=== PATIENT | female | born 1995 | race Caucasian/White ===

== ENCOUNTER 2018-08-22 15:03 | Emergency (ER) | payer OTHER ==
[2018-08-22 15:08] VITALS: BP 117/76; PULSE 88; TEMP 99.1; BMI 45.7
[2018-08-22] MEDS ORDERED: SODIUM CHLORIDE 1,000 ML IV STA (15:56)
[2018-08-22] MEDS ORDERED: ONDANSETRON 4 MG/2 ML VIAL IVPUSH ONE (15:56)
--- NOTE | 2018-08-22 15:59 | PDOC ---
History of Present Illness - General Chief Complaint: Pain Stated Complaint: ABD PAIN Time Seen by Provider: 08/22/18 15:45 History Source: Patient Exam Limitations: No Limitations Past History - Past Medical History Allergies/Adverse Reactions: Allergies Allergy/AdvReac Type Severity Reaction Status Date / Time Sulfa (Sulfonamide Allergy Rash Verified 08/22/18 15:08 Antibiotics) meperidine HCl [From Demerol] AdvReac Severe Verified 08/22/18 15:08 Home Medications: Ambulatory Orders Vitamins (Sjr) - [ .Vitamins *Rx*] 1 tab PO DAILY 11/19/12 Albuterol Sulfate Inhaler - [Ventolin HFA Inhaler -] 1 puff PO PRN PRN 05/25/16 Ferrous Sulfate [Feosol] 325 mg PO DAILY 05/25/16 Prednisone 1 tab PO DAILY 06/15/16 Ibuprofen [Motrin -] 600 mg PO TID #21 tablet 06/16/16 Anemia: Yes Asthma: Yes Cancer: No Cardiac Disorders: No COPD: No Diabetes: No HTN: No Hypercholesterolemia: No Seizures: Yes Thyroid Disease: No - Reproductive History Expected Date of Delivery: 01/18/13 (#): 3 Para: 2 Cervical CA: No Dysfunctional Uterine Bleeding: No Ectopic : No Endometrial CA: No Polycystic Ovaries: No Therapeutic (s) & number: No Tubal Ligation: No Spontaneous : 0 - Immunization History Immunization Up to Date: Yes (patient states that she did have chickenpox vaccine.) - Suicide/Smoking/Psychosocial Hx Smoking Status: No Smoking History: Never smoked Have you smoked in the past 12 months: No Number of Cigarettes Smoked Daily: 0 If you are a former smoker, when did you quit?: 06/20 Cigars Per Day: 0 Hx Alcohol Use: No Drug/Substance Use Hx: No Substance Use Type: None Hx Substance Use Treatment: No *Physical Exam - Vital Signs Last Vital Signs Temp Pulse Resp BP Pulse Ox 99.1 F 88 18 117/76 99 08/22/18 15:04 08/22/18 15:04 08/22/18 15:04 08/22/18 15:04 08/22/18 15:04 - Physical Exam General Appearance: No: Apparent Distress Respiratory/Chest: positive: Lungs Clear, Normal Breath Sounds. negative: Respiratory Distress Cardiovascular: positive: Regular Rhythm, Regular Rate, S1, S2. negative: Murmur Gastrointestinal/Abdominal: positive: Tender (along RUQ), Soft, Other (+franklin' s sign). negative: Distended, Guarding, Rebound Musculoskeletal: negative: CVA Tenderness Integumentary: positive: Normal Color Neurologic: positive: Alert, Normal Mood/Affect Moderate Sedation - Procedure Monitoring Vital Signs: Procedure Monitoring Vital Signs Temperature 99.1 F 08/22/18 15:04 Pulse Rate 88 08/22/18 15:04 Respiratory Rate 18 08/22/18 15:04 Blood Pressure 117/76 08/22/18 15:04 O2 Sat by Pulse Oximetry (%) 99 08/22/18 15:04 ED Treatment Course - LABORATORY CBC & Chemistry Diagram: 08/22/18 16:31 08/22/18 16:31 - RADIOLOGY Radiology Studies Ordered: Category Date Time Status ABDOMEN US -LIMITED [US] Stat Ultrasound 08/22/18 15:58 Ordered Medical Decision Making - Medical Decision Making 23 y/o F hx of asthma presents with RUQ pain x 1 month, worsening past 2-3 days. States went to [facility] for pain on 08/08/18, but no imaging was done. Saw her PCP 08/14/18 and was ordered for RUQ sono but has not yet had it done. Mentions noting pain radiating to back the past few days. Also with few episodes of NBNB emesis yesterday. Has occasional watery diarrhea. Denies fever , sob, cp, urinary complaints. Denies any abdominal surgeries RUQ pain: consider gallstones, cholecystitis Plan: Labs, IVF, Zofran, RUQ sono, reassess 08/22/18 15:59 Labs unremarkable Patient appears comfortable, walking around ED RUQ sono shows no evidence of gallstones or cholecystitis Advised f/u with her PCP Stable for dc 08/22/18 18:25 *DC/Admit/Observation/Transfer Diagnosis at time of Disposition: Right upper quadrant pain - Discharge Dispostion Disposition: HOME Condition at time of disposition: Stable - Referrals Referrals: Aris Dominguez MD [Primary Care Provider] - 2 Days - Patient Instructions Printed Discharge Instructions: DI for Abdominal Pain-Adult Additional Instructions: Thank you for choosing [facility]. It was a pleasure taking care of you. There was no evidence of gallstones or cholecystitis on your imaging Your blood work was normal Please follow-up with your doctor in 2-3 days Return to the Emergency Department if your symptoms worsen or persist or have other concerning symptoms. - Post Discharge Activity
[2018-08-22] MEDS: morphine CARPU-JECT 4 MG/1 ML DISP.SYRIN IVPUSH ONE ×2 (16:00→17:09)
[2018-08-22 16:41] LABS: EOS % 2.4 % (0-4.5); HEMOGLOBIN 12.9 GM/dL (10.7-15.3); LYMPH % 29.6 % (8-40); MCHC 33.9 g/dl (32.0-36.0); MEAN CELL VOLUME 82.6 fl (80-96); MEAN PLT VOLUME 8.2 fl (7.5-11.1); MONO % 4.7 % (3.8-10.2); NEUT % 62.3 % (42.8-82.8); PLATELET COUNT 356 K/MM3 (134-434); RBC 4.61 M/mm3 (3.60-5.2); RDW 13.1 % (11.6-15.6); WHITE BLOOD COUNT 9.9 K/mm3 (4.0-10.0)
[2018-08-22] MEDS ORDERED: morphine SULFATE 4 MG/ML VIAL ONE (16:42)
[2018-08-22] MEDS ORDERED: ONDANSETRON 4 MG/2 ML VIAL ONE (16:42)
[2018-08-22 17:24] LABS: ALBUMIN 3.1 g/dl (3.4-5.0); ALK PHOS 69 U/L (45-117); ANION GAP 7 MMOL/L (8-16); BILIRUBIN,TOTAL 0.2 mg/dL (0.2-1); BLOOD UREA NITROGEN 11 mg/dL (7-18); CALCIUM 8.3 mg/dL (8.5-10.1); CHLORIDE 110 mmol/L (98-107); CO2 22 mmol/L (21-32); CREATININE 0.8 mg/dL (0.55-1.3); GLUCOSE,RANDOM 75 mg/dL (74-106); LIPASE 137 U/L (73-393); SGPT/ALT 26 U/L (13-61); SODIUM 139 mmol/L (136-145); TOT PROT 7.6 g/dl (6.4-8.2)
[2018-08-22 17:25] LABS: POTASSIUM 4.6 mmol/L (3.5-5.1); SGOT/AST 34 U/L (15-37)
== END 2018-08-22 18:46 | disposition home or self-care (01) ==
LOC: JER 15:03
PROC: 3E033GC Introduction of Other Therapeutic Substance into Peripheral Vein, Percutaneous Approach (ICD-10-PCS; principal; 2018-08-22)
DX: R10.11 Right upper quadrant pain (principal); D64.9 Anemia, unspecified; J45.909 Unspecified asthma, uncomplicated
CPT/HCPCS: 36415; 76705-TC; 80053; 83690; 84703; 85025; 96374; 99283-25; J7030

== ENCOUNTER → 2019-03-10 | Day surgery (SDC) | payer OTHER ==
[2019-03-05 15:43] VITALS: BMI 47.2
[~2019-03-10] MED LIST: ACETAMINOPHEN 325 MG TABLET (FP) PO PRN; LACTATED RINGERS SOLUTION 1,000 ML IV SCH; MIDAZOLAM HCL 2 MG/2 ML SINGLE DOSE VIAL ONE; ONDANSETRON 4 MG/2 ML VIAL IVPUSH PRN; PROMETHAZINE HCL 25 MG/1 ML VIAL IVPB ONE; PROMETHAZINE HCL 25 MG/1 ML VIAL IVPUSH PRN; PROMETHAZINE HCL 25 MG/1 ML VIAL ONE; ROCURONIUM BROMIDE 50 MG/5 ML SYRINGE ONE; oxyCODONE HCL 5 MG TABLET PO PRN
--- NOTE | 2019-03-10 09:14 | HP ---
History & Physical Update - History History: No Change - Physical Physical: No Change - Assessment Assessment: No Change - Plan Plan: No Change (Agree with H&P from 03/05/19 - [facility] for hysteroscopy, D&C)
--- NOTE | 2019-03-10 13:11 | OP ---
Operative Note - Note: Operative Date: 03/10/19 (dictation [id number]) Pre-Operative Diagnosis: Abnormal uterine bleeding Operation: hysteroscopy, D&C Findings: b/l tubal ostea noted Post-Operative Diagnosis: Same as Pre-op Surgeon: Jerrica Silva Anesthesia: General Specimens Removed: endometrial curettings Estimated Blood Loss (mls): 5 Operative Report Dictated: Yes
[2019-03-10 16:32] VITALS: BP 110/59; PULSE 82; TEMP 98.1
--- NOTE | 2019-03-10 16:33 | CON.CARD ---
Consult Consult Specialty:: Cardiology Referred by:: Jerrica Silva Reason for Consultation:: chest pain - History of Present Illness Chief Complaint: chest pain History of Present Illness: 24 year old female with pmhx of asthma, reports lyme disease, ?lupus but not meds, migraines, and multiple chronic pain complaints/syndromes who underwent D/ C today for abnormal uterine bleeding. She had some brief central chest pressure after the procedure. Nonradiating. No sob, palpitations, or diaphoresis. No pnd, orthopnea, or edema. Exercise tolerance very limited due to chronic knee pain. No family history of cad/mi. No family history of sudden . CE's negative x1 EKG: sinus rhythm at 73bpm, nl axis, no acute st changes - History Source History Provided By: Patient, Medical Record - Past Medical History ...LMP: 09/21/15 - Alcohol/Substance Use Hx Alcohol Use: Yes (OCCAS) - Smoking History Smoking history: Former smoker Have you smoked in the past 12 months: Yes Aproximately how many cigarettes per day: 0 If you are a former smoker, when did you quit?: 06/20 Home Medications - Allergies Allergies/Adverse Reactions: Allergies Allergy/AdvReac Type Severity Reaction Status Date / Time Sulfa (Sulfonamide Allergy Rash Verified 08/22/18 15:08 Antibiotics) Fish Containing Products AdvReac Severe Rash Verified 11/11/18 10:22 meperidine HCl [From Demerol] AdvReac Severe Verified 08/22/18 15:08 - Home Medications Home Medications: Ambulatory Orders Albuterol Sulfate Inhaler - [Ventolin HFA Inhaler -] 1 puff PO PRN PRN 05/25/16 Ibuprofen [Motrin -] 600 mg PO TID #21 tablet 06/16/16 Amitriptyline HCl [Elavil -] 25 mg PO HS 11/11/18 Ascorbic Acid [Vitamin C -] 500 mg PO DAILY 11/11/18 Diclofenac Sodium [Voltaren] 2 gm TP TID PRN #3 tube 11/11/18 Meclizine HCl [Antivert -] 25 mg PO DAILY 11/11/18 Montelukast Na [Singulair -] 10 mg PO HS 11/11/18 propRANOLol HCL [Inderal Xl] 80 mg PO DAILY 11/11/18 Ergocalciferol (Vitamin D2) [Vitamin D2] 50,000 unit PO Q7D #4 capsule 11/20/18 Fluticasone Prop 0.05% Nasal [Flonase -] 1 - 2 spray NS DAILY 03/05/19 Fluticasone/Salmeterol [Advair Hfa 115-21 Mcg Inhaler] 2 inh PO BID 03/05/19 Galcanezumab-Gnlm [Emgality] 120 mg SQ MONTHLY 03/05/19 Ondansetron HCl [Zofran] 8 mg PO PRN PRN 03/05/19 Sumatriptan Succinate [Imitrex] 25 mg PO PRN 03/05/19 Cetirizine HCl [Zyrtec -] 10 mg PO DAILY 03/10/19 Cyclobenzaprine HCl [Flexeril -] 10 mg PO DAILY 03/10/19 Family Disease History - Family Disease History Family Disease History: Heart Disease: Mother (psych), Other: Father (no contact - in [place] [facility]), Mother, Sister (back pain, ), Son, Daughter Vital Signs: Vital Signs Temperature 98.3 F 03/10/19 15:45 Pulse Rate 75 03/10/19 15:45 Respiratory Rate 18 03/10/19 15:45 Blood Pressure 102/59 L 03/10/19 15:45 O2 Sat by Pulse Oximetry (%) 97 03/10/19 15:45 Constitutional: Yes: No Distress Neck: Yes: Supple Respiratory: Yes: CTA Bilaterally Gastrointestinal: Yes: Soft Cardiovascular: Yes: Regular Rate and Rhythm JVD: No Carotid Bruit: No PMI: Non-Displaced Heart Sounds: Yes: S1, S2 Murmur: No: Systolic Murmur Edema: No - Other Data Labs, Other Data: Troponin, BNP 03/10/19 14:00 Troponin I < 0.02 Troponin, BNP 03/10/19 14:00 Troponin I < 0.02 Imaging - Results EKG: Image Reviewed Assessment/Plan 24 year old female with pmhx of asthma, reports lyme disease, ?lupus but not meds, migraines, and multiple chronic pain complaints/syndromes who underwent D/ C today for abnormal uterine bleeding. She had some brief central chest pressure after the procedure. Nonradiating. No sob, palpitations, or diaphoresis. No pnd, orthopnea, or edema. Exercise tolerance very limited due to chronic knee pain. No family history of cad/mi. No family history of sudden . CE's negative x1 EKG: sinus rhythm at 73bpm, nl axis, no acute st changes 1) Atypical chest pain Has not recurred Exam unremarkable EKG no acute changes suggestive of ischemia No family history of sudden or cad/mi. Will have patient follow up in the office with Dr. Boom Schmidt. Spoke to Buffy in the office and she will contact patient tomorow with an appt. [phone]. Told patient to return to the ER if any recurrent chest pain.
--- NOTE | 2019-03-10 18:30 | OP ---
DATE OF OPERATION: 03/10/2019 PREOPERATIVE DIAGNOSIS: Abnormal uterine bleeding. POSTOPERATIVE DIAGNOSIS: Abnormal uterine bleeding. PROCEDURE: Hysteroscopy, dilation and curettage. SURGEON: Jerrica Silva MD ANESTHESIA: General by ESTIMATED BLOOD LOSS: 5 mL. COMPLICATIONS: None. COUNTS: Sponge, needle, and instrument count correct. DISPOSITION: Stable to PACU. BRIEF HISTORY AND PROCEDURE: The patient is a 24-year-old female who had been seen in the office with complaints of abnormal uterine bleeding. She was consented for her options and elected to undergo hysteroscopy/D&C in the operating room. Consents for the procedure were signed in the office. She was admitted to [facility] ambulatory unit on March 10, 2019, were consents were re-confirmed. The patient was taken back to the operating room and given general anesthesia, placed in the dorsal lithotomy position, prepped and draped in the usual sterile fashion and a hard timeout was performed. A speculum was placed inside the vagina. The cervix was easily visualized and anterior lip was grasped with a tenaculum. The cervix was dilated to accommodate a diagnostic hysteroscope, which was advanced to the fundus of the uterus. Bilateral tubal ostia were noted. A sharp D&C was performed in all 4 mcdonough of the uterus. A suction D&C was performed to remove detached endometrial curettings, and specimens were sent to Pathology for permanent evaluation. Once final pass with the hysteroscope revealed no evidence of uterine perforation. All instruments were removed from the vagina. Minimal bleeding was noted from the cervical os as well as tenaculum sites. The patient was awoken from anesthesia. Sponge and instrument count was correct. She was stable in the recovery room after the procedure. JERRICA SILVA DO /[id number]
--- NOTE | 2019-03-10 21:20 | EKG ---
Test Reason : Blood Pressure : / mmHG Vent. Rate : 073 BPM Atrial Rate : 073 BPM P-R Int : 150 ms QRS Dur : 076 ms QT Int : 382 ms P-R-T Axes : 015 000 015 degrees QTc Int : 420 ms NORMAL SINUS RHYTHM WITH SINUS ARRHYTHMIA POSSIBLE ANTERIOR INFARCT , AGE UNDETERMINED ABNORMAL ECG WHEN COMPARED WITH ECG OF 29-JAN-2016 17:30, NONSPECIFIC T WAVE ABNORMALITY, WORSE IN ANTERIOR LEADS PATIENT SITTING UP IN BED DURING EKG Confirmed by SHELBIE ENRIQUE MD ([id number]) on 03/10/2019 9:19:45 PM Referred By: Marecla FINK Confirmed By:SHELBIE ENRIQUE MD
--- NOTE | 2019-03-11 17:56 | PATH ---
Surgical Pathology Report Patient Name: ELIDA MACKENZIE [facility]. Rec. #: [id number] /Age/Gender: 1995 (Age: 24) / F Account: [id number] Location: [facility] SURGICAL Taken: 03/10/2019 Received: 03/10/2019 Reported: 03/11/2019 Physicians: Jerrica Silva M.D. Specimen(s) Received ENDOMETRIAL CURETTINGS Clinical History AUB Final Diagnosis ENDOMETRIAL CURETTINGS: FRAGMENTS OF PROLIFERATIVE ENDOMETRIUM. ENDOCERVICAL TISSUE WITH SQUAMOUS METAPLASIA. Electronically Signed Domonique Ni M.D. Gross Description Received in formalin, labeled "endometrial curettings" are multiple brown portions of soft tissue measuring 2.0 x 2.0 x 0.1 cm in aggregate. The specimens are submitted in toto in two cassettes. SHIVANI/03/10/2019 pedro/03/10/2019
== END | disposition home or self-care (01) ==
LOC: JASU-SURG 05:34
PROVIDERS: ATTEND Obstetrics & Gynecology
PROC: 0UDB8ZX Extraction of Endometrium, Via Natural or Artificial Opening Endoscopic, Diagnostic (ICD-10-PCS; principal; 2019-03-10 11:00)
DX: N93.9 Abnormal uterine and vaginal bleeding, unspecified (principal); R07.89 Other chest pain
CPT/HCPCS: 36415; 82550; 82553; 84484; 84703; 86850; 86900; 86901; 88305-TC; 93005; 93010; 94760

== ENCOUNTER 2020-03-21 01:25 | Emergency (ER) | payer OTHER ==
[2020-03-21 01:44] VITALS: TEMP 98.4; BMI 45.3
--- NOTE | 2020-03-21 01:44 | PDOC ---
History of Present Illness - General Chief Complaint: Lightheaded Stated Complaint: DIZZINESS Time Seen by Provider: 03/21/20 01:33 History Source: Patient - History of Present Illness Initial Comments: 03/21/20 02:44 25 year old female Reports that she is 9 weeks brought in by ambulance for dizziness while having a heated conversation with nephew. patient had one episode of vomiting and turned pale. patient reports that she has been having nausea / vomiting and unable to keep food down. patient is currently on zofran for nausea, Denies vaginal bleeding, vaginal discharge, urinary symptoms. Patient reports that her symptoms of dizziness is improving now. denies chest pain, fever/ chills, headache Denies shaking episode or incontinence of bowel or urine 03/21/20 03:30 Past History - Medical History Allergies/Adverse Reactions: Allergies Allergy/AdvReac Type Severity Reaction Status Date / Time Sulfa (Sulfonamide Allergy Rash Verified 01/20/20 12:02 Antibiotics) Fish Containing Products AdvReac Severe Rash Verified 01/20/20 12:02 meperidine HCl [From Demerol] AdvReac Severe Verified 01/20/20 12:02 Home Medications: Ambulatory Orders Albuterol Sulfate Inhaler - [Ventolin HFA Inhaler -] 1 puff PO PRN PRN 05/25/16 Diclofenac Sodium [Voltaren] 2 gm TP TID PRN #3 tube 06/14/19 Ibuprofen [Motrin -] 800 mg PO PRN PRN 01/20/20 Propranolol HCl 80 mg PO BID 01/20/20 Cephalexin Monohydrate [Keflex -] 500 mg PO BID #20 capsule 03/21/20 Doxylamine Succinate/Vit B6 [Ana María Doty 10-10 mg Tablet] 1 each PO HS PRN #14 tablet. 03/21/20 Anemia: No Asthma: Yes (has inhaler) Cancer: No Cardiac Disorders: Yes (seeing cardiology ) CVA: No COPD: No CHF: No Diabetes: No GI Disorders: Yes (cholecystitis) HTN: Yes Hypercholesterolemia: No Liver Disease: No Seizures: Yes (after an epidural) Thyroid Disease: No - Surgical History Neurologic Surgery: No - Reproductive History Expected Date of Delivery: 01/18/13 (#): 3 Para: 2 Cervical CA: No Dysfunctional Uterine Bleeding: No Ectopic : No Endometrial CA: No Polycystic Ovaries: No Therapeutic (s) & number: No Tubal Ligation: No Spontaneous : 0 - Immunization History Immunization Up to Date: Yes (patient states that she did have chickenpox vaccine.) - Psycho-Social/Smoking History Smoking Status: No Smoking History: Former smoker Have you smoked in the past 12 months: No Number of Cigarettes Smoked Daily: 0 If you are a former smoker, when did you quit?: 06/20 Cigars Per Day: 0 'Breaking Loose' booklet given: 03/05/19 *Physical Exam - Vital Signs 03/21/20 03:26 Last Vital Signs Temp Pulse Resp BP Pulse Ox 98.4 F 98 H 16 112/69 99 03/21/20 01:36 03/21/20 01:36 03/21/20 01:36 03/21/20 01:36 03/21/20 01:36 - Physical Exam General Appearance: Yes: Appropriately Dressed Respiratory/Chest: positive: Lungs Clear, Normal Breath Sounds Gastrointestinal/Abdominal: positive: Normal Bowel Sounds, Soft. negative: Tender Extremity: positive: Normal Capillary Refill, Normal Inspection, Normal Range of Motion Integumentary: positive: Normal Color, Dry, Warm Neurologic: positive: Fully Oriented, Alert, Normal Mood/Affect ED Treatment Course - LABORATORY CBC & Chemistry Diagram: 03/21/20 02:17 03/21/20 02:17 Medical Decision Making - Medical Decision Making A:Hyperemesis gravidum; dizziness P: labs EKG TVUS 03/21/20 02:47 TVUS: Single live intrauterine gestation with measurements corresponding to 9 weeks and 2 days. A yolk sac is observed. heart rate is 156 bpm. Cervix measures 3.86 cm in length and is closed. Amniotic fluid is subjectively normal. A normal left ovary. Right ovary could not be visualized. 03/21/20 03:30 patient is feeling better. patient has a business consultant appointment in 2 days. Discharge - Discharge Information Problems reviewed: Yes Clinical Impression/Diagnosis: Orthostatic dizziness, Hyperemesis affecting , antepartum UTI (urinary tract infection) Qualifiers: Urinary tract infection type: acute cystitis Hematuria presence: without hematuria Qualified Code(s): N30.00 - Acute cystitis without hematuria Disposition: HOME - Additional Discharge Information Prescriptions: Doxylamine Succinate/Vit B6 [Dickishoregis Dr 10-10 mg Tablet] 1 each PO HS PRN #14 tablet.dr PALENCIA Reason: Nausea Cephalexin Monohydrate [Keflex -] 500 mg PO BID #20 capsule - Follow up/Referral - Patient Discharge Instructions Patient Printed Discharge Instructions: Hyperemesis Gravidarum Additional Instructions: Drink plenty of fluids. Eat smaller meals Take Diclegis as prescribed It is important that you follow-up with the [facility] as soon as possible. Return to the ER if you are soaking 2 pads per hour, severe abdominal pain, or worsening symptoms. - Post Discharge Activity Work/Back to School Note: Back to Work
--- NOTE | 2020-03-21 01:45 | PDOC ---
*Physical Exam - Vital Signs Last Vital Signs Temp Pulse Resp BP Pulse Ox 98.4 F 98 H 16 112/69 99 03/21/20 01:36 03/21/20 01:36 03/21/20 01:36 03/21/20 01:36 03/21/20 01:36 ED Treatment Course - LABORATORY CBC & Chemistry Diagram: 03/21/20 02:17 03/21/20 02:17 Medical Decision Making - Medical Decision Making 03/21/20 01:45 Patient seen by the advanced practice provider under my supervision. Ancillary testing reviewed as necessary. I agree with plan as outlined by the advanced practice provider. Discharge - Discharge Information Problems reviewed: Yes Clinical Impression/Diagnosis: Orthostatic dizziness, Hyperemesis affecting , antepartum UTI (urinary tract infection) Qualifiers: Urinary tract infection type: acute cystitis Hematuria presence: without hematuria Qualified Code(s): N30.00 - Acute cystitis without hematuria Disposition: HOME - Additional Discharge Information Prescriptions: Doxylamine Succinate/Vit B6 [Ana María Doty 10-10 mg Tablet] 1 each PO HS PRN #14 tablet. PRN Reason: Nausea Cephalexin Monohydrate [Keflex -] 500 mg PO BID #20 capsule - Follow up/Referral - Patient Discharge Instructions Patient Printed Discharge Instructions: Hyperemesis Gravidarum Additional Instructions: Drink plenty of fluids. Eat smaller meals Take Diclegis as prescribed It is important that you follow-up with the [facility] as soon as possible. Return to the ER if you are soaking 2 pads per hour, severe abdominal pain, or worsening symptoms. - Post Discharge Activity Work/Back to School Note: Back to Work
[2020-03-21] MEDS ORDERED: SODIUM CHLORIDE 1,000 ML IV STA (01:55)
[2020-03-21] MEDS ORDERED: ONDANSETRON 4 MG/2 ML VIAL IVPB ONE (02:02)
--- OUTSIDE RECORDS SUMMARY | 2020-03-21 02:14 | XMS ---
:1995 Demographics Address [address] [place] [address] Mobile Email Address Preferred Language en Marital Status or Congregation Affiliation [facility] Ethnic Group or Author Organization [facility] Care Team Providers Name Role Phone ENRRIQUE VICTORIA Unavailable Unavailable CALI BOSWELL Unavailable Unavailable ED STAFF PHYSICIAN, STAFF Unavailable Unavailable [facility], WJCS9 Unavailable Unavailable HINDU, HUMAYUN Unavailable Unavailable ED STAFF PHYSICIANSTEPHANI Unavailable Unavailable [facility], HDSW9 Unavailable Unavailable MAHI BUSH Unavailable Unavailable DIMITRY FOSS Unavailable Unavailable ED STAFF PHYSICIAN Unavailable Unavailable Re-disclosure Warning The records that you are about to access may contain information from federally- assisted alcohol or drug abuse programs. If such information is present, then the following federally mandated warning applies: This information has been disclosed to you from records protected by federal confidentiality rules (42 CFR part 2). The federal rules prohibit you from making any further disclosure of this information unless further disclosure is expressly permitted by the written consent of the person to whom it pertains or as otherwise permitted by 42 CFR part 2. A general authorization for the release of medical or other information is NOT sufficient for this purpose. The Federal rules restrict any use of the information to criminally investigate or prosecute any alcohol or drug abuse patient.The records that you are about to access may contain highly sensitive health information, the redisclosure of which is protected by Article 27-F of the [place] State Public Health law. If you continue you may haveaccess to information: Regarding HIV / AIDS; Provided by facilities licensed or operated by the [facility] Office of Mental Health; or Provided by the [facility] Office for People With Developmental Disabilities. If such information is present, then the following [facility] mandated warning applies: This information has been disclosed to you from confidential records which are protected by state law. State law prohibits you from making any further disclosure of this information without the specific written consent of the person to whom it pertains, or as otherwise permitted by law. Any unauthorized further disclosure in violation of state law may result in a fine or group home sentence or both. A general authorization for the release of medical or other information is NOT sufficient authorization for further disclosure. Allergies and Adverse Reactions Type Description Substance Reaction Status Data Source(s ) Propensity to crab and milk No known intolerance Active eCW3 ([facility] Sat[facility]on adverse allergies [facility] reactions (situation) Care) Propensity to crab and milk No known intolerance Active eCW3 ([facility] Sat[facility] adverse allergies [facility] reactions (situation) Care) Propensity to crab and milk No known intolerance Active eCW3 ([facility] adverse allergies [facility] reactions (situation) Care) Propensity to crab and milk No known intolerance Active eCW3 ([facility] Sat[facility] adverse allergies [facility] reactions (situation) Care) Propensity to crab and milk No known intolerance Active eCW3 ([facility] Sat[facility]on adverse allergies [facility] reactions (situation) Care) Propensity to crab and milk No known intolerance Active eCW3 ([facility] Sat[facility] adverse allergies [facility] reactions (situation) Care) Propensity to crab and milk No known intolerance Active eCW3 ([facility] adverse allergies [facility] reactions (situation) Care) Propensity to crab and milk No known intolerance Active eCW3 ([facility] Sat[facility] adverse allergies [facility] reactions (situation) Care) Drug allergy Demerol Meperidine anaphylaxis Active eCW3 ([facility]) Drug allergy Sulfa Sulfa [place] (Sulfonamide (Sulfonamide Pending sale to [facility]) Antibiotics) Care Corpo ration Drug allergy No Known Drug No Known Drug [facility] Allergies [facility] Corpor[facility] on Food allergy Seafood [facility] on Propensity to sulfa No known Anaphylaxis Active eCW3 ([facility] on adverse allergies [facility] reactions (situation) Care) Propensity to sulfa No known Anaphylaxis Active eCW3 ([facility] on adverse allergies [facility] reactions (situation) Care) Propensity to sulfa No known Anaphylaxis Active eCW3 ([facility] adverse allergies [facility] reactions (situation) Care) Propensity to sulfa No known Anaphylaxis Active eCW3 ([facility] adverse allergies [facility] reactions (situation) Care) Propensity to sulfa No known Anaphylaxis Active eCW3 ([facility] adverse allergies [facility] reactions (situation) Care) Propensity to sulfa No known Anaphylaxis Active eCW3 ([facility] adverse allergies [facility] reactions (situation) Care) Propensity to sulfa No known Anaphylaxis Active eCW3 ([facility] adverse allergies [facility] reactions (situation) Care) Propensity to sulfa No known Anaphylaxis Active eCW3 ([facility] adverse allergies [facility] reactions (situation) Care) Propensity to sulfa No known Anaphylaxis Active eCW3 ([facility] adverse allergies [facility] reactions (situation) Care) Propensity to sulfa No known Anaphylaxis Active eCW3 ([facility] adverse allergies [facility] reactions (situation) Care) Encounters Encounter Providers Location Date Indications Data Source(s ) Outpatient Attender: PRUDENCE 03/23/2020 N91.2 [facility] DIMITRY EagleAdmitter: 06:00:00 AM [facility] DIMITRY FOSS EDT Corporati on A.Referrer: MAHI BUSH N91.2 Outpatient Attender: FELICITY 03/16/2020 N91.2 [facility] HINDU, 02:19:00 [facility] Sumit VICTORIA N91.2 R39.14 Outpatient Attender: CALI Sheikh 02/14/2020 07:10:00 A [facility] CALI LAdmitter: CALI LEIVA LReferrer: CALI Fuentes Outpatient Attender: [id number] [facility] 02/05/2020 12:28:35 PM I ([facility] EDT Care [facility]) Patient admitted. Emergency Attender: ED STAFF H 01/30/2020 09:32:00 PM [facility] PHYSICIANAttender: STAFF ED EDT - 01/31/2020 Medical Center STAFF PHYSICIANAdmitter: ED 01:50:00 AM EDT STAFF PHYSICIAN Patient discharged. Emergency Attender: STEPHANI ED STAFF H 12/16/2019 06:59:00 PM [facility] PHYSICIANAttender: STAFF ED EDT - 12/16/2019 Medical Center STAFF PHYSICIANAdmitter: STEPHANI 10:17:00 PM EDT ED STAFF PHYSICIAN Patient discharged. Emergency Attender: ED STAFF H 10/02/2019 08:17:00 PM [facility] PHYSICIANAttender: STAFF ED EDT - 10/03/2019 Medical Center STAFF PHYSICIANAdmitter: ED 12:45:00 AM EDT STAFF PHYSICIAN Patient discharged. Outpatient Attender: [id number] [facility] 09/24/2019 06:52:18 AM [facility] ([facility] EDT Collaborative) Patient admitted. Outpatient Attender: [id number] [facility] 08/25/2019 02:24:32 PM [facility] ([facility] Care EST Collaborative) Patient admitted. Outpatient Attender: [id number] [facility] 08/25/2019 02:24:29 PM [facility] ([facility] EST Collaborative) Patient admitted. Outpatient [facility] 04/08/2019 12:00:00 AM eCW3 ([place] [id number] EDT - 04/08/2019 12:00:00 Health Care) AM EDT Outpatient [facility] 02/25/2019 12:00:00 AM eCW3 ([place] [id number] EDT - 02/25/2019 12:00:00 Health Care) AM EDT Outpatient [facility] 02/17/2019 12:00:00 AM eCW3 ([place] [id number] EDT - 02/17/2019 12:00:00 [facility] Care) AM EDT Outpatient [facility] 01/29/2019 12:00:00 AM eCW3 ([place] [id number] EDT - 01/29/2019 12:00:00 Health Care) AM EDT Outpatient 01/25/2019 10:44:40 AM GS I ([facility] EDT Care Collabora tive) Patient admitted. Outpatient 01/25/2019 10:44:37 AM EDT [facility] ([facility] Care Collaborative) Patient admitted. Outpatient 01/25/2019 10:44:25 AM EDT [facility] ([facility] Care Collaborative) Patient admitted. Outpatient 01/25/2019 10:44:21 AM EDT [facility] ([facility] Care Collaborative) Patient admitted. Outpatient [facility] 12/11/2018 12:00:00 AM eCW3 ([facility] A28 EDT - 12/11/2018 Health C are) 12:00:00 AM EDT Outpatient [facility] 11/12/2018 12:00:00 AM eCW3 ([facility] A28 EDT - 11/12/2018 Health C are) 12:00:00 AM EDT New Therapy, 45-60 [facility] 10/30/2018 12:00:00 AM eCW3 ([facility] A28 EDT - 10/30/2018 Health C are) 12:00:00 AM EDT (CPE) Annual/CPE [facility] 10/29/2018 12:00:00 A M eCW3 ([facility] A28 EDT - 10/29/2018 Health are) 12:00:[address] [facility] 10/15/2018 12:00:00 AM eCW3 ([facility] A28 EDT - 10/15/2018 Health are) 12:00:00 AM EDT Emergency H 10/08/2018 12:34:00 AM [facility] Outpatient [facility] 09/25/2018 12:00:00 AM eCW3 ([facility] A28 EDT - 09/25/2018 Health C are) 12:00:00 AM EDT Immunizations Vaccine Date Status Description Data Source(s) New in 2011. IIV4 05/24/2015 completed eCW3 ([facility] [place] 01:51:00 PM [facility]) HPV, quadrivalent 12/27/2011 completed eCW3 ([facility] 03:10:50 PM [facility]) HPV, quadrivalent 04/19/2011 completed eCW3 ([facility] [place] 11:48:42 AM ED [facility]) LAIV3 04/02/2011 completed eCW3 ([facility] 09:32:07 PM ED [facility]) Hep A, ped/adol, 2 dose 12/20/2010 completed eCW3 ([facility] [place] 05:16:21 PM ED [facility]) meningococcal MCV4P 12/20/2010 completed eCW3 ( [facility] [place] 05:16:07 PM ED [facility]) Medications Medication Brand Start Product Dose Route Administrative Pharmacy at Indications Reaction Description Data Name Date Form Instructions Instructions Source(s) Ondansetron Zofran 12/22/ 1.0 active Zofran 4 MG eCW3 4 MG Oral 4 MG 2020 {tabl ([facility] Tablet 12:00: et} [place] [Zofran] 00 AM Health Zofran 4 MG EDT Care) Ondansetron Zofran .0 active Zofran 4 MG eCW3 4 MG Oral 4 MG 2019 {tabl ([facility] Tablet 12:00: et} [place] [Zofran] 00 AM Health Zofran 4 MG EDT Care) Ondansetron Zofran .0 active Zofran 4 MG eCW3 4 MG Oral 4 MG 2019 {tabl ([facility] Tablet 12:00: et} [place] [Zofran] 00 AM Health Zofran 4 MG EDT Care) Ondansetron Zofran .0 active Zofran 4 MG eCW3 4 MG Oral 4 MG 2019 {tabl ([facility] Tablet 12:00: et} [place] [Zofran] 00 AM Health Zofran 4 MG EDT Care) Levofloxaci Levaqu 1.0 active Levaqui n 500 eCW3 n 500 MG in 500 2019 {tabl MG ([facility] Oral Tablet MG 12:00: et} [place] [Levaquin] 00 AM Health Levaquin EDT Care) 500 MG Acidophilus Acidop 09/26/ active Acidoph ilus eCW3 Probiotic hilus 2019 Probiotic ([facility] Blend - Probio 12:00: Blend - [place] tic 00 AM Health Blend EDT Care) - Hydrocortis Neomyc 08/18/ 4.0 suspend Neomyc in-[place] eCW3 one 10 in-[place] 2019 {drop ed ymyxin-HC ([place] MG/ML / ymyxin 12:00: s_int 3.5-69203-6 [place] Neomycin -HC 00 AM o_aff Health 3.5 MG/ML / 3.5-10 EST ected Care) Polymyxin B 000-1 _ear} 20423 UNT/ML Otic Solution Neomycin-Po lymyxin-HC 3.5-34762-2 2 ML Ketoro 08/18/ 2.0 suspend Ketorolac eCW 3 Ketorolac lac 2019 {ml} ed Tromethamine ([facility] udson Tromethamin Tromet 12:00: 60 MG/2ML [place] e 30 MG/ML hamine 00 AM Health Cartridge 60 EST Care) Ketorolac MG/2ML Tromethamin e 60 MG/2ML Hydrocortis Neomyc 4.0 suspend Neomyc in-[place] eCW3 one 2019 {drop ed ymyxin-HC ([place] MG/ML / ymyxin 12:00: s_int 3.5-95729-5 [place] Neomycin -HC 00 AM o_aff Health 3.5 MG/ML / 3.5-10 EST ected Care) Polymyxin B 000-1 _ear} 70603 UNT/ML Otic Solution Neomycin-Po lymyxin-HC 3.5-38915-1 2 ML Ketoro 08/18/ 2.0 suspend Ketorolac eCW 3 Ketorolac lac 2019 {ml} ed Tromethamine (H udson Tromethamin Tromet 12:00: 60 MG/2ML [place] e 30 MG/ML hamine 00 AM Health Cartridge 60 EST Care) Ketorolac MG/2ML Tromethamin e 60 MG/2ML Hydrocortis Neomyc 4.0 suspend Neomyc in-[place] eCW3 one 2019 {drop ed ymyxin-HC ([place] MG/ML / ymyxin 12:00: s_int 3.5-50228-7 [place] Neomycin -HC 00 AM o_aff Health 3.5 MG/ML / 3.5-10 EST ected Care) Polymyxin B 000-1 _ear} 16133 UNT/ML Otic Solution Neomycin-Po lymyxin-HC 3.5-87661-9 2 ML Ketoro 08/18/ 2.0 suspend Ketorolac eCW 3 Ketorolac lac 2020 {ml} ed Tromethamine ([facility] ud[place] Tromethamin Tromet 12:00: 60 MG/2ML [place] e 30 MG/ML hamine 00 AM Health Cartridge 60 EST Care) Ketorolac MG/2ML Tromethamin e 60 MG/2ML Hydrocortis Neomyc 4.0 suspend Neomyc in-[place] eCW3 one 2019 {drop ed ymyxin-HC ([place] MG/ML / ymyxin 12:00: s_int 3.5-52429-3 [place] Neomycin -HC 00 AM o_aff Health 3.5 MG/ML / 3.5-10 EST ected Care) Polymyxin B 000-1 _ear} 89794 UNT/ML Otic Solution Neomycin-Po lymyxin-HC 3.5-99505-9 2 ML Ketoro 2.0 suspend Ketorolac eCW 3 Ketorolac lac 2020 {ml} ed Tromethamine (H udson Tromethamin Tromet 12:00: 60 MG/2ML [place] e 30 MG/ML hamine 00 AM Health Cartridge 60 EST Care) Ketorolac MG/2ML Tromethamin e 60 MG/2ML 2 ML Ketoro 2.0 suspend Ketorolac eCW 3 Ketorolac lac 2020 {ml} ed Tromethamine (H udson Tromethamin Tromet 12:00: 60 MG/2ML [place] e 30 MG/ML hamine 00 AM Health Cartridge 60 EST Care) Ketorolac MG/2ML Tromethamin e 60 MG/2ML 2 ML Ketoro 2.0 suspend Ketorolac eCW 3 Ketorolac lac 2020 {ml} ed Tromethamine (H udson Tromethamin Tromet 12:00: 60 MG/2ML [place] e 30 MG/ML hamine 00 AM Health Cartridge 60 EST Care) Ketorolac MG/2ML Tromethamin e 60 MG/2ML Hydrocortis Neomyc 4.0 suspend Neomyc in-[place] eCW3 2019 {drop ed ymyxin-HC ([place] MG/ML / ymyxin 12:00: s_int 3.5-90281-4 [place] Neomycin -HC 00 AM o_aff Health 3.5 MG/ML / 3.5-10 EST ected Care) Polymyxin B 000-1 _ear} 07489 UNT/ML Otic Solution Neomycin-Po lymyxin-HC 3.5-42114-6 Hydrocortis Neomyc 4.0 suspend Neomyc in-[place] eCW3 one 2019 {drop ed ymyxin-HC ([place] MG/ML / ymyxin 12:00: s_int 3.5-61130-3 [place] Neomycin -HC 00 AM o_aff Health 3.5 MG/ML / 3.5-10 EST ected Care) Polymyxin B 000-1 _ear} 43196 UNT/ML Otic Solution Neomycin-Po lymyxin-HC 3.5-25868-6 Cepacol Cepaco .0 active Cepacol Sor e eCW3 Sore Throat l Sore 2018 {loze Throat (Hu dson 10-2.1 MG Throat 12:00: nge_a 10-2.1 MG [place] 10-2.1 00 AM s_nee Health MG EST ded} Care) Amoxicillin Amoxic .0 suspend Amoxic illin- eCW3 875 MG / illin- 2018 {tabl ed Pot ([place] Clavulanate Pot 12:00: et} Clavulanate [place] 125 MG Oral Clavul 00 AM 875-125 MG Health Tablet anate EST Care) Amoxicillin 875-12 -Pot 5 MG Clavulanate 875-125 MG Face Mask Face 06/16/ suspend Face Mask eCW3 Earloop-Sty Mask 2018 ed Earloop-Styl ([place] le - Earloo 12:00: e - [place] p-Styl 00 AM Health e - EST Care) Metoclopram Metocl .0 active Metoclo prami eCW3 kallie 1 MG/ML oprami 2018 {ml_b de HCl 10 ([facility] Oral de HCl 12:00: efore MG/10ML [place] Solution 10 00 AM _meal Health Metoclopram MG/10M EST s} Care) kallie HCl 10 L MG/10ML Amoxicillin Amoxic .0 suspend Amoxic illin- eCW3 875 MG / illin- 2018 {tabl ed Pot ([place] Clavulanate Pot 12:00: et} Clavulanate [place] 125 MG Oral Clavul 00 AM 875-125 MG Health Tablet anate EST Care) Amoxicillin 875-12 -Pot 5 MG Clavulanate 875-125 MG Face Mask Face 06/16/ active Face Mask e CW3 Earloop-Sty Mask 2019 Earloop-Styl ([place] le - [place] 12:00: e - [place] p-Styl 00 AM Health e - EST Care) Metoclopram Metocl .0 active Metoclo prami eCW3 kallie 1 MG/ML oprami 2018 {ml_b de HCl 10 ([facility] Oral de HCl 12:00: efore MG/10ML [place] Solution 10 00 AM _meal Health Metoclopram MG/10M EST s} Care) kallie HCl 10 L MG/10ML Amoxicillin Amoxic 1.0 suspend Amoxic illin- eCW3 875 MG / illin- 2018 {tabl ed Pot ([place] Clavulanate Pot 12:00: et} Clavulanate [place] 125 MG Oral Clavul 00 AM 875-125 MG Health Tablet anate EST Care) Amoxicillin 875-12 -Pot 5 MG Clavulanate 875-125 MG Face Mask Face 06/16/ suspend Face Mask eCW3 Earloop-Sty Mask 2019 ed Earloop-Styl ([place] - [place] 12:00: e - [place] p-Styl 00 AM Health e - EST Care) Face Mask Face 06/16/ suspend Face Mask eCW3 Earloop-Sty Mask 2019 ed Earloop-Styl ([place] le - [place] 12:00: e - [place] p-Styl 00 AM Health e - EST Care) Face Mask Face 06/16/ active Face Mask e CW3 Earloop-Sty Mask 2019 Earloop-Styl ([facility] le - [place] 12:00: e - [place] p-Styl 00 AM Health e - EST Care) Metoclopram Metocl .0 active Metoclo prami eCW3 kallie 1 MG/ML oprami 2018 {ml_b de HCl 10 ([facility] Oral de HCl 12:00: efore MG/10ML [place] Solution 10 00 AM _meal Health Metoclopram MG/10M EST s} Care) kallie HCl 10 L MG/10ML Metoclopram Metocl .0 active Metoclo prami eCW3 kallie 1 MG/ML oprami 2018 {ml_b de HCl 10 ([facility] Oral de HCl 12:00: efore MG/10ML [place] Solution 10 00 AM _meal Health Metoclopram MG/10M EST s} Care) kallie HCl 10 L MG/10ML Amoxicillin Amoxic .0 suspend Amoxic illin- eCW3 875 MG / illin- 2018 {tabl ed Pot ([facility] Clavulanate Pot 12:00: et} Clavulanate [place] 125 MG Oral Clavul 00 AM 875-125 MG Health Tablet anate EST Care) Amoxicillin 875-12 -Pot 5 MG Clavulanate 875-125 MG Face Mask Face 06/16/ active Face Mask e CW3 Earloop-Sty Mask 2018 Earloop-Styl ([place] le - [place] 12:00: e - [place] p-Styl 00 AM Health e - EST Care) Cepacol Cepaco .0 suspend Cepacol So re eCW3 Sore Throat l Sore 2018 {loze ed Throat (Hu dson 10-2.1 MG Throat 12:00: nge_a 10-2.1 MG [place] 10-2.1 00 AM s_nee Health MG EST ded} Care) Cepacol Cepaco .0 active Cepacol Sor e eCW3 Sore Throat l Sore 2018 {loze Throat (Hu dson 10-2.1 MG Throat 12:00: nge_a 10-2.1 MG [place] 10-2.1 00 AM s_nee Health MG EST ded} Care) Metoclopram Metocl .0 active Metoclo prami eCW3 kallie 1 MG/ML oprami 2018 {ml_b de HCl 10 ([facility] Oral de HCl 12:00: efore MG/10ML [place] Solution 10 00 AM _meal Health Metoclopram MG/10M EST s} Care) kallie HCl 10 L MG/10ML Amoxicillin Amoxic .0 suspend Amoxic illin- eCW3 875 MG / illin- 2018 {tabl ed Pot ([facility] Clavulanate Pot 12:00: et} Clavulanate [place] 125 MG Oral Clavul 00 AM 875-125 MG Health Tablet anate EST Care) Amoxicillin 875-12 -Pot 5 MG Clavulanate 875-125 MG Amoxicillin Amoxic .0 active Amoxici llin- eCW3 875 MG / illin- 2018 {tabl Pot ([place] Clavulanate Pot 12:00: et} Clavulanate [place] 125 MG Oral Clavul 00 AM 875-125 MG Health Tablet anate EST Care) Amoxicillin 875-12 -Pot 5 MG Clavulanate 875-125 MG Face Mask Face 06/16/ active Face Mask e CW3 Earloop-Sty Mask 2019 Earloop-Styl ([place] le - [place] 12:00: e - [place] p-Styl 00 AM Health e - EST Care) Cepacol Cepaco .0 active Cepacol Sor e eCW3 Sore Throat l Sore 2018 {loze Throat (Hu dson 10-2.1 MG Throat 12:00: nge_a 10-2.1 MG [place] 10-2.1 00 AM s_nee Health MG EST ded} Care) Metoclopram Metocl .0 active Metoclo prami eCW3 kallie 1 MG/ML oprami 2018 {ml_b de HCl 10 ([facility] Oral de HCl 12:00: efore MG/10ML [place] Solution 10 00 AM _meal Health Metoclopram MG/10M EST s} Care) kallie HCl 10 L MG/10ML Amoxicillin Amoxic .0 suspend Amoxic illin- eCW3 875 MG / illin- 2019 {tabl ed Pot ([facility] Clavulanate Pot 12:00: et} Clavulanate [place] 125 MG Oral Clavul 00 AM 875-125 MG Health Tablet anate EST Care) Amoxicillin 875-12 -Pot 5 MG Clavulanate 875-125 MG Metoclopram Metocl .0 active Metoclo prami eCW3 kallie 1 MG/ML oprami 2018 {ml_b de HCl 10 ([facility] Oral de HCl 12:00: efore MG/10ML [place] Solution 10 00 AM _meal Health Metoclopram MG/10M EST s} Care) kallie HCl 10 L MG/10ML Cepacol Cepaco .0 suspend Cepacol So re eCW3 Sore Throat l Sore 2018 {loze ed Throat (Hu dson 10-2.1 MG Throat 12:00: nge_a 10-2.1 MG [place] 10-2.1 00 AM s_nee Health MG EST ded} Care) Cepacol Cepaco .0 suspend Cepacol So re eCW3 Sore Throat l Sore 2018 {loze ed Throat (Hu dson 10-2.1 MG Throat 12:00: nge_a 10-2.1 MG [place] 10-2.1 00 AM s_nee Health MG EST ded} Care) Metoclopram Metocl 10.0 active Metoclo prami eCW3 kallie 1 MG/ML oprami 2018 {ml_b de HCl 10 ([facility] Oral de HCl 12:00: efore MG/10ML [place] Solution 10 00 AM _meal Health Metoclopram MG/10M EST s} Care) kallie HCl 10 L MG/10ML Cepacol Cepaco .0 active Cepacol Sor e eCW3 Sore Throat l Sore 2018 {loze Throat (Hu dson 10-2.1 MG Throat 12:00: nge_a 10-2.1 MG [place] 10-2.1 00 AM s_nee Health MG EST ded} Care) Hydrocortis Neomyc .0 suspend Neomyc in-[place] eCW3 one in2018 {drop ed ymyxin-HC ([place] MG/ML / ymyxin 12:00: s_int 3.5-13583-7 [place] Neomycin -HC 00 AM o_aff Health 3.5 MG/ML / 3.5-10 EST ected Care) Polymyxin B 000-1 _ear} 96831 UNT/ML Otic Suspension Neomycin-Po lymyxin-HC 3.5-99225-4 Hydrocortis Neomyc .0 active Neomyci n-[place] eCW3 one in2018 {drop ymyxin-HC ([place] MG/ML / ymyxin 12:00: s_int 3.5-36500-0 [place] Neomycin -HC 00 AM o_aff Health 3.5 MG/ML / 3.5-10 EST ected Care) Polymyxin B 000-1 _ear} 56468 UNT/ML Otic Suspension Neomycin-Po lymyxin-HC 3.5-72714-6 Omeprazole Omepra 06/10/ active Omeprazo le eCW3 40 MG zole 2019 40 MG ([facility] Delayed 40 MG 12:00: [place] Release 00 AM Health Oral EST Care) Capsule Hydrocortis Neomyc .0 suspend Neomyc in-[place] eCW3 one in2018 {drop ed ymyxin-HC ([place] MG/ML / ymyxin 12:00: s_int 3.5-14507-1 [place] Neomycin -HC 00 AM o_aff Health 3.5 MG/ML / 3.5-10 EST ected Care) Polymyxin B 000-1 _ear} 76396 UNT/ML Otic Suspension Neomycin-Po lymyxin-HC 3.5-23574-2 Omeprazole Omepra 06/10/ active Omeprazo le eCW3 40 MG zole 2019 40 MG ([facility] Delayed 40 MG 12:00: [place] Release 00 AM Health Oral EST Care) Capsule Omeprazole Omepra 06/10/ active Omeprazo le eCW3 40 MG zole 2019 40 MG ([facility] Delayed 40 MG 12:00: [place] Release 00 AM Health Oral EST Care) Capsule Hydrocortis Neomyc 4.0 suspend Neomyc in-[place] eCW3 one 2018 {drop ed ymyxin-HC ([place] MG/ML / ymyxin 12:00: s_int 3.5-97461-1 [place] Neomycin -HC 00 AM o_aff Health 3.5 MG/ML / 3.5-10 EST ected Care) Polymyxin B 000-1 _ear} 29245 UNT/ML Otic Suspension Neomycin-Po lymyxin-HC 3.5-03344-0 Omeprazole Omepra 06/10/ active Omeprazo le eCW3 40 MG zole 2019 40 MG ([facility] Delayed 40 MG 12:00: [place] Release 00 AM Health Oral EST Care) Capsule Omeprazole Omepra 06/10/ active Omeprazo le eCW3 40 MG zole 2019 40 MG ([facility] Delayed 40 MG 12:00: [place] Release 00 AM Health Oral EST Care) Capsule Omeprazole Omepra 06/10/ active Omeprazo le eCW3 40 MG zole 2019 40 MG ([facility] Delayed 40 MG 12:00: [place] Release 00 AM Health Oral EST Care) Capsule Simethicone UNK 06/10/ 2.0 active Simethico ne eCW3 125 MG 2018 {tabl 125 MG ([facility] 12:00: et} [place] 00 AM Health EST Care) Hydrocortis Neomyc 4.0 suspend Neomyc in-[place] eCW3 one 2018 {drop ed ymyxin-HC ([place] MG/ML / ymyxin 12:00: s_int 3.5-70672-8 [place] Neomycin -HC 00 AM o_aff Health 3.5 MG/ML / 3.5-10 EST ected Care) Polymyxin B 000-1 _ear} 26858 UNT/ML Otic Suspension Neomycin-Po lymyxin-HC 3.5-51753-5 Omeprazole Omepra 06/10/ active Omeprazo le eCW3 40 MG zole 2019 40 MG ([facility] Delayed 40 MG 12:00: [place] Release 00 AM Health Oral EST Care) Capsule Hydrocortis Neomyc 4.0 suspend Neomyc in-[place] eCW3 one 2018 {drop ed ymyxin-HC ([place] MG/ML / ymyxin 12:00: s_int 3.5-34977-1 [place] Neomycin -HC 00 AM o_aff Health 3.5 MG/ML / 3.5-10 EST ected Care) Polymyxin B 000-1 _ear} 88572 UNT/ML Otic Suspension Neomycin-Po lymyxin-HC 3.5-25848-7 Omeprazole Omepra 06/10/ active Omeprazo le eCW3 40 MG zole 2018 40 MG ([facility] Delayed 40 MG 12:00: [place] Release 00 AM Health Oral EST Care) Capsule Hydrocortis Neomyc 4.0 suspend Neomyc in-[place] eCW3 one 2018 {drop ed ymyxin-HC ([place] MG/ML / ymyxin 12:00: s_int 3.5-29566-6 [place] Neomycin -HC 00 AM o_aff Health 3.5 MG/ML / 3.5-10 EST ected Care) Polymyxin B 000-1 _ear} 25349 UNT/ML Otic Suspension Neomycin-Po lymyxin-HC 3.5-55222-4 trolamine Asperc 05/27/ active Aspercrem e eCW3 salicylate deandre 2019 10 % ([facility] 100 MG/ML 10 % 12:00: [facility] Topical 00 AM Health Lotion EST Care) [Aspercreme ] Aspercreme 10 % Amoxicillin Amoxic 05/27/ 1.0 suspend Amoxic illin- eCW3 875 MG / illin- 2018 {tabl ed Pot ([facility] Clavulanate Pot 12:00: et} Clavulanate [facility] 125 MG Oral Clavul 00 AM 875-125 MG Health Tablet anate EST Care) Amoxicillin 875-12 -Pot 5 MG Clavulanate 875-125 MG Amoxicillin Amoxic .0 suspend Amoxic illin- eCW3 875 MG / illin- 2019 {tabl ed Pot ([facility] Clavulanate Pot 12:00: et} Clavulanate [facility] 125 MG Oral Clavul 00 AM 875-125 MG Health Tablet anate EST Care) Amoxicillin 875-12 -Pot 5 MG Clavulanate 875-125 MG Amoxicillin Amoxic .0 suspend Amoxic illin- eCW3 875 MG / illin- 2019 {tabl ed Pot ([facility] Clavulanate Pot 12:00: et} Clavulanate [facility] 125 MG Oral Clavul 00 AM 875-125 MG Health Tablet anate EST Care) Amoxicillin 875-12 -Pot 5 MG Clavulanate 875-125 MG Amoxicillin Amoxic .0 suspend Amoxic illin- eCW3 875 MG / illin- 2018 {tabl ed Pot ([facility] Clavulanate Pot 12:00: et} Clavulanate [facility] 125 MG Oral Clavul 00 AM 875-125 MG Health Tablet anate EST Care) Amoxicillin 875-12 -Pot 5 MG Clavulanate 875-125 MG Amoxicillin Amoxic .0 active Amoxici llin- eCW3 875 MG / illin- 2018 {tabl Pot ([facility] Clavulanate Pot 12:00: et} Clavulanate [facility] 125 MG Oral Clavul 00 AM 875-125 MG Health Tablet anate EST Care) Amoxicillin 875-12 -Pot 5 MG Clavulanate 875-125 MG Amoxicillin Amoxic .0 suspend Amoxic illin- eCW3 875 MG / illin- 2019 {tabl ed Pot ([facility] Clavulanate Pot 12:00: et} Clavulanate [facility] 125 MG Oral Clavul 00 AM 875-125 MG Health Tablet anate EST Care) Amoxicillin 875-12 -Pot 5 MG Clavulanate 875-125 MG 12 HR Mucine .0 active Mucinex 600 e CW3 Guaifenesin x 600 2018 {tabl MG ([facility] 600 MG MG 12:00: et_as [facility] Extended 00 AM _need Health Release EST ed} Care) Oral Tablet [Mucinex] Mucinex 600 MG Amoxicillin Amoxic .0 suspend Amoxic illin- eCW3 875 MG / illin- 2018 {tabl ed Pot ([facility] Clavulanate Pot 12:00: et} Clavulanate [facility] 125 MG Oral Clavul 00 AM 875-125 MG Health Tablet anate EST Care) Amoxicillin 875-12 -Pot 5 MG Clavulanate 875-125 MG Amoxicillin Amoxic .0 suspend Amoxic illin- eCW3 875 MG / illin- 2018 {tabl ed Pot ([facility] Clavulanate Pot 12:00: et} Clavulanate [facility] 125 MG Oral Clavul 00 AM 875-125 MG Health Tablet anate EST Care) Amoxicillin 875-12 -Pot 5 MG Clavulanate 875-125 MG Hydrocortis Neomyc .0 suspend Neomyc in-[place] eCW3 one inEsau 2018 {drop ed ymyxin-HC ([facility] MG/ML / ymyxin 12:00: s_int 3.5-64720-2 [facility] Neomycin -HC 00 AM o_aff Health 3.5 MG/ML / 3.5-10 EDT ected Care) Polymyxin B 000-1 _ear} 78328 UNT/ML Otic Solution Neomycin-Po lymyxin-HC 3.5-61744-9 Hydrocortis Neomyc .0 suspend Neomyc in-[place] eCW3 one in2018 {drop ed ymyxin-HC ([facility] MG/ML / ymyxin 12:00: s_int 3.5-40075-6 [facility] Neomycin -HC 00 AM o_aff Health 3.5 MG/ML / 3.5-10 EDT ected Care) Polymyxin B 000-1 _ear} 75832 UNT/ML Otic Solution Neomycin-Po lymyxin-HC 3.5-25701-0 Hydrocortis Neomyc 4.0 suspend Neomyc in-[place] eCW3 one 2018 {drop ed ymyxin-HC ([facility] MG/ML / ymyxin 12:00: s_int 3.5-78700-7 [facility] Neomycin -HC 00 AM o_aff Health 3.5 MG/ML / 3.5-10 EDT ected Care) Polymyxin B 000-1 _ear} 45440 UNT/ML Otic Solution Neomycin-Po lymyxin-HC 3.5-58999-4 Hydrocortis Neomyc 4.0 suspend Neomyc in-[place] eCW3 one in2018 {drop ed ymyxin-HC ([facility] MG/ML / ymyxin 12:00: s_int 3.5-18390-5 [facility] Neomycin -HC 00 AM o_aff Health 3.5 MG/ML / 3.5-10 EDT ected Care) Polymyxin B 000-1 _ear} 79462 UNT/ML Otic Solution Neomycin-Po lymyxin-HC 3.5-64063-8 Hydrocortis Neomyc .0 suspend Neomyc in-[place] eCW3 one 2018 {drop ed ymyxin-HC ([facility] MG/ML / ymyxin 12:00: s_int 3.5-53384-7 [facility] Neomycin -HC 00 AM o_aff Health 3.5 MG/ML / 3.5-10 EDT ected Care) Polymyxin B 000-1 _ear} 17608 UNT/ML Otic Solution Neomycin-Po lymyxin-HC 3.5-02294-2 Hydrocortis Neomyc 4.0 suspend Neomyc in-[place] eCW3 one in2018 {drop ed ymyxin-HC ([facility] MG/ML / ymyxin 12:00: s_int 3.5-55848-9 [facility] Neomycin -HC 00 AM o_aff Health 3.5 MG/ML / 3.5-10 EDT ected Care) Polymyxin B 000-1 _ear} 45110 UNT/ML Otic Solution Neomycin-Po lymyxin-HC 3.5-44287-6 Hydrocortis Neomyc 4.0 suspend Neomyc in-[place] eCW3 one in2018 {drop ed ymyxin-HC ([facility] MG/ML / ymyxin 12:00: s_int 3.5-79979-5 [facility] Neomycin -HC 00 AM o_aff Health 3.5 MG/ML / 3.5-10 EDT ected Care) Polymyxin B 000-1 _ear} 38180 UNT/ML Otic Solution Neomycin-Po lymyxin-HC 3.5-20669-6 Hydrocortis Neomyc 02/25/ 4.0 suspend Neomyc in-[place] eCW3 one 10 in-[place] 2019 {drop ed ymyxin-HC ([facility] MG/ML / ymyxin 12:00: s_int 3.5-15224-3 [facility] Neomycin -HC 00 AM o_aff Health 3.5 MG/ML / 3.5-10 EDT ected Care) Polymyxin B 000-1 _ear} 13568 UNT/ML Otic Solution Neomycin-Po lymyxin-HC 3.5-58583-3 Cyclobenzap Cyclob .0 active Cyclobe nzapr eCW3 rine enzapr 2019 {tabl ine HCl 10 ([facility] hydrochlori ine 12:00: et_as MG [facility] de 10 MG HCl 10 00 AM _need Health Oral Tablet MG EDT ed} Care) Cyclobenzap rine HCl 10 MG Doxycycline Doxycy .0 active Doxycyc line eCW3 Monohydrate mendieta 2018 {caps Monohydrate ([facility] 100 MG Oral Monohy 12:00: ule} 100 MG Ri lizzette Capsule drate 00 AM Health 100 MG EDT Care) Ondansetron Zofran .0 suspend Zofran 4 MG eCW3 4 MG Oral 4 MG 2019 {tabl ed ([facility] Tablet 12:00: et} [facility] [Zofran] 00 AM Health Zofran 4 MG EDT Care) Ondansetron Zofran .0 suspend Zofran 4 MG eCW3 4 MG Oral 4 MG 2019 {tabl ed ([facility] Tablet 12:00: et} [facility] [Zofran] 00 AM Health Zofran 4 MG EDT Care) Triamcinolo Triamc .0 suspend Triamc inolon eCW3 ne inolon 2018 {appl ed e Acetonide ([facility] Acetonide 5 e 12:00: icati 0.5 % [facility] MG/ML Aceton 00 AM on_to Health Topical kallie EDT _affe Care) Cream 0.5 % cted_ Triamcinolo area} ne Acetonide 0.5 % Ondansetron Zofran .0 suspend Zofran 4 MG eCW3 4 MG Oral 4 MG 2019 {tabl ed ([facility] Tablet 12:00: et} [facility] [Zofran] 00 AM Health Zofran 4 MG EDT Care) Triamcinolo Triamc .0 suspend Triamc inolon eCW3 ne inolon 2018 {appl ed e Acetonide ([facility] Acetonide 5 e 12:00: icati 0.5 % [facility] MG/ML Aceton 00 AM on_to Health Topical kallie EDT _affe Care) Cream 0.5 % cted_ Triamcinolo area} ne Acetonide 0.5 % Ondansetron Zofran .0 suspend Zofran 4 MG eCW3 4 MG Oral 4 MG 2019 {tabl ed ([facility] Tablet 12:00: et} [facility] [Zofran] 00 AM Health Zofran 4 MG EDT Care) Ondansetron Zofran .0 suspend Zofran 4 MG eCW3 4 MG Oral 4 MG 2019 {tabl ed ([facility] Tablet 12:00: et} [facility] [Zofran] 00 AM Health Zofran 4 MG EDT Care) Ondansetron Zofran .0 suspend Zofran 4 MG eCW3 4 MG Oral 4 MG 2019 {tabl ed ([facility] Tablet 12:00: et} [facility] [Zofran] 00 AM Health Zofran 4 MG EDT Care) Triamcinolo Triamc .0 suspend Triamc inolon eCW3 ne inolon 2018 {appl ed e Acetonide ([facility] Acetonide 5 e 12:00: icati 0.5 % [facility] MG/ML Aceton 00 AM on_to Health Topical k[place]ie EDT _affe Care) Cream 0.5 % cted_ Triamcinolo area} ne Acetonide 0.5 % Triamcinolo Triamc 07/26/ 1.0 suspend Triamc inolon eCW3 ne inolon 2018 {appl ed e Acetonide ([facility] Acetonide 5 e 12:00: icati 0.5 % [facility] MG/ML Aceton 00 AM on_to Health Topical k[place]ie EDT _affe Care) Cream 0.5 % cted_ Triamcinolo area} ne Acetonide 0.5 % Triamcinolo Triamc .0 suspend Triamc inolon eCW3 ne inolon 2018 {appl ed e Acetonide ([facility] Acetonide 5 e 12:00: icati 0.5 % R[facility] r MG/ML Aceton 00 AM on_to Health Topical k[place]ie EDT _affe Care) Cream 0.5 % cted_ Triamcinolo area} ne Acetonide 0.5 % Triamcinolo Triamc .0 suspend Triamc inolon eCW3 ne inolon 2018 {appl ed e Acetonide ([facility] Acetonide 5 e 12:00: icati 0.5 % Rive r MG/ML Aceton 00 AM on_to Health Topical k[place]ie EDT _affe Care) Cream 0.5 % cted_ Triamcinolo area} ne Acetonide 0.5 % Triamcinolo Triamc .0 suspend Triamc inolon eCW3 ne inolon 2018 {appl ed e Acetonide ([facility] Acetonide 5 e 12:00: icati 0.5 % Rive r MG/ML Aceton 00 AM on_to Health Topical k[place]ie EDT _affe Care) Cream 0.5 % cted_ Triamcinolo area} ne Acetonide 0.5 % Ondansetron Zofran .0 suspend Zofran 4 MG eCW3 4 MG Oral 4 MG 2018 {tabl ed ([facility] Tablet 12:00: et} [facility] [Zofran] 00 AM Health Zofran 4 MG EDT Care) Triamcinolo Triamc .0 suspend Triamc inolon eCW3 ne inolon 2018 {appl ed e Acetonide ([facility] Acetonide 5 e 12:00: icati 0.5 % Rive r MG/ML Aceton 00 AM on_to Health Topical k[place]ie EDT _affe Care) Cream 0.5 % cted_ Triamcinolo area} ne Acetonide 0.5 % Ondansetron Zofran 1.0 active Zofran 4 MG eCW3 4 MG Oral 4 MG 2019 {tabl ([facility] Tablet 12:00: et} [facility] [Zofran] 00 AM Health Zofran 4 MG EDT Care) Triamcinolo Triamc .0 active Triamci nolon eCW3 ne inolon 2018 {appl e Acetonide ([facility] Acetonide 5 e 12:00: icati 0.5 % Rive [facility] MG/ML Aceton 00 AM on_to Health Topical k[place]ie EDT _affe Care) Cream 0.5 % cted_ Triamcinolo area} ne Acetonide 0.5 % Ondansetron Zofran .0 suspend Zofran 4 MG eCW3 4 MG Oral 4 MG 2019 {tabl ed ([facility] Tablet 12:00: et} [facility] [Zofran] 00 AM Health Zofran 4 MG EDT Care) B & B Rigid B & B 11/26/ suspend B & B R igid eCW3 Wrist Brace Rigid 2019 ed Wrist Brace ([facility] - Wrist 12:00: - [facility] Brace 00 AM Health - EDT Care) B & B Rigid B & B 11/26/ suspend B & B R igid eCW3 Wrist Brace Rigid 2019 ed Wrist Brace ([facility] - Wrist 12:00: - [facility] Brace 00 AM Health - EDT Care) B & B Rigid B & B 11/26/ suspend B & B R igid eCW3 Wrist Brace Rigid 2019 ed Wrist Brace ([facility] - Wrist 12:00: - [facility] Brace 00 AM Health - EDT Care) B & B Rigid B & B 11/26/ suspend B & B R igid eCW3 Wrist Brace Rigid 2019 ed Wrist Brace ([facility] - Wrist 12:00: - [facility] Brace 00 AM Health - EDT Care) B & B Rigid B & B 11/26/ suspend B & B R igid eCW3 Wrist Brace Rigid 2019 ed Wrist Brace ([facility] - Wrist 12:00: - [facility] Brace 00 AM Health - EDT Care) B & B Rigid B & B 11/26/ suspend B & B R igid eCW3 Wrist Brace Rigid 2019 ed Wrist Brace ([facility] - Wrist 12:00: - [facility] Brace 00 AM Health - EDT Care) B & B Rigid B & B 11/26/ suspend B & B R igid eCW3 Wrist Brace Rigid 2019 ed Wrist Brace ([facility] - Wrist 12:00: - [facility] Brace 00 AM Health - EDT Care) B & B Rigid B & B 11/26/ suspend B & B R igid eCW3 Wrist Brace Rigid 2019 ed Wrist Brace ([facility] - Wrist 12:00: - [facility] Brace 00 AM Health - EDT Care) B & B Rigid B & B 11/26/ suspend B & B R igid eCW3 Wrist Brace Rigid 2019 ed Wrist Brace ([facility] - Wrist 12:00: - [facility] Brace 00 AM Health - EDT Care) Knee Brace Knee 11/14/ suspend Knee Brac e - eCW3 - Brace 2019 ed ([facility] - 12:00: [facility] 00 AM Health EDT Care) Knee Brace Knee 11/14/ suspend Knee Brac e - eCW3 - Brace 2019 ed ([facility] - 12:00: [facility] 00 AM Health EDT Care) Knee Brace Knee 11/14/ suspend Knee Brac e - eCW3 - Brace 2019 ed ([facility] - 12:00: [facility] 00 AM Health EDT Care) Knee Brace Knee 11/14/ suspend Knee Brac e - eCW3 - Brace 2019 ed ([facility] - 12:00: [facility] 00 AM Health EDT Care) Knee Brace Knee 11/14/ suspend Knee Brac e - eCW3 - Brace 2019 ed ([facility] - 12:00: [facility] 00 AM Health EDT Care) Knee Brace Knee 11/14/ suspend Knee Brac e - eCW3 - Brace 2019 ed ([facility] - 12:00: [facility] 00 AM Health EDT Care) Knee Brace Knee 11/14/ suspend Knee Brac e - eCW3 - Brace 2019 ed ([facility] - 12:00: [facility] 00 AM Health EDT Care) Knee Brace Knee 11/14/ suspend Knee Brac e - eCW3 - Brace 2019 ed ([facility] - 12:00: [facility] 00 AM Health EDT Care) Knee Brace Knee suspend Knee Brac e - eCW3 - Brace 2019 ed ([facility] - 12:00: [facility] 00 AM Health EDT Care) Loratadine Clarit 1.0 suspend Clariti n 10 eCW3 10 MG Oral in 2018 {tabl ed MG ([facility] Tablet MG 12:00: et} [facility] [Claritin] 00 AM Health Claritin 10 EDT Care) MG Zofran 4 UNK 5.0 active Zofran 4 eCW 3 MG/5ML 2018 {ml} MG/5ML ([facility] 12:00: [facility] 00 AM Health EDT Care) Loratadine Clarit .0 suspend Clariti n 10 eCW3 10 MG Oral in 2018 {tabl ed MG ([facility] Tablet MG 12:00: et} [facility] [Claritin] 00 AM Health Claritin EDT Care) MG Zofran 4 UNK 5.0 suspend Zofran 4 eC W3 MG/5ML 2018 {ml} ed MG/5ML ([facility] 12:00: [facility] 00 AM Health EDT Care) Zofran 4 UNK 5.0 suspend Zofran 4 eC W3 MG/5ML 2018 {ml} ed MG/5ML ([facility] 12:00: [facility] 00 AM Health EDT Care) Loratadine Clarit 1.0 active Claritin 10 eCW3 10 MG Oral in 2018 {tabl MG ([facility] Tablet MG 12:00: et} [facility] [Claritin] 00 AM Health Claritin 10 EDT Care) MG Loratadine Clarit 1.0 suspend Clariti n 10 eCW3 10 MG Oral in 2018 {tabl ed MG ([facility] Tablet MG 12:00: et} [facility] [Claritin] 00 AM Health Claritin 10 EDT Care) MG Zofran 4 UNK 5.0 suspend Zofran 4 eC W3 MG/5ML 2019 {ml} ed MG/5ML ([facility] 12:00: [facility] 00 AM Health EDT Care) Zofran 4 UNK .0 suspend Zofran 4 eC W3 MG/5ML 2019 {ml} ed MG/5ML ([facility] 12:00: [facility] 00 AM Health EDT Care) Zofran 4 UNK 5.0 suspend Zofran 4 eC W3 MG/5ML 2019 {ml} ed MG/5ML ([facility] 12:00: [facility] 00 AM Health EDT Care) Loratadine Clarit .0 suspend Clariti n 10 eCW3 10 MG Oral in 2018 {tabl ed MG ([facility] Tablet MG 12:00: et} [facility] [Claritin] 00 AM Health Claritin 10 EDT Care) MG Zofran 4 UNK .0 suspend Zofran 4 eC W3 MG/5ML 2018 {ml} ed MG/5ML ([facility] 12:00: [facility] 00 AM Health EDT Care) Zofran 4 UNK .0 suspend Zofran 4 eC W3 MG/5ML 2018 {ml} ed MG/5ML ([facility] 12:00: [facility] 00 AM Health EDT Care) Loratadine Clarit .0 suspend Clariti n 10 eCW3 10 MG Oral in 2018 {tabl ed MG ([facility] Tablet MG 12:00: et} [facility] [Claritin] 00 AM Health Claritin 10 EDT Care) MG Zofran 4 UNK .0 suspend Zofran 4 eC W3 MG/5ML 2018 {ml} ed MG/5ML ([facility] 12:00: [facility] 00 AM Health EDT Care) Loratadine Clarit .0 suspend Clariti n 10 eCW3 10 MG Oral in 2018 {tabl ed MG ([facility] Tablet MG 12:00: et} [facility] [Claritin] 00 AM Health Claritin 10 EDT Care) MG Loratadine Clarit .0 suspend Clariti n 10 eCW3 10 MG Oral in 2018 {tabl ed MG ([facility] Tablet MG 12:00: et} [facility] [Claritin] 00 AM Health Claritin 10 EDT Care) MG Loratadine Clarit 05/09/ 1.0 suspend Clariti n 10 eCW3 10 MG Oral in 2018 {tabl ed MG ([facility] Tablet MG 12:00: et} [facility] [Claritin] 00 AM Health Claritin 10 EDT Care) MG Nebulizer - Nebuli 04/25/ suspend Nebuli zer - eCW3 zer - 2018 ed ([facility] 12:00: [facility] 00 AM Health EDT Care) Nebulizer - Nebuli 04/25/ suspend Nebuli zer - eCW3 zer - 2018 ed ([facility] 12:00: [facility] 00 AM Health EDT Care) Nebulizer - Nebuli 04/25/ suspend Nebuli zer - eCW3 zer - 2018 ed ([facility] 12:00: [facility] 00 AM Health EDT Care) Nebulizer - Nebuli 04/25/ suspend Nebuli zer - eCW3 zer - 2018 ed ([facility] 12:00: [facility] 00 AM Health EDT Care) Nebulizer - Nebuli 04/25/ suspend Nebuli zer - eCW3 zer - 2018 ed ([facility] 12:00: [facility] 00 AM Health EDT Care) Nebulizer - Nebuli 04/25/ suspend Nebuli zer - eCW3 zer - 2018 ed ([facility] 12:00: [facility] 00 AM Health EDT Care) Nebulizer - Nebuli 04/25/ suspend Nebuli zer - eCW3 zer - 2018 ed ([facility] 12:00: [facility] 00 AM Health EDT Care) Nebulizer - Nebuli 04/25/ suspend Nebuli zer - eCW3 zer - 2018 ed ([facility] 12:00: [facility] 00 AM Health EDT Care) Nebulizer - Nebuli 04/25/ suspend Nebuli zer - eCW3 zer - 2018 ed ([facility] 12:00: [facility] 00 AM Health EDT Care) 1 ML Ketoro 10/15/ 2.0 suspend Ketorolac eCW 3 Ketorolac lac 2019 {ml} ed Tromethamine ([facility] Tromethamin Tromet 12:00: 30 MG/ML [facility] e 30 MG/ML hamine 00 AM Health Injection 30 EDT Care) MG/ML 1 ML Ketoro 10/15/ 2.0 suspend Ketorolac eCW 3 Ketorolac [place] 2018 {ml} ed Tromethamine ([facility] Tromethamin Tromet 12:00: 30 MG/ML [facility] e 30 MG/ML hamine 00 AM Health Injection 30 EDT Care) MG/ML 1 ML Ketoro 2.0 suspend Ketorolac eCW 3 Ketorolac [place] 2018 {ml} ed Tromethamine ([facility] Tromethamin Tromet 12:00: 30 MG/ML [facility] e 30 MG/ML hamine 00 AM Health Injection 30 EDT Care) MG/ML 1 ML Ketoro 2.0 suspend Ketorolac eCW 3 Ketorolac [place] 2018 {ml} ed Tromethamine ([facility] Tromethamin Tromet 12:00: 30 MG/ML [facility] e 30 MG/ML hamine 00 AM Health Injection 30 EDT Care) MG/ML 1 ML Ketoro 2.0 suspend Ketorolac eCW 3 Ketorolac [place] 2018 {ml} ed Tromethamine ([facility] Tromethamin Tromet 12:00: 30 MG/ML [facility] e 30 MG/ML hamine 00 AM Health Injection 30 EDT Care) MG/ML 1 ML Ketoro 2.0 suspend Ketorolac eCW 3 Ketorolac [place] 2018 {ml} ed Tromethamine ([facility] Tromethamin Tromet 12:00: 30 MG/ML [facility] e 30 MG/ML hamine 00 AM Health Injection 30 EDT Care) MG/ML 1 ML Ketoro 2.0 suspend Ketorolac eCW 3 Ketorolac [place] 2018 {ml} ed Tromethamine ([facility] Tromethamin Tromet 12:00: 30 MG/ML [facility] e 30 MG/ML hamine 00 AM Health Injection 30 EDT Care) MG/ML 1 ML Ketoro 2.0 suspend Ketorolac eCW 3 Ketorolac [place] 2018 {ml} ed Tromethamine ([facility] Tromethamin Tromet 12:00: 30 MG/ML [facility] e 30 MG/ML hamine 00 AM Health Injection 30 EDT Care) MG/ML 1 ML Ketoro 2.0 suspend Ketorolac eCW 3 Ketorolac [place] 2018 {ml} ed Tromethamine ([facility] Tromethamin Tromet 12:00: 30 MG/ML [facility] e 30 MG/ML hamine 00 AM Health Injection 30 EDT Care) MG/ML Fluticasone Flutic .0 active Flutica sone eCW3 Propionate asone 2018 {spra Propionate ( [facility] 50 MCG/ACT Propio 12:00: y_in_ 50 MCG/AC T [facility] lucero 00 AM each_ Health 50 EDT nostr Care) MCG/AC il} T Fluticasone Flutic .0 suspend Flutic asone eCW3 Propionate asone 2018 {spra ed Propionate ( [facility] 50 MCG/ACT Propio 12:00: y_in_ 50 MCG/AC T [facility] [place] 00 AM each_ Health 50 EDT nostr Care) MCG/AC il} T Fluticasone Flutic .0 suspend Flutic asone eCW3 Propionate asone 2018 {spra ed Propionate ( [facility] 50 MCG/ACT Propio 12:00: y_in_ 50 MCG/AC T [facility] [place] 00 AM each_ Health 50 EDT nostr Care) MCG/AC il} T Fluticasone Flutic .0 suspend Flutic asone eCW3 Propionate asone 2018 {spra ed Propionate ( [facility] 50 MCG/ACT Propio 12:00: y_in_ 50 MCG/AC T [facility] [place] 00 AM each_ Health 50 EDT nostr Care) MCG/AC il} T Fluticasone Flutic .0 suspend Flutic asone eCW3 Propionate asone 2018 {spra ed Propionate ( [facility] 50 MCG/ACT Propio 12:00: y_in_ 50 MCG/AC T [facility] [place] 00 AM each_ Health 50 EDT nostr Care) MCG/AC il} T Fluticasone Flutic .0 suspend Flutic asone eCW3 Propionate asone 2018 {spra ed Propionate ( [facility] 50 MCG/ACT Propio 12:00: y_in_ 50 MCG/AC T [facility] [place] 00 AM each_ Health 50 EDT nostr Care) MCG/AC il} T Fluticasone Flutic .0 suspend Flutic asone eCW3 Propionate asone 2019 {spra ed Propionate ( [facility] 50 MCG/ACT Propio 12:00: y_in_ 50 MCG/AC T [facility] [place] 00 AM each_ Health 50 EDT nostr Care) MCG/AC il} T Fluticasone Flutic .0 suspend Flutic asone eCW3 Propionate asone 2018 {spra ed Propionate ( [facility] 50 MCG/ACT Propio 12:00: y_in_ 50 MCG/AC T [facility] [place] 00 AM each_ Health 50 EDT nostr Care) MCG/AC il} T Fluticasone Flutic .0 suspend Flutic asone eCW3 Propionate asone 2018 {spra ed Propionate ( [facility] 50 MCG/ACT Propio 12:00: y_in_ 50 MCG/AC T [facility] [place] 00 AM each_ Health 50 EDT nostr Care) MCG/AC il} T Propranolol Propra .0 active Propran olol eCW3 Hydrochlori nolol 2017 {tabl HCl 80 MG ( [facility] de 80 MG HCl 80 12:00: et_on [facility] Oral Tablet MG 00 AM _an_e Health Propranolol EDT mpty_ Care) HCl 80 MG stoma ch} Sumatriptan Imitre .0 suspend Imitre x 100 eCW3 100 MG Oral x 100 2017 {tabl ed MG ([facility] Tablet MG 12:00: et_as [facility] [Imitrex] 00 AM _need Health Imitrex 100 EDT ed} Care) MG Ascorbic Vitami .0 suspend Vitamin C eCW3 Acid 500 MG n C 2017 {tabl ed 500 MG ([facility] Oral Tablet 500 MG 12:00: et} [facility] r Vitamin C 00 AM Health 500 MG EDT Care) Ranitidine Raniti .0 suspend Ranitid ine eCW3 300 MG Oral dine 2017 {tabl ed HCl 300 MG ( [facility] Tablet HCl 12:00: et} [facility] Ranitidine 300 MG 00 AM Health HCl 300 MG EDT Care) Ascorbic Vitami .0 suspend Vitamin C eCW3 Acid 500 MG n C 2017 {tabl ed 500 MG ([facility] Oral Tablet 500 MG 12:00: et} [facility] Vitamin C 00 AM Health 500 MG EDT Care) Ondansetron Zofran .0 suspend Zofran 8 MG eCW3 8 MG Oral 8 MG 2018 {tabl ed ([facility] Tablet 12:00: et} [facility] [Zofran] 00 AM Health Zofran 8 MG EDT Care) Ondansetron Zofran .0 suspend Zofran 8 MG eCW3 8 MG Oral 8 MG 2018 {tabl ed ([facility] Tablet 12:00: et} [facility] [Zofran] 00 AM Health Zofran 8 MG EDT Care) Ondansetron Zofran .0 suspend Zofran 8 MG eCW3 8 MG Oral 8 MG 2018 {tabl ed ([facility] Tablet 12:00: et} [facility] [Zofran] 00 AM Health Zofran 8 MG EDT Care) montelukast Singul .0 suspend Singul air 10 eCW3 10 MG Oral air 10 2017 {tabl ed MG ([facility] [facility] Tablet MG 12:00: et} [facility] [Singulair] 00 AM Health Singulair EDT Care) 10 MG Ranitidine Raniti .0 suspend Ranitid ine eCW3 300 MG Oral dine 2018 {tabl ed HCl 300 MG ( [facility] Tablet HCl 12:00: et} [facility] Ranitidine 300 MG 00 AM Health HCl 300 MG EDT Care) Ranitidine Raniti .0 suspend Ranitid ine eCW3 300 MG Oral dine 2018 {tabl ed HCl 300 MG ( [facility] Tablet HCl 12:00: et} [facility] Ranitidine 300 MG 00 AM Health HCl 300 MG EDT Care) Sumatriptan Imitre .0 suspend Imitre x 100 eCW3 100 MG Oral x 100 2017 {tabl ed MG ([facility] [facility] Tablet MG 12:00: et_as [facility] [Imitrex] 00 AM _need Health Imitrex 100 EDT ed} Care) MG montelukast Singul .0 suspend Singul air 10 eCW3 10 MG Oral air 10 2017 {tabl ed MG ([facility] [facility] Tablet MG 12:00: et} [facility] [Singulair] 00 AM Health Singulair EDT Care) 10 MG Propranolol Propra .0 active Propran olol eCW3 Hydrochlori nolol 2018 {tabl HCl 80 MG ( [facility] de 80 MG HCl 80 12:00: et_on [facility] Oral Tablet MG 00 AM _an_e Health Propranolol EDT mpty_ Care) HCl 80 MG stoma ch} Ascorbic Vitami .0 suspend Vitamin C eCW3 Acid 500 MG n C 2018 {tabl ed 500 MG ([facility] Oral Tablet 500 MG 12:00: et} [facility] Vitamin C 00 AM Health 500 MG EDT Care) Ondansetron Zofran .0 suspend Zofran 8 MG eCW3 8 MG Oral 8 MG 2018 {tabl ed ([facility] Tablet 12:00: et} [facility] [Zofran] 00 AM Health Zofran 8 MG EDT Care) Ascorbic Vitami 0 suspend Vitamin C eCW3 Acid 500 MG n C 2018 {tabl ed 500 MG ([facility] Oral Tablet 500 MG 12:00: et} [facility] Vitamin C 00 AM Health 500 MG EDT Care) Propranolol Propra .0 active Propran olol eCW3 Hydrochlori nolol 2018 {tabl HCl 80 MG ( [facility] de 80 MG HCl 80 12:00: et_on [facility] Oral Tablet MG 00 AM _an_e Health Propranolol EDT mpty_ Care) HCl 80 MG stoma ch} Ondansetron Zofran .0 suspend Zofran 8 MG eCW3 8 MG Oral 8 MG 2018 {tabl ed ([facility] Tablet 12:00: et} [facility] [Zofran] 00 AM Health Zofran 8 MG EDT Care) Ranitidine Raniti .0 active Ranitidi ne eCW3 300 MG Oral dine 2018 {tabl HCl 300 MG ( [place] Tablet HCl 12:00: et} [facility] Ranitidine 300 MG 00 AM Health HCl 300 MG EDT Care) Propranolol Propra .0 suspend Propra nolol eCW3 Hydrochlori nolol 2018 {tabl ed HCl 80 MG ( [place] de 80 MG HCl 80 12:00: et_on [place] Oral Tablet MG 00 AM _an_e Health Propranolol EDT mpty_ Care) HCl 80 MG stoma ch} Propranolol Propra .0 active Propran olol eCW3 Hydrochlori nolol 2018 {tabl HCl 80 MG ( [place] de 80 MG HCl 80 12:00: et_on [place] Oral Tablet MG 00 AM _an_e Health Propranolol EDT mpty_ Care) HCl 80 MG stoma ch} Ranitidine Raniti .0 suspend Ranitid ine eCW3 300 MG Oral dine 2018 {tabl ed HCl 300 MG ( [place] Tablet HCl 12:00: et} [facility] Ranitidine 300 MG 00 AM Health HCl 300 MG EDT Care) montelukast Singul .0 suspend Singul air 10 eCW3 10 MG Oral air 10 2017 {tabl ed MG ([place] Tablet MG 12:00: et} [facility] [Singulair] 00 AM Health Singulair EDT Care) 10 MG montelukast Singul .0 suspend Singul air 10 eCW3 10 MG Oral air 10 2017 {tabl ed MG ([place] Tablet MG 12:00: et} [place] [Singulair] 00 AM Health Singulair EDT Care) 10 MG Sumatriptan Imitre .0 suspend Imitre x 100 eCW3 100 MG Oral x 100 2017 {tabl ed MG ([place] Tablet MG 12:00: et_as [place] [Imitrex] 00 AM _need Health Imitrex 100 EDT ed} Care) MG montelukast Singul .0 suspend Singul air 10 eCW3 10 MG Oral air 10 2017 {tabl ed MG ([place] Tablet MG 12:00: et} [place] [Singulair] 00 AM Health Singulair EDT Care) 10 MG Ascorbic Vitami .0 suspend Vitamin C eCW3 Acid 500 MG n C 2018 {tabl ed 500 MG ([place] Oral Tablet 500 MG 12:00: et} [facility] r Vitamin C 00 AM Health 500 MG EDT Care) Ranitidine Raniti .0 suspend Ranitid ine eCW3 300 MG Oral dine 2017 {tabl ed HCl 300 MG ( [place] Tablet HCl 12:00: et} [facility] Ranitidine 300 MG 00 AM Health HCl 300 MG EDT Care) Propranolol Propra .0 active Propran olol eCW3 Hydrochlori nolol 2018 {tabl HCl 80 MG ( [place] de 80 MG HCl 80 12:00: et_on [place] Oral Tablet MG 00 AM _an_e Health Propranolol EDT mpty_ Care) HCl 80 MG stoma ch} Propranolol Propra .0 active Propran olol eCW3 Hydrochlori nolol 2018 {tabl HCl 80 MG ( [place] de 80 MG HCl 80 12:00: et_on [place] Oral Tablet MG 00 AM _an_e Health Propranolol EDT mpty_ Care) HCl 80 MG stoma ch} Sumatriptan Imitre .0 suspend Imitre x 100 eCW3 100 MG Oral x 100 2017 {tabl ed MG ([place] Tablet MG 12:00: et_as [place] [Imitrex] 00 AM _need Health Imitrex 100 EDT ed} Care) MG montelukast Singul .0 suspend Singul air 10 eCW3 10 MG Oral air 10 2017 {tabl ed MG ([facility] Tablet MG 12:00: et} [place] [Singulair] 00 AM Health Singulair EDT Care) 10 MG Ascorbic Vitami .0 suspend Vitamin C eCW3 Acid 500 MG n C 2017 {tabl ed 500 MG ([facility] Oral Tablet 500 MG 12:00: et} [facility] Vitamin C 00 AM Health 500 MG EDT Care) Propranolol Propra .0 suspend Propra nolol eCW3 Hydrochlori nolol 2018 {tabl ed HCl 80 MG ( [place] de 80 MG HCl 80 12:00: et_on [place] Oral Tablet MG 00 AM _an_e Health Propranolol EDT mpty_ Care) HCl 80 MG stoma ch} Sumatriptan Imitre .0 suspend Imitre x 100 eCW3 100 MG Oral x 100 2017 {tabl ed MG ([facility] Tablet MG 12:00: et_as [place] [Imitrex] 00 AM _need Health Imitrex 100 EDT ed} Care) MG Ranitidine Raniti .0 suspend Ranitid ine eCW3 300 MG Oral dine 2017 {tabl ed HCl 300 MG ( [place] Tablet HCl 12:00: et} [facility] Ranitidine 300 MG 00 AM Health HCl 300 MG EDT Care) montelukast Singul .0 suspend Singul air 10 eCW3 10 MG Oral air 10 2018 {tabl ed MG ([facility] Tablet MG 12:00: et} [place] [Singulair] 00 AM Health Singulair EDT Care) 10 MG Sumatriptan Imitre .0 active Imitrex 100 eCW3 100 MG Oral x 100 2017 {tabl MG ([facility] Tablet MG 12:00: et_as [place] [Imitrex] 00 AM _need Health Imitrex 100 EDT ed} Care) MG Sumatriptan Imitre .0 suspend Imitre x 100 eCW3 100 MG Oral x 100 2017 {tabl ed MG ([facility] Tablet MG 12:00: et_as [place] [Imitrex] 00 AM _need Health Imitrex 100 EDT ed} Care) MG Sumatriptan Imitre .0 suspend Imitre x 100 eCW3 100 MG Oral x 100 2017 {tabl ed MG ([facility] [facility] Tablet MG 12:00: et_as [place] [Imitrex] 00 AM _need Health Imitrex 100 EDT ed} Care) MG Ondansetron Zofran .0 suspend Zofran 8 MG eCW3 8 MG Oral 8 MG 2018 {tabl ed ([place] Tablet 12:00: et} [place] [Zofran] 00 AM Health Zofran 8 MG EDT Care) Ascorbic Vitami .0 suspend Vitamin C eCW3 Acid 500 MG n C 2018 {tabl ed 500 MG ([facility] Oral Tablet 500 MG 12:00: et} [facility] Vitamin C 00 AM Health 500 MG EDT Care) Ranitidine UNK .0 suspend Ranitidin e eCW3 HCl 300 MG 2018 {tabl ed HCl 300 MG ([facility] 12:00: et} [facility] 00 AM Health EDT Care) Propranolol Propra .0 active Propran olol eCW3 Hydrochlori nolol 2018 {tabl HCl 80 MG ( [place] de 80 MG HCl 80 12:00: et_on [place] Oral Tablet MG 00 AM _an_e Health Propranolol EDT mpty_ Care) HCl 80 MG stoma ch} montelukast Singul 0 suspend Singul air 10 eCW3 10 MG Oral air 10 2017 {tabl ed MG ([facility] Tablet MG 12:00: et} [place] [Singulair] 00 AM Health Singulair EDT Care) 10 MG Sumatriptan Imitre 0 suspend Imitre x 100 eCW3 100 MG Oral x 100 2017 {tabl ed MG ([facility] Tablet MG 12:00: et_as [place] [Imitrex] 00 AM _need Health Imitrex 100 EDT ed} Care) MG montelukast Singul 0 suspend Singul air 10 eCW3 10 MG Oral air 10 2017 {tabl ed MG ([facility] Tablet MG 12:00: et} [place] [Singulair] 00 AM Health Singulair EDT Care) 10 MG Ascorbic Vitami 0 suspend Vitamin C eCW3 Acid 500 MG n C 2018 {tabl ed 500 MG ([facility] Oral Tablet 500 MG 12:00: et} [facility] Vitamin C 00 AM Health 500 MG EDT Care) Ondansetron Zofran 0 suspend Zofran 8 MG eCW3 8 MG Oral 8 MG 2018 {tabl ed ([place] Tablet 12:00: et} [place] [Zofran] 00 AM Health Zofran 8 MG EDT Care) Propranolol Propra 0 active Propran olol eCW3 Hydrochlori nolol 2018 {tabl HCl 80 MG ( [place] de 80 MG HCl 80 12:00: et_on [place] Oral Tablet MG 00 AM _an_e Health Propranolol EDT mpty_ Care) HCl 80 MG stoma ch} Ondansetron Zofran .0 suspend Zofran 8 MG eCW3 8 MG Oral 8 MG 2018 {tabl ed ([place] Tablet 12:00: et} [place] [Zofran] 00 AM Health Zofran 8 MG EDT Care) Ondansetron Zofran .0 suspend Zofran 8 MG eCW3 8 MG Oral 8 MG 2018 {tabl ed ([place] Tablet 12:00: et} [place] [Zofran] 00 AM Health Zofran 8 MG EDT Care) Ascorbic Vitami .0 suspend Vitamin C eCW3 Acid 500 MG n C 2017 {tabl ed 500 MG ([facility] Oral Tablet 500 MG 12:00: et} [facility] Vitamin C 00 AM Health 500 MG EDT Care) Ranitidine Raniti .0 suspend Ranitid ine eCW3 300 MG Oral dine 2017 {tabl ed HCl 300 MG ( [place] Tablet HCl 12:00: et} [facility] Ranitidine 300 MG 00 AM Health HCl 300 MG EDT Care) Meclizine Mecliz 1.0 active Meclizine eCW3 Hydrochlori ine 2017 {tabl HCl 25 MG ([facility] de 25 MG HCl 25 12:00: et_as [place] Oral Tablet MG 00 AM _need Health Meclizine EDT ed} Care) HCl 25 MG Nebulizer - Nebuli 01/30/ suspend Nebuli zer - eCW3 zer - 2017 ed ([facility] 12:00: [facility] 00 AM Health EDT Care) Nebulizer - Nebuli 01/30/ suspend Nebuli zer - eCW3 zer - 2018 ed ([facility] 12:00: [facility] 00 AM Health EDT Care) Albuterol [place] 3.0 suspend Albutero l eCW3 0.83 MG/ML rol 2018 {ml_a ed Sulfate (2.5 ([place] Inhalant Sulfat 12:00: s_nee MG/3ML) Will er Solution e (2.5 00 AM ded} 0.083% Health Albuterol MG/3ML EDT Care) Sulfate ) (2.5 0.083% MG/3ML) 0.083% Meclizine Mecliz 1.0 active Meclizine eCW3 Hydrochlori ine 2017 {tabl HCl 25 MG ([facility] de 25 MG HCl 25 12:00: et_as [place] Oral Tablet MG 00 AM _need Health Meclizine EDT ed} Care) HCl 25 MG Albuterol Ipratr 3.0 active Ipratropi um- eCW3 0.833 MG/ML opium- 2018 {ml} Albuterol ( [place] / [place] 12:00: 0.5-2.5 (3) [facility] Ipratropium rol 00 AM MG/3ML Healt h [place] 0.5-2. EDT Care) 0.167 MG/ML 5 (3) Inhalant MG/3ML Solution Ipratropium -Albuterol 0.5-2.5 (3) MG/3ML Nebulizer - Nebuli 01/30/ suspend Nebuli zer - eCW3 zer - 2018 ed ([place] 12:00: [facility] 00 AM Health EDT Care) Albuterol [place] 3.0 suspend Albutero l eCW3 0.83 MG/ML rol 2018 {ml_a ed Sulfate (2.5 ([place] Inhalant Sulfat 12:00: s_nee MG/3ML) Will er Solution e (2.5 00 AM ded} 0.083% Health Albuterol MG/3ML EDT Care) Sulfate ) (2.5 0.083% MG/3ML) 0.083% Albuterol [place] 01/30/ 3.0 suspend Albutero l eCW3 0.83 MG/ML rol 2018 {ml_a ed Sulfate (2.5 ([place] Inhalant Sulfat 12:00: s_nee MG/3ML) Will er Solution e (2.5 00 AM ded} 0.083% Health Albuterol MG/3ML EDT Care) Sulfate ) (2.5 0.083% MG/3ML) 0.083% Albuterol Ipratr 3.0 suspend Ipratrop ium- eCW3 0.833 MG/ML opium- 2018 {ml} ed Albuterol ( [place] / [place] 12:00: 0.5-2.5 (3) [facility] Ipratropium rol 00 AM MG/3ML [facility]alt [facility] [place] 0.5-2. EDT Care) 0.167 MG/ML 5 (3) Inhalant MG/3ML Solution Ipratropium -Albuterol 0.5-2.5 (3) MG/3ML Albuterol [place] 3.0 suspend Albutero l eCW3 0.83 MG/ML rol 2018 {ml_a ed Sulfate (2.5 ([place] Inhalant Sulfat 12:00: s_nee MG/3ML) Will er Solution e (2.5 00 AM ded} 0.083% Health Albuterol MG/3ML EDT Care) Sulfate ) (2.5 0.083% MG/3ML) 0.083% Albuterol Ipratr 3.0 suspend Ipratrop ium- eCW3 0.833 MG/ML opium- 2017 {ml} ed Albuterol ( [place] / [place] 12:00: 0.5-2.5 (3) [facility] Ipratropium rol 00 AM MG/3ML [facility]alt [facility] [place] 0.5-2. EDT Care) 0.167 MG/ML 5 (3) Inhalant MG/3ML Solution Ipratropium -Albuterol 0.5-2.5 (3) MG/3ML Meclizine Mecliz 1.0 active Meclizine eCW3 Hydrochlori ine 2018 {tabl HCl 25 MG ([facility] de 25 MG HCl 25 12:00: et_as [facility] Oral Tablet MG 00 AM _need Health Meclizine EDT ed} Care) HCl 25 MG Nebulizer - Nebuli 01/30/ suspend Nebuli zer - eCW3 zer - 2017 ed ([place] 12:00: [facility] 00 AM Health EDT Care) Meclizine Mecliz 1.0 active Meclizine eCW3 Hydrochlori ine 2017 {tabl HCl 25 MG ([facility] de 25 MG HCl 25 12:00: et_as [facility] Oral Tablet MG 00 AM _need Health Meclizine EDT ed} Care) HCl 25 MG Albuterol Ipratr 3.0 suspend Ipratrop ium- eCW3 0.833 MG/ML opium- 2017 {ml} ed Albuterol ( [place] / [place] 12:00: 0.5-2.5 (3) [facility] Ipratropium rol 00 AM MG/3ML [facility]alt [facility] [place] 0.5-2. EDT Care) 0.167 MG/ML 5 (3) Inhalant MG/3ML Solution Ipratropium -Albuterol 0.5-2.5 (3) MG/3ML Albuterol [place] 01/30/ 3.0 suspend Albutero l eCW3 0.83 MG/ML rol 2018 {ml_a ed Sulfate (2.5 ([place] Inhalant Sulfat 12:00: s_nee MG/3ML) Will er Solution e (2.5 00 AM ded} 0.083% Health Albuterol MG/3ML EDT Care) Sulfate ) (2.5 0.083% MG/3ML) 0.083% Albuterol [place] 01/30/ 3.0 suspend Albutero l eCW3 0.83 MG/ML rol 2018 {ml_a ed Sulfate (2.5 ([place] Inhalant Sulfat 12:00: s_nee MG/3ML) Will er Solution e (2.5 00 AM ded} 0.083% Health Albuterol MG/3ML EDT Care) Sulfate ) (2.5 0.083% MG/3ML) 0.083% Meclizine Mecliz 1.0 active Meclizine eCW3 Hydrochlori ine 2018 {tabl HCl 25 MG ([facility] de 25 MG HCl 25 12:00: et_as [place] Oral Tablet MG 00 AM _need Health Meclizine EDT ed} Care) HCl 25 MG Albuterol Ipratr 01/30/ 3.0 suspend Ipratrop ium- eCW3 0.833 MG/ML opium- 2018 {ml} ed Albuterol ( [place] / [place] 12:00: 0.5-2.5 (3) [facility] Ipratropium rol 00 AM MG/3ML [facility] [place] 0.5-2. EDT Care) 0.167 MG/ML 5 (3) Inhalant MG/3ML Solution Ipratropium -Albuterol 0.5-2.5 (3) MG/3ML Meclizine Mecliz 01/30/ 1.0 active Meclizine eCW3 Hydrochlori ine 2018 {tabl HCl 25 MG ([facility] de 25 MG HCl 25 12:00: et_as [place] Oral Tablet MG 00 AM _need Health Meclizine EDT ed} Care) HCl 25 MG Nebulizer - Nebuli 01/30/ suspend Nebuli zer - eCW3 zer - 2017 ed ([place] 12:00: [facility] 00 AM Health EDT Care) Nebulizer - Nebuli 01/30/ suspend Nebuli zer - eCW3 zer - 2017 ed ([place] 12:00: [facility] 00 AM Health EDT Care) Albuterol [place] 3.0 suspend Albutero l eCW3 0.83 MG/ML rol 2017 {ml_a ed Sulfate (2.5 ([place] Inhalant Sulfat 12:00: s_nee MG/3ML) Will er Solution e (2.5 00 AM ded} 0.083% Health Albuterol MG/3ML EDT Care) Sulfate ) (2.5 0.083% MG/3ML) 0.083% Nebulizer - Nebuli 01/30/ suspend Nebuli zer - eCW3 2017 ed ([place] 12:00: [facility] 00 AM Health EDT Care) Albuterol [place] 3.0 suspend Albutero l eCW3 0.83 MG/ML rol 2017 {ml_a ed Sulfate (2.5 ([place] Inhalant Sulfat 12:00: s_nee MG/3ML) Will er Solution e (2.5 00 AM ded} 0.083% Health Albuterol MG/3ML EDT Care) Sulfate ) (2.5 0.083% MG/3ML) 0.083% Meclizine Mecliz 01/30/ 1.0 active Meclizine eCW3 Hydrochlori ine 2017 {tabl HCl 25 MG ([facility] de 25 MG HCl 25 12:00: et_as [place] Oral Tablet MG 00 AM _need Health Meclizine EDT ed} Care) HCl 25 MG Albuterol Ipratr 3.0 suspend Ipratrop ium- eCW3 0.833 MG/ML opium- 2017 {ml} ed Albuterol ( [place] / [place] 12:00: 0.5-2.5 (3) [facility] Ipratropium rol 00 AM MG/3ML [facility]alt [facility] [place] 0.5-2. EDT Care) 0.167 MG/ML 5 (3) Inhalant MG/3ML Solution Ipratropium -Albuterol 0.5-2.5 (3) MG/3ML Albuterol Ipratr 3.0 suspend Ipratrop ium- eCW3 0.833 MG/ML opium- 2018 {ml} ed Albuterol ( [place] / [place] 12:00: 0.5-2.5 (3) [facility] Ipratropium rol 00 AM MG/3ML [facility]alt [facility] [place] 0.5-2. EDT Care) 0.167 MG/ML 5 (3) Inhalant MG/3ML Solution Ipratropium -Albuterol 0.5-2.5 (3) MG/3ML Albuterol [place] 3.0 suspend Albutero l eCW3 0.83 MG/ML rol 2017 {ml_a ed Sulfate (2.5 ([place] Inhalant Sulfat 12:00: s_nee MG/3ML) Will er Solution e (2.5 00 AM ded} 0.083% Health Albuterol MG/3ML EDT Care) Sulfate ) (2.5 0.083% MG/3ML) 0.083% Meclizine Mecliz 1.0 active Meclizine eCW3 Hydrochlori ine 2017 {tabl HCl 25 MG ([facility] de 25 MG HCl 25 12:00: et_as [place] Oral Tablet MG 00 AM _need Health Meclizine EDT ed} Care) HCl 25 MG Nebulizer - Nebuli 01/30/ suspend Nebuli zer - eCW3 zer - 2017 ed ([place] 12:00: [facility] 00 AM Health EDT Care) Meclizine Mecliz 1.0 active Meclizine eCW3 Hydrochlori ine 2017 {tabl HCl 25 MG ([facility] de 25 MG HCl 25 12:00: et_as [place] Oral Tablet MG 00 AM _need Health Meclizine EDT ed} Care) HCl 25 MG Albuterol Ipratr 3.0 suspend Ipratrop ium- eCW3 0.833 MG/ML opium- 2017 {ml} ed Albuterol ( [place] / [place] 12:00: 0.5-2.5 (3) [facility] Ipratropium rol 00 AM MG/3ML [facility]alt [facility] [place] 0.5-2. EDT Care) 0.167 MG/ML 5 (3) Inhalant MG/3ML Solution Ipratropium -Albuterol 0.5-2.5 (3) MG/3ML Meclizine Mecliz 01/30/ 1.0 active Meclizine eCW3 Hydrochlori ine 2018 {tabl HCl 25 MG ([facility] de 25 MG HCl 25 12:00: et_as [place] Oral Tablet MG 00 AM _need Health Meclizine EDT ed} Care) HCl 25 MG Nebulizer - Nebuli 01/30/ suspend Nebuli zer - eCW3 zer - 2018 ed ([place] 12:00: [facility] 00 AM Health EDT Care) Albuterol Ipratr 01/30/ 3.0 suspend Ipratrop ium- eCW3 0.833 MG/ML opium- 2018 {ml} ed Albuterol ( [place] / [place] 12:00: 0.5-2.5 (3) [facility] Ipratropium rol 00 AM MG/3ML [facility]alt [facility] [place] 0.5-2. EDT Care) 0.167 MG/ML 5 (3) Inhalant MG/3ML Solution Ipratropium -Albuterol 0.5-2.5 (3) MG/3ML Ibuprofen Ibupro 08/18/ active Ibuprofen eCW3 800 MG Oral fen 2018 800 MG ([facility] Tablet 800 MG 12:00: [facility] 00 AM Health EST Care) Ondansetron Ondans .0 suspend Ondans etron eCW3 8 MG Oral etron 2018 {tabl ed HCl 8 MG ([facility] Tablet HCl 8 12:00: et} [place] Ondansetron MG 00 AM Health HCl 8 MG EST Care) Ondansetron Ondans 1.0 suspend Ondans etron eCW3 8 MG Oral etron 2018 {tabl ed HCl 8 MG ([facility] Tablet HCl 8 12:00: et} [place] Ondansetron MG 00 AM Health HCl 8 MG EST Care) Ondansetron Ondans 1.0 suspend Ondans etron eCW3 8 MG Oral etron 2018 {tabl ed HCl 8 MG ([facility] Tablet HCl 8 12:00: et} [place] Ondansetron MG 00 AM Health HCl 8 MG EST Care) Ondansetron Ondans .0 suspend Ondans etron eCW3 8 MG Oral etron 2018 {tabl ed HCl 8 MG ([facility] Tablet HCl 8 12:00: et} [place] Ondansetron MG 00 AM Health HCl 8 MG EST Care) Ibuprofen Ibupro 08/18/ suspend Ibuprofe n eCW3 800 MG Oral fen 2018 ed 800 MG ([place] [facility] Tablet 800 MG 12:00: [facility] 00 AM Health EST Care) Ibuprofen Ibupro 08/18/ active Ibuprofen eCW3 800 MG Oral fen 2018 800 MG ([place] [facility] Tablet 800 MG 12:00: [facility] 00 AM Health EST Care) Ibuprofen Ibupro 08/18/ suspend Ibuprofe n eCW3 800 MG Oral fen 2018 ed 800 MG ([place] [facility] Tablet 800 MG 12:00: [facility] 00 AM Health EST Care) Ondansetron Ondans .0 suspend Ondans etron eCW3 8 MG Oral etron 2018 {tabl ed HCl 8 MG ([facility] Tablet HCl 8 12:00: et} [place] Ondansetron MG 00 AM Health HCl 8 MG EST Care) Ondansetron Ondans .0 suspend Ondans etron eCW3 8 MG Oral etron 2018 {tabl ed HCl 8 MG ([facility] Tablet HCl 8 12:00: et} [place] Ondansetron MG 00 AM Health HCl 8 MG EST Care) Ondansetron Ondans .0 suspend Ondans etron eCW3 8 MG Oral etron 2018 {tabl ed HCl 8 MG ([facility] Tablet HCl 8 12:00: et} [place] Ondansetron MG 00 AM Health HCl 8 MG EST Care) Ondansetron Ondans .0 suspend Ondans etron eCW3 8 MG Oral etron 2018 {tabl ed HCl 8 MG ([facility] Tablet HCl 8 12:00: et} [place] Ondansetron MG 00 AM Health HCl 8 MG EST Care) Ibuprofen Ibupro 08/18/ suspend Ibuprofe n eCW3 800 MG Oral fen 2018 ed 800 MG ([place] [facility] Tablet 800 MG 12:00: [facility] 00 AM Health EST Care) Ibuprofen Ibupro 08/18/ suspend Ibuprofe n eCW3 800 MG Oral fen 2018 ed 800 MG ([place] [facility] Tablet 800 MG 12:00: [facility] 00 AM Health EST Care) Ibuprofen Ibupro 08/18/ active Ibuprofen eCW3 800 MG Oral fen 2018 800 MG ([place] [facility] Tablet 800 MG 12:00: [place] 00 AM Health EST Care) Ondansetron Ondans .0 suspend Ondans etron eCW3 8 MG Oral etron 2018 {tabl ed HCl 8 MG ([facility] Tablet HCl 8 12:00: et} [place] Ondansetron MG 00 AM Health HCl 8 MG EST Care) 21 DAY NuvaRi .0 suspend NuvaRing eC W3 Ethinyl ng 2016 {ring ed 0.12-0.015 ([facility] Estradiol 0.12-0 12:00: } MG/24HR Will er 0.296200 .015 00 AM Health MG/HR / MG/24H EDT Care) Etonogestre R l 0.005 MG/HR Vaginal Ring [NuvaRing] NuvaRing 0.12-0.015 MG/24HR 21 DAY NuvaRi .0 suspend NuvaRing eC W3 Ethinyl ng 2016 {ring ed 0.12-0.015 ([facility] Estradiol 0.12-0 12:00: } MG/24HR Will er 0.681409 .015 00 AM Health MG/HR / MG/24H EDT Care) Etonogestre R l 0.005 MG/HR Vaginal Ring [NuvaRing] NuvaRing 0.12-0.015 MG/24HR 21 DAY NuvaRi .0 suspend NuvaRing eC W3 Ethinyl ng 2016 {ring ed 0.12-0.015 ([facility] Estradiol 0.12-0 12:00: } MG/24HR Will er 0.733080 .015 00 AM Health MG/HR / MG/24H EDT Care) Etonogestre R l 0.005 MG/HR Vaginal Ring [NuvaRing] NuvaRing 0.12-0.015 MG/24HR 21 DAY NuvaRi 1.0 suspend NuvaRing eC W3 Ethinyl ng 2017 {ring ed 0.12-0.015 ([facility] Estradiol 0.12-0 12:00: } MG/24HR Will er 0.827996 .015 00 AM Health MG/HR / MG/24H EDT Care) Etonogestre R l 0.005 MG/HR Vaginal Ring [NuvaRing] NuvaRing 0.12-0.015 MG/24HR 21 DAY NuvaRi 1.0 suspend NuvaRing eC W3 Ethinyl ng 2017 {ring ed 0.12-0.015 ([facility] Estradiol 0.12-0 12:00: } MG/24HR Will er 0.940984 .015 00 AM Health MG/HR / MG/24H EDT Care) Etonogestre R l 0.005 MG/HR Vaginal Ring [NuvaRing] NuvaRing 0.12-0.015 MG/24HR 21 DAY NuvaRi 1.0 active NuvaRing eCW 3 Ethinyl ng 2017 {ring 0.12-0.015 ([facility] Estradiol 0.12-0 12:00: } MG/24HR Will er 0.558725 .015 00 AM Health MG/HR / MG/24H EDT Care) Etonogestre R l 0.005 MG/HR Vaginal Ring [NuvaRing] NuvaRing 0.12-0.015 MG/24HR 21 DAY NuvaRi 1.0 suspend NuvaRing eC W3 Ethinyl ng 2017 {ring ed 0.12-0.015 ([facility] Estradiol 0.12-0 12:00: } MG/24HR Will er 0.325027 .015 00 AM Health MG/HR / MG/24H EDT Care) Etonogestre R l 0.005 MG/HR Vaginal Ring [NuvaRing] NuvaRing 0.12-0.015 MG/24HR 21 DAY NuvaRi 1.0 suspend NuvaRing eC W3 Ethinyl ng 2017 {ring ed 0.12-0.015 ([facility] Estradiol 0.12-0 12:00: } MG/24HR Will er 0.387644 .015 00 AM Health MG/HR / MG/24H EDT Care) Etonogestre R l 0.005 MG/HR Vaginal Ring [NuvaRing] NuvaRing 0.12-0.015 MG/24HR 21 DAY NuvaRi .0 suspend NuvaRing eC W3 Ethinyl ng 2017 {ring ed 0.12-0.015 ([facility] Estradiol 0.12-0 12:00: } MG/24HR Will er 0.767930 .015 00 AM Health MG/HR / MG/24H EDT Care) Etonogestre R l 0.005 MG/HR Vaginal Ring [NuvaRing] NuvaRing 0.12-0.015 MG/24HR LIDEX CREAM UNK .0 suspend LIDEX CR EAM eCW3 .05% 2017 {appl ed .05% ([place] 12:00: icati [place] 00 AM on} Health EDT Care) LIDEX CREAM UNK .0 suspend LIDEX CR EAM eCW3 .05% 2017 {appl ed .05% ([place] 12:00: icati [place] 00 AM on} Health EDT Care) LIDEX CREAM UNK .0 suspend LIDEX CR EAM eCW3 .05% 2017 {appl ed .05% ([place] 12:00: icati [place] 00 AM on} Health EDT Care) LIDEX CREAM UNK .0 suspend LIDEX CR EAM eCW3 .05% 2017 {appl ed .05% ([place] 12:00: icati [place] 00 AM on} Health EDT Care) LIDEX CREAM UNK .0 suspend LIDEX CR EAM eCW3 .05% 2017 {appl ed .05% ([place] 12:00: icati [place] 00 AM on} Health EDT Care) LIDEX CREAM UNK .0 suspend LIDEX CR EAM eCW3 .05% 2017 {appl ed .05% ([place] 12:00: icati [place] 00 AM on} Health EDT Care) LIDEX CREAM UNK .0 suspend LIDEX CR EAM eCW3 .05% 2017 {appl ed .05% ([place] 12:00: icati [place] 00 AM on} Health EDT Care) LIDEX CREAM UNK .0 suspend LIDEX CR EAM eCW3 .05% 2017 {appl ed .05% ([place] 12:00: icati [place] 00 AM on} Health EDT Care) LIDEX CREAM UNK .0 suspend LIDEX CR EAM eCW3 .05% 2017 {appl ed .05% ([place] 12:00: icati [place] 00 AM on} Health EDT Care) Amitriptyli Amitri .0 suspend Amitri ptylin eCW3 ne ptylin 2017 {tabl ed e HCl 25 MG ([facility] Hydrochlori e HCl 12:00: et} [place] de 25 MG 25 MG 00 AM Health Oral Tablet EDT Care) Amitriptyli ne HCl 25 MG 200 ACTUAT Ventol .0 active Ventolin HFA eCW3 Albuterol in HFA 2017 {puff 108 (90 ([facility] 0.09 108 12:00: s_as_ Base) [place] MG/ACTUAT (90 00 AM neede MCG/ACT Healt h Metered Base) EDT d} Care) Dose MCG/AC Inhaler T [Ventolin] Ventolin HFA 108 (90 Base) MCG/ACT Sodium [place] 09/25/ suspend [place] Nasal eCW 3 Chloride Nasal 2016 ed Mist ([place] 0.453 Mist 12:00: Allergy/Sinu Rive r MEQ/ML Allerg 00 AM s 2.65 % Health Nasal [place] y/Sinu EDT Care) [place] Nasal s 2.65 Mist % Allergy/Sin us 2.65 % Sodium [place] 09/25/ suspend [place] Nasal eCW 3 Chloride Nasal 2016 ed Mist ([place] 0.453 Mist 12:00: Allergy/Sinu Rive r MEQ/ML Allerg 00 AM s 2.65 % Health Nasal [place] y/Sinu EDT Care) [place] Nasal s 2.65 Mist % Allergy/Sin us 2.65 % Sodium [place] 09/25/ suspend [place] Nasal eCW 3 Chloride Nasal 2016 ed Mist ([place] 0.453 Mist 12:00: Allergy/Sinu Rive r MEQ/ML Allerg 00 AM s 2.65 % Health Nasal [place] y/Sinu EDT Care) [place] Nasal s 2.65 Mist % Allergy/Sin us 2.65 % Sodium [place] 09/25/ suspend [place] Nasal eCW 3 Chloride Nasal 2017 ed Mist ([place] 0.453 Mist 12:00: Allergy/Sinu Rive r MEQ/ML Allerg 00 AM s 2.65 % Health Nasal [place] y/Sinu EDT Care) [place] Nasal s 2.65 Mist % Allergy/Sin us 2.65 % 200 ACTUAT Ventol 2.0 suspend Ventoli n HFA eCW3 Albuterol in HFA 2017 {puff ed 108 (90 ([facility] 0.09 108 12:00: s_as_ Base) [place] MG/ACTUAT (90 00 AM neede MCG/ACT Healt h Metered Base) EDT d} Care) Dose MCG/AC Inhaler T [Ventolin] Ventolin HFA 108 (90 Base) MCG/ACT Amitriptyli Amitri .0 suspend Amitri ptylin eCW3 ne ptylin 2017 {tabl ed e HCl 25 MG ([facility] Hydrochlori e HCl 12:00: et} [place] de 25 MG 25 MG 00 AM Health Oral Tablet EDT Care) Amitriptyli ne HCl 25 MG 200 ACTUAT Ventol .0 active Ventolin HFA eCW3 Albuterol in HFA 2017 {puff 108 (90 ([facility] 0.09 108 12:00: s_as_ Base) [place] MG/ACTUAT (90 00 AM neede MCG/ACT Healt h Metered Base) EDT d} Care) Dose MCG/AC Inhaler T [Ventolin] Ventolin HFA 108 (90 Base) MCG/ACT Amitriptyli Amitri .0 suspend Amitri ptylin eCW3 ne ptylin 2017 {tabl ed e HCl 25 MG ([facility] Hydrochlori e HCl 12:00: et} [place] de 25 MG 25 MG 00 AM Health Oral Tablet EDT Care) Amitriptyli ne HCl 25 MG 60 ACTUAT Advair 1.0 suspend Advair e CW3 Fluticasone Diskus 2017 {puff ed Diskus (Hu dson propionate 250-50 12:00: } 250-50 Will er 0.25 MCG/DO 00 AM MCG/DOSE Health MG/ACTUAT / SE EDT Care) salmeterol 0.05 MG/ACTUAT Dry Powder Inhaler [Advair] Advair Diskus 250-50 MCG/DOSE Amitriptyli Amitri 1.0 suspend Amitri ptylin eCW3 ne ptylin 2017 {tabl ed e HCl 25 MG ([facility] Hydrochlori e HCl 12:00: et} [place] de 25 MG 25 MG 00 AM Health Oral Tablet EDT Care) Amitriptyli ne HCl 25 MG 60 ACTUAT Advair .0 suspend Advair e CW3 Fluticasone Diskus 2017 {puff ed Diskus (Hu dson propionate 250-50 12:00: } 250-50 Will er 0.25 MCG/DO 00 AM MCG/DOSE Health MG/ACTUAT / SE EDT Care) salmeterol 0.05 MG/ACTUAT Dry Powder Inhaler [Advair] Advair Diskus 250-50 MCG/DOSE 200 ACTUAT Ventol 2.0 active Ventolin HFA eCW3 Albuterol in HFA 2017 {puff 108 (90 (Hud son 0.09 108 12:00: s_as_ Base) [place] MG/ACTUAT (90 00 AM neede MCG/ACT Healt h Metered Base) EDT d} Care) Dose MCG/AC Inhaler T [Ventolin] Ventolin HFA 108 (90 Base) MCG/ACT 60 ACTUAT Advair .0 suspend Advair e CW3 Fluticasone Diskus 2017 {puff ed Diskus (Hu dson propionate 250-50 12:00: } 250-50 Will er 0.25 MCG/DO 00 AM MCG/DOSE Health MG/ACTUAT / SE EDT Care) salmeterol 0.05 MG/ACTUAT Dry Powder Inhaler [Advair] Advair Diskus 250-50 MCG/DOSE 60 ACTUAT Advair .0 suspend Advair e CW3 Fluticasone Diskus 2017 {puff ed Diskus (Hu dson propionate 250-50 12:00: } 250-50 Will er 0.25 MCG/DO 00 AM MCG/DOSE Health MG/ACTUAT / SE EDT Care) salmeterol 0.05 MG/ACTUAT Dry Powder Inhaler [Advair] Advair Diskus 250-50 MCG/DOSE 200 ACTUAT Ventol 2.0 suspend Ventoli n HFA eCW3 Albuterol in HFA 2017 {puff ed 108 (90 (Hud son 0.09 108 12:00: s_as_ Base) [place] MG/ACTUAT (90 00 AM neede MCG/ACT Healt h Metered Base) EDT d} Care) Dose MCG/AC Inhaler T [Ventolin] Ventolin HFA 108 (90 Base) MCG/ACT 60 ACTUAT Advair .0 suspend Advair e CW3 Fluticasone Diskus 2017 {puff ed Diskus (Hu dson propionate 250-50 12:00: } 250-50 Will er 0.25 MCG/DO 00 AM MCG/DOSE Health MG/ACTUAT / SE EDT Care) salmeterol 0.05 MG/ACTUAT Dry Powder Inhaler [Advair] Advair Diskus 250-50 MCG/DOSE 60 ACTUAT Advair .0 suspend Advair e CW3 Fluticasone Diskus 2017 {puff ed Diskus (Hu dson propionate 250-50 12:00: } 250-50 Will er 0.25 MCG/DO 00 AM MCG/DOSE Health MG/ACTUAT / SE EDT Care) salmeterol 0.05 MG/ACTUAT Dry Powder Inhaler [Advair] Advair Diskus 250-50 MCG/DOSE 200 ACTUAT Ventol .0 suspend Ventoli n HFA eCW3 Albuterol in HFA 2017 {puff ed 108 (90 (Hud son 0.09 108 12:00: s_as_ Base) [place] MG/ACTUAT (90 00 AM neede MCG/ACT Healt h Metered Base) EDT d} Care) Dose MCG/AC Inhaler T [Ventolin] Ventolin HFA 108 (90 Base) MCG/ACT Amitriptyli Amitri .0 suspend Amitri ptylin eCW3 ne ptylin 2017 {tabl ed e HCl 25 MG ([place] [facility] Hydrochlori e HCl 12:00: et} [place] de 25 MG 25 MG 00 AM Health Oral Tablet EDT Care) Amitriptyli ne HCl 25 MG 60 ACTUAT Advair .0 suspend Advair e CW3 Fluticasone Diskus 2017 {puff ed Diskus (Hu dson propionate 250-50 12:00: } 250-50 Will er 0.25 MCG/DO 00 AM MCG/DOSE Health MG/ACTUAT / SE EDT Care) salmeterol 0.05 MG/ACTUAT Dry Powder Inhaler [Advair] Advair Diskus 250-50 MCG/DOSE Sodium [place] 09/25/ suspend [place] Nasal eCW 3 Chloride Nasal 2016 ed Mist ([place] 0.453 Mist 12:00: Allergy/Sinu Rive r MEQ/ML Allerg 00 AM s 2.65 % Health Nasal [place] y/Sinu EDT Care) [place] Nasal s 2.65 Mist % Allergy/Sin us 2.65 % Sodium [place] 09/25/ suspend [place] Nasal eCW 3 Chloride Nasal 2016 ed Mist ([place] 0.453 Mist 12:00: Allergy/Sinu Rive r MEQ/ML Allerg 00 AM s 2.65 % Health Nasal [place] y/Sinu EDT Care) [place] Nasal s 2.65 Mist % Allergy/Sin us 2.65 % Sodium [place] 09/25/ suspend [place] Nasal eCW 3 Chloride Nasal 2016 ed Mist ([place] 0.453 Mist 12:00: Allergy/Sinu Rive r MEQ/ML Allerg 00 AM s 2.65 % Health Nasal [place] y/Sinu EDT Care) [place] Nasal s 2.65 Mist % Allergy/Sin us 2.65 % 200 ACTUAT Ventol 2.0 suspend Ventoli n HFA eCW3 Albuterol in HFA 2017 {puff ed 108 (90 (Hud son 0.09 108 12:00: s_as_ Base) [place] MG/ACTUAT (90 00 AM neede MCG/ACT Healt h Metered Base) EDT d} Care) Dose MCG/AC Inhaler T [Ventolin] Ventolin HFA 108 (90 Base) MCG/ACT 60 ACTUAT Advair .0 suspend Advair e CW3 Fluticasone Diskus 2016 {puff ed Diskus (Hu dson propionate 250-50 12:00: } 250-50 Will er 0.25 MCG/DO 00 AM MCG/DOSE Health MG/ACTUAT / SE EDT Care) salmeterol 0.05 MG/ACTUAT Dry Powder Inhaler [Advair] Advair Diskus 250-50 MCG/DOSE Sodium [place] 09/25/ suspend [place] Nasal eCW 3 Chloride Nasal 2017 ed Mist ([place] 0.453 Mist 12:00: Allergy/Sinu Rive r MEQ/ML Allerg 00 AM s 2.65 % Health Nasal [place] y/Sinu EDT Care) [place] Nasal s 2.65 Mist % Allergy/Sin us 2.65 % 200 ACTUAT Ventol .0 suspend Ventoli n HFA eCW3 Albuterol in HFA 2017 {puff ed 108 (90 ([facility] 0.09 108 12:00: s_as_ Base) [place] MG/ACTUAT (90 00 AM neede MCG/ACT Healt h Metered Base) EDT d} Care) Dose MCG/AC Inhaler T [Ventolin] Ventolin HFA 108 (90 Base) MCG/ACT Amitriptyli Amitri 1.0 suspend Amitri ptylin eCW3 ne ptylin 2016 {tabl ed e HCl 25 MG ([facility] Hydrochlori e HCl 12:00: et} [place] de 25 MG 25 MG 00 AM Health Oral Tablet EDT Care) Amitriptyli ne HCl 25 MG Amitriptyli Amitri .0 suspend Amitri ptylin eCW3 ne ptylin 2016 {tabl ed e HCl 25 MG ([facility] Hydrochlori e HCl 12:00: et} [place] de 25 MG 25 MG 00 AM Health Oral Tablet EDT Care) Amitriptyli ne HCl 25 MG Amitriptyli Amitri .0 suspend Amitri ptylin eCW3 ne ptylin 2016 {tabl ed e HCl 25 MG ([facility] Hydrochlori e HCl 12:00: et} [place] de 25 MG 25 MG 00 AM Health Oral Tablet EDT Care) Amitriptyli ne HCl 25 MG 200 ACTUAT Ventol 2.0 active Ventolin HFA eCW3 Albuterol in HFA 2017 {puff 108 (90 ([facility] 0.09 108 12:00: s_as_ Base) [place] MG/ACTUAT (90 00 AM neede MCG/ACT Healt h Metered Base) EDT d} Care) Dose MCG/AC Inhaler T [Ventolin] Ventolin HFA 108 (90 Base) MCG/ACT 200 ACTUAT Ventol 2.0 active Ventolin HFA eCW3 Albuterol in HFA 2017 {puff 108 (90 ([facility] 0.09 108 12:00: s_as_ Base) [place] MG/ACTUAT (90 00 AM neede MCG/ACT Healt h Metered Base) EDT d} Care) Dose MCG/AC Inhaler T [Ventolin] Ventolin HFA 108 (90 Base) MCG/ACT Amitriptyli Amitri .0 suspend Amitri ptylin eCW3 ne ptylin 2017 {tabl ed e HCl 25 MG ([facility] Hydrochlori e HCl 12:00: et} [place] de 25 MG 25 MG 00 AM Health Oral Tablet EDT Care) Amitriptyli ne HCl 25 MG 60 ACTUAT Advair .0 suspend Advair e CW3 Fluticasone Diskus 2017 {puff ed Diskus (Hu dson propionate 250-50 12:00: } 250-50 Will er 0.25 MCG/DO 00 AM MCG/DOSE Health MG/ACTUAT / SE EDT Care) salmeterol 0.05 MG/ACTUAT Dry Powder Inhaler [Advair] Advair Diskus 250-50 MCG/DOSE Sodium [place] 09/25/ suspend [place] Nasal eCW 3 Chloride Nasal 2017 ed Mist ([place] 0.453 Mist 12:00: Allergy/Sinu Rive r MEQ/ML Allerg 00 AM s 2.65 % Health Nasal [place] y/Sinu EDT Care) [place] Nasal s 2.65 Mist % Allergy/Sin us 2.65 % Norelgestro UNK .0 suspend Norelges trom eCW3 min-Eth 2017 {[facility] ed in-Eth ([place] Estradiol 12:00: h_to_ Estradiol Ri lizzette 150-35 00 AM skin} 150-35 Health MCG/24HR EST MCG/24HR Care) Norelgestro UNK .0 suspend Norelges trom eCW3 min-Eth 2017 {[facility] ed in-Eth ([place] Estradiol 12:00: h_to_ Estradiol Ri lizzette 150-35 00 AM skin} 150-35 Health MCG/24HR EST MCG/24HR Care) Norelgestro UNK .0 suspend Norelges trom eCW3 min-Eth 2017 {[facility] ed in-Eth ([place] Estradiol 12:00: h_to_ Estradiol Ri lizzette 150-35 00 AM skin} 150-35 Health MCG/24HR EST MCG/24HR Care) Norelgestro UNK .0 suspend Norelges trom eCW3 min-Eth 2017 {[facility] ed in-Eth ([place] Estradiol 12:00: h_to_ Estradiol Ri lizzette 150-35 00 AM skin} 150-35 Health MCG/24HR EST MCG/24HR Care) Norelgestro UNK .0 suspend Norelges trom eCW3 min-Eth 2017 {[facility] ed in-Eth ([place] Estradiol 12:00: h_to_ Estradiol Ri lizzette 150-35 00 AM skin} 150-35 Health MCG/24HR EST MCG/24HR Care) Norelgestro UNK .0 suspend Norelges trom eCW3 min-Eth 2017 {[facility] ed in-Eth ([place] Estradiol 12:00: h_to_ Estradiol Ri lizzette 150-35 00 AM skin} 150-35 Health MCG/24HR EST MCG/24HR Care) Norelgestro UNK .0 suspend Norelges trom eCW3 min-Eth 2017 {[facility] ed in-Eth ([place] Estradiol 12:00: h_to_ Estradiol Ri lizzette 150-35 00 AM skin} 150-35 Health MCG/24HR EST MCG/24HR Care) Norelgestro UNK .0 suspend Norelges trom eCW3 min-Eth 2017 {[facility] ed in-Eth ([place] Estradiol 12:00: h_to_ Estradiol Ri lizzette 150-35 00 AM skin} 150-35 Health MCG/24HR EST MCG/24HR Care) Norelgestro UNK .0 suspend Norelges trom eCW3 min-Eth 2017 {[facility] ed in-Eth ([place] Estradiol 12:00: h_to_ Estradiol Ri lizzette 150-35 00 AM skin} 150-35 Health MCG/24HR EST MCG/24HR Care) Norelgestro UNK .0 suspend Norelges trom eCW3 min-Eth 2017 {[facility] ed in-Eth ([place] Estradiol 12:00: h_to_ Estradiol Ri lizzette 150-35 00 AM skin} 150-35 Health MCG/24HR EST MCG/24HR Care) Norelgestro UNK .0 suspend Norelges trom eCW3 min-Eth 2017 {[facility] ed in-Eth ([place] Estradiol 12:00: h_to_ Estradiol Ri lizzette 150-35 00 AM skin} 150-35 Health MCG/24HR EST MCG/24HR Care) Norelgestro UNK .0 suspend Norelges trom eCW3 min-Eth 2017 {[facility] ed in-Eth ([place] Estradiol 12:00: h_to_ Estradiol Ri lizzette 150-35 00 AM skin} 150-35 Health MCG/24HR EST MCG/24HR Care) Norelgestro UNK .0 suspend Norelges trom eCW3 min-Eth 2017 {[facility] ed in-Eth ([place] Estradiol 12:00: h_to_ Estradiol Ri lizzette 150-35 00 AM skin} 150-35 Health MCG/24HR EST MCG/24HR Care) Norelgestro UNK .0 suspend Norelges trom eCW3 min-Eth 2017 {[facility] ed in-Eth ([place] Estradiol 12:00: h_to_ Estradiol Ri lizzette 150-35 00 AM skin} 150-35 Health MCG/24HR EST MCG/24HR Care) Norelgestro UNK .0 suspend Norelges trom eCW3 min-Eth 2017 {[facility] ed in-Eth ([place] Estradiol 12:00: h_to_ Estradiol Ri lizzette 150-35 00 AM skin} 150-35 Health MCG/24HR EST MCG/24HR Care) Norelgestro UNK 1.0 suspend Norelges trom eCW3 min-Eth 2017 {[facility] ed in-Eth ([place] Estradiol 12:00: h_to_ Estradiol Ri lizzette 150-35 00 AM skin} 150-35 Health MCG/24HR EST MCG/24HR Care) Norelgestro UNK .0 suspend Norelges trom eCW3 min-Eth 2017 {[facility] ed in-Eth ([place] Estradiol 12:00: h_to_ Estradiol Ri lizzette 150-35 00 AM skin} 150-35 Health MCG/24HR EST MCG/24HR Care) Norelgestro UNK .0 suspend Norelges trom eCW3 min-Eth 2017 {[facility] ed in-Eth ([place] Estradiol 12:00: h_to_ Estradiol Ri lizzette 150-35 00 AM skin} 150-35 Health MCG/24HR EST MCG/24HR Care) CitraNatal CitraN 12/06/ suspend CitraNa tao eCW3 Assure 35-1 atal 2016 ed Assure 35-1 ( [place] & 300 MG Assure 12:00: & 300 MG Will er 35-1 & 00 AM Health 300 MG EDT Care) UNK 12/06/ suspend eC W3 Vitamins 2016 ed Vitamins ([place] 12:00: [place] 00 AM Health EDT Care) UNK 12/06/ suspend eC W3 Vitamins 2016 ed Vitamins ([place] 12:00: [place] 00 AM Health EDT Care) CitraNatal CitraN 12/06/ suspend CitraNa tao eCW3 Assure 35-1 atal 2016 ed Assure 35-1 ( [place] & 300 MG Assure 12:00: & 300 MG Will er 35-1 & 00 AM Health 300 MG EDT Care) CitraNatal CitraN 12/06/ suspend CitraNa tao eCW3 Assure 35-1 atal 2016 ed Assure 35-1 ( [place] & 300 MG Assure 12:00: & 300 MG Will er 35-1 & 00 AM Health 300 MG EDT Care) CitraNatal CitraN 12/06/ suspend CitraNa tao eCW3 Assure 35-1 atal 2016 ed Assure 35-1 ( [place] & 300 MG Assure 12:00: & 300 MG Will er 35-1 & 00 AM Health 300 MG EDT Care) CitraNatal CitraN 12/06/ suspend CitraNa tao eCW3 Assure 35-1 atal 2016 ed Assure 35-1 ( [place] & 300 MG Assure 12:00: & 300 MG Will er 35-1 & 00 AM Health 300 MG EDT Care) CitraNatal CitraN 12/06/ suspend CitraNa tao eCW3 Assure 35-1 atal 2016 ed Assure 35-1 ( [place] & 300 MG Assure 12:00: & 300 MG Will er 35-1 & 00 AM Health 300 MG EDT Care) UNK 12/06/ suspend eC W3 Vitamins 2016 ed Vitamins ([place] 12:00: [place] 00 AM Health EDT Care) UNK 12/06/ suspend eC W3 Vitamins 2016 ed Vitamins ([place] 12:00: [place] 00 AM Health EDT Care) UNK 12/06/ suspend eC W3 Vitamins 2016 ed Vitamins ([place] 12:00: [place] 00 AM Health EDT Care) UNK 12/06/ suspend eC W3 Vitamins 2016 ed Vitamins ([place] 12:00: [place] 00 AM Health EDT Care) CitraNatal CitraN 12/06/ suspend CitraNa tao eCW3 Assure 35-1 atal 2016 ed Assure 35-1 ( [place] & 300 MG Assure 12:00: & 300 MG Will er 35-1 & 00 AM Health 300 MG EDT Care) CitraNatal CitraN 12/06/ suspend CitraNa tao eCW3 Assure 35-1 atal 2016 ed Assure 35-1 ( [place] & 300 MG Assure 12:00: & 300 MG Will er 35-1 & 00 AM Health 300 MG EDT Care) UNK 12/06/ suspend eC W3 Vitamins 2016 ed Vitamins ([place] 12:00: [place] 00 AM Health EDT Care) UNK 12/06/ suspend eC W3 Vitamins 2016 ed Vitamins ([place] 12:00: [place] 00 AM Health EDT Care) CitraNatal CitraN 12/06/ suspend CitraNa tao eCW3 Assure 35-1 atal 2016 ed Assure 35-1 ( [place] & 300 MG Assure 12:00: & 300 MG Will er 35-1 & 00 AM Health 300 MG EDT Care) UNK 06/02/ suspend eC W3 Vitamins 2016 ed Vitamins ([place] 12:00: [place] 00 AM Health EDT Care) Amoxicillin Amoxic .0 suspend Amoxic illin eCW3 500 MG Oral illin 2016 {tabl ed 500 mg ([facility] Tablet 500 mg 12:00: et} [place] Amoxicillin 00 AM Health 500 mg EDT Care) Amoxicillin Amoxic .0 suspend Amoxic illin eCW3 500 MG Oral illin 2016 {tabl ed 500 mg ([facility] Tablet 500 mg 12:00: et} [place] Amoxicillin 00 AM Health 500 mg EDT Care) Amoxicillin Amoxic .0 suspend Amoxic illin eCW3 500 MG Oral illin 2016 {tabl ed 500 mg ([facility] Tablet 500 mg 12:00: et} [place] Amoxicillin 00 AM Health 500 mg EDT Care) Amoxicillin Amoxic .0 suspend Amoxic illin eCW3 500 MG Oral illin 2016 {tabl ed 500 mg ([facility] Tablet 500 mg 12:00: et} [place] Amoxicillin 00 AM Health 500 mg EDT Care) Amoxicillin Amoxic .0 suspend Amoxic illin eCW3 500 MG Oral illin 2016 {tabl ed 500 mg ([facility] Tablet 500 mg 12:00: et} [place] Amoxicillin 00 AM Health 500 mg EDT Care) Amoxicillin Amoxic .0 suspend Amoxic illin eCW3 500 MG Oral illin 2016 {tabl ed 500 mg ([facility] Tablet 500 mg 12:00: et} [place] Amoxicillin 00 AM Health 500 mg EDT Care) Amoxicillin Amoxic .0 suspend Amoxic illin eCW3 500 MG Oral illin 2016 {tabl ed 500 mg ([facility] Tablet 500 mg 12:00: et} [place] Amoxicillin 00 AM Health 500 mg EDT Care) Amoxicillin Amoxic .0 suspend Amoxic illin eCW3 500 MG Oral illin 2016 {tabl ed 500 mg ([facility] Tablet 500 mg 12:00: et} [place] Amoxicillin 00 AM Health 500 mg EDT Care) Amoxicillin Amoxic .0 suspend Amoxic illin eCW3 500 MG Oral illin 2016 {tabl ed 500 mg ([facility] Tablet 500 mg 12:00: et} [place] Amoxicillin 00 AM Health 500 mg EDT Care) Benadryl 25 Benadr 08// suspend Benadr yl 25 eCW3 MG yl 25 2011 ed MG ([place] MG 12:00: [place] 00 AM Health EDT Care) Benadryl 25 Benadr 08/14/ suspend Benadr yl 25 eCW3 MG yl 25 2011 ed MG ([place] MG 12:00: [place] 00 AM Health EDT Care) Benadryl 25 Benadr 08/ suspend Benadr yl 25 eCW3 MG yl 25 2011 ed MG ([place] MG 12:00: [place] 00 AM Health EDT Care) Benadryl 25 Benadr 02/17/ suspend Benadr yl 25 eCW3 MG yl 25 2011 ed MG ([place] MG 12:00: [place] 00 AM Health EDT Care) Benadryl 25 Benadr 08/ suspend Benadr yl 25 eCW3 MG yl 25 2011 ed MG ([place] MG 12:00: [place] 00 AM Health EDT Care) Benadryl 25 Benadr 02/17/ suspend Benadr yl 25 eCW3 MG yl 25 2011 ed MG ([place] MG 12:00: [place] 00 AM Health EDT Care) Benadryl 25 Benadr 02/17/ suspend Benadr yl 25 eCW3 MG yl 25 2011 ed MG ([place] MG 12:00: [place] 00 AM Health EDT Care) Benadryl 25 Benadr 02/17/ suspend Benadr yl 25 eCW3 MG yl 25 2011 ed MG ([place] MG 12:00: [place] 00 AM Health EDT Care) Benadryl 25 Benadr 08/ suspend Benadr yl 25 eCW3 MG yl 25 2011 ed MG ([place] MG 12:00: [place] 00 AM Health EDT Care) Condoms - UNK 06/16/ suspend Condoms - eCW3 Male 2011 ed Male ([place] 12:00: [place] 00 AM Health EDT Care) Condoms - UNK 06/16/ suspend Condoms - eCW3 Male 2011 ed Male ([place] 12:00: [place] 00 AM Health EDT Care) Condoms - UNK 06/16/ suspend Condoms - eCW3 Male 2011 ed Male ([place] 12:00: [place] 00 AM Health EDT Care) Condoms - UNK 06/16/ suspend Condoms - eCW3 Male 2011 ed Male ([place] 12:00: [place] 00 AM Health EDT Care) Condoms - UNK /16/ suspend Condoms - eCW3 Male 2010 ed Male ([place] 12:00: [place] 00 AM Health EDT Care) Condoms - UNK /16/ suspend Condoms - eCW3 Male 2011 ed Male ([place] 12:00: [place] 00 AM Health EDT Care) Condoms - UNK /16/ suspend Condoms - eCW3 Male 2010 ed Male ([place] 12:00: [place] 00 AM Health EDT Care) Condoms - UNK 16/ suspend Condoms - eCW3 Male 2011 ed Male ([place] 12:00: [place] 00 AM Health EDT Care) Condoms - UNK /16/ suspend Condoms - eCW3 Male 2011 ed Male ([place] 12:00: [place] 00 AM Health EDT Care) topiramate Topira 1.0 suspend Topiramat e eCW3 25 MG Oral mate {tabl ed 25 MG ([place] Tablet 25 MG et} [place] Topiramate Health 25 MG Care) Hydrocortis Neomyc 4.0 suspend Neomycin -Easu eCW3 one 10 in-Esau {drop ed ymyxin-HC ([facility] MG/ML / ymyxin s_int 3.5-40602-0 Ri lizzette Neomycin -HC o_aff Health 3.5 MG/ML / 3.5-10 ected Care) Polymyxin B 000-1 _ear} 59408 UNT/ML Otic Suspension Neomycin-Po lymyxin-HC 3.5-24529-2 doxycycline Doxycy 1.0 active Doxycycli ne eCW3 hyclate 100 mendieta {tabl Hyclate 100 ([place] MG Oral Hyclat et} mg [place] Tablet e 100 Health Doxycycline mg Care) Hyclate 100 mg 21 DAY NuvaRi suspend NuvaRing eCW3 Ethinyl ng ed 0.12-0.015 ([facility] Estradiol 0.12-0 MG/24HR [place] 0.481178 .015 Health MG/HR / MG/24H Care) Etonogestre R l 0.005 MG/HR Vaginal Ring [NuvaRing] NuvaRing 0.12-0.015 MG/24HR Amoxicillin Amoxic 1.0 suspend Amoxicil claudio eCW3 500 MG Oral illin {tabl ed 500 mg ([facility] Tablet 500 mg et} [place] Amoxicillin Health 500 mg Care) Cyanocobala UNK suspend Cyanocobal am eCW3 min 1000 ed in 1000 ([place] MCG/ML MCG/ML [facility]) Ciprofloxac UNK 4.0 suspend Ciprofloxa ci eCW3 in-Dexameth {drop ed n-Dexamethas ([place] asone s_int one 0.3-0.1 [place] 0.3-0.1 % o_aff % Health ected Care) _ear} Ciprofloxac Ciprod 4.0 suspend Ciprodex eCW3 in 3 MG/ML ex {drop ed 0.3-0.1 % (Hu dson / 0.3-0. s_int [place] Dexamethaso 1 % o_aff Health ne 1 MG/ML ected Care) Otic _ear} Suspension [Ciprodex] Ciprodex 0.3-0.1 % VENTOLIN UNK suspend VENTOLIN HFA eCW3 HFA ed ([facility]) Doxycycline Doxycy 1.0 suspend Doxycycl ine eCW3 Monohydrate mendieta {caps ed Monohydrate ([place] 100 MG Oral Monohy ule} 100 MG Rive r Capsule drate Health 100 MG Care) Ciprofloxac Ciprod 4.0 suspend Ciprodex eCW3 in 3 MG/ML ex {drop ed 0.3-0.1 % (Hu dson / 0.3-0. s_int [place] Dexamethaso 1 % o_aff Health ne 1 MG/ML ected Care) Otic _ear} Suspension [Ciprodex] Ciprodex 0.3-0.1 % Ciprofloxac UNK 4.0 active Ciprofloxac i eCW3 in-Dexameth {drop n-Dexamethas ([place] asone s_int one 0.3-0.1 [place] 0.3-0.1 % o_aff % Health ected Care) _ear} Ciprofloxac Ciprod 4.0 suspend Ciprodex eCW3 in 3 MG/ML ex {drop ed 0.3-0.1 % (Hu dson / 0.3-0. s_int [place] Dexamethaso 1 % o_aff Health ne 1 MG/ML ected Care) Otic _ear} Suspension [Ciprodex] Ciprodex 0.3-0.1 % topiramate Topira 1.0 suspend Topiramat e eCW3 25 MG Oral mate {tabl ed 25 MG ([place] Tablet 25 MG et} [place] Topiramate Health 25 MG Care) doxycycline Doxycy 1.0 active Doxycycli ne eCW3 hyclate 100 mendieta {tabl Hyclate 100 ([place] MG Oral Hyclat et} mg [place] Tablet e 100 Health Doxycycline mg Care) Hyclate 100 mg rizatriptan Rizatr 1.0 active Rizatript an eCW3 10 MG Oral iptan {tabl Benzoate 10 ([place] Tablet Benzoa et_as MG [place] Rizatriptan te 10 _need Health Benzoate 10 MG ed_on Care) MG e_tim e} Naproxen UNK suspend Naproxen eCW3 ed ([facility]) Doxycycline Doxycy 1.0 active Doxycycli ne eCW3 Monohydrate mendieta {caps Monohydrate ([place] 100 MG Oral Monohy ule} 100 MG Rive r Capsule drate Health 100 MG Care) VENTOLIN UNK suspend VENTOLIN HFA eCW3 HFA ed ([facility]) Ciprofloxac Ciprod 4.0 suspend Ciprodex eCW3 in 3 MG/ML ex {drop ed 0.3-0.1 % (Hu dson / 0.3-0. s_int [place] Dexamethaso 1 % o_aff Health ne 1 MG/ML ected Care) Otic _ear} Suspension [Ciprodex] Ciprodex 0.3-0.1 % Naproxen UNK suspend Naproxen eCW3 ed ([facility]) pantoprazol pantop 1 complet Marcus nt e 40 MG razole ed Nelia Delayed 40 mg Medical Release tablet Center Oral Tablet ,delay pantoprazol ed e 40 mg releas tablet,andrew e yed release (/EC (/EC), ), Ordered By: Camryn Romero d By: Dominguez, Enriqu MDDirection e s: 1 tablet Dominguez, oral daily MDDire before ctions breakfast : 1 tablet oral daily before breakf ast doxycycline Doxycy 1.0 suspend Doxycycl ine eCW3 hyclate 100 mendieta {tabl ed Hyclate 100 ([place] MG Oral Hyclat et} mg [place] Tablet e 100 Health Doxycycline mg Care) Hyclate 100 mg rizatriptan Rizatr 1.0 suspend Rizatrip faye eCW3 10 MG Oral iptan {tabl ed Benzoate 10 ([place] Tablet Benzoa et_as MG [place] Rizatriptan te 10 _need Health Benzoate 10 MG ed_on Care) MG e_tim e} VENTOLIN UNK suspend VENTOLIN HFA eCW3 HFA ed ([facility] Care) Hydrocortis Neomyc 4.0 active Neomycin- [place] eCW3 one 10 in-[place] {drop ymyxin-HC ([facility] MG/ML / ymyxin s_int 3.5-88665-9 Ri lizzette Neomycin -HC o_aff Health 3.5 MG/ML / 3.5-10 ected Care) Polymyxin B 000-1 _ear} 96820 UNT/ML Otic Suspension Neomycin-Po lymyxin-HC 3.5-68427-3 Hydrocortis Neomyc 4.0 suspend Neomycin -[place] eCW3 one 10 in-[place] {drop ed ymyxin-HC ([facility] MG/ML / ymyxin s_int 3.5-81196-4 Ri lizzette Neomycin -HC o_aff Health 3.5 MG/ML / 3.5-10 ected Care) Polymyxin B 000-1 _ear} 10534 UNT/ML Otic Suspension Neomycin-Po lymyxin-HC 3.5-16786-5 Diclofenac diclof 1 complet Jennifer t Sodium 50 enac ed Nelia MG Delayed sodium Medical Release 50 mg Center Oral Tablet tablet diclofenac ,delay sodium 50 ed mg releas tablet,andrew e yed release (/EC (/EC), ), Ordered By: lurdes Mtz By: NPDirection Clau s: 1 tablet Meril, oral twice NPDire a day PRN ctions pain : 1 tablet oral twice a day PRN pain 21 DAY NuvaRi suspend NuvaRing eCW3 Ethinyl ng ed 0.12-0.015 ([facility] Estradiol 0.12-0 MG/24HR [place] 0.275424 .015 Health MG/HR / MG/24H Care) Etonogestre R l 0.005 MG/HR Vaginal Ring [NuvaRing] NuvaRing 0.12-0.015 MG/24HR Hydrocortis Neomyc 4.0 suspend Neomycin -[place] eCW3 one 10 in-[place] {drop ed ymyxin-HC ([facility] MG/ML / ymyxin s_int 3.5-07767-2 Ri lizzette Neomycin -HC o_aff Health 3.5 MG/ML / 3.5-10 ected Care) Polymyxin B 000-1 _ear} 01298 UNT/ML Otic Suspension Neomycin-Po lymyxin-HC 3.5-05787-9 VENTOLIN UNK suspend VENTOLIN HFA eCW3 HFA ed ([facility]) VENTOLIN UNK suspend VENTOLIN HFA eCW3 HFA ed ([facility]) Amoxicillin Amoxic 1.0 suspend Amoxicil claudio eCW3 500 MG Oral illin {tabl ed 500 mg ([facility] Tablet 500 mg et} [place] Amoxicillin Health 500 mg Care) Cyanocobala UNK suspend Cyanocobal am eCW3 min 1000 ed in 1000 ([place] MCG/ML MCG/ML [facility]) rizatriptan Rizatr 1.0 active Rizatript an eCW3 10 MG Oral iptan {tabl Benzoate 10 ([place] Tablet Benzoa et_as MG [place] Rizatriptan te 10 _need Health Benzoate 10 MG ed_on Care) MG e_tim e} Metformin METFOR 1.0 active METFORMIN e CW3 hydrochlori MIN {tabl HCL 500 MG ( [place] de 500 MG HCL et_wi [place] Oral Tablet 500 MG th_me Healt h METFORMIN als} Care) HCL 500 MG Metformin METFOR 1.0 active METFORMIN e CW3 hydrochlori MIN {tabl HCL 1000 mg ([place] de 1000 MG HCL et_wi [place] Oral Tablet 1000 th_me Health METFORMIN mg als} Care) HCL 1000 mg Famotidine Famoti 1.0 active Famotidine eCW3 40 MG Oral dine {tabl 40 MG ([place] Tablet 40 MG et_at [place] _bedt Health batool} Care) rizatriptan Rizatr 1.0 active Rizatript an eCW3 10 MG Oral iptan {tabl Benzoate 10 ([place] Tablet Benzoa et_as MG [place] Rizatriptan te 10 _need Health Benzoate 10 MG ed_on Care) MG e_tim e} Hydrocortis Neomyc 4.0 suspend Neomycin -[place] eCW3 one 10 in-[place] {drop ed ymyxin-HC ([facility] MG/ML / ymyxin s_int 3.5-81993-9 Ri lizzette Neomycin -HC o_aff Health 3.5 MG/ML / 3.5-10 ected Care) Polymyxin B 000-1 _ear} 96233 UNT/ML Otic Suspension Neomycin-Po lymyxin-HC 3.5-75524-7 Naproxen UNK suspend Naproxen eCW3 ed ([facility]) Ciprofloxac Ciprod 4.0 suspend Ciprodex eCW3 in 3 MG/ML ex {drop ed 0.3-0.1 % (Hu dson / 0.3-0. s_int [place] Dexamethaso 1 % o_aff Health ne 1 MG/ML ected Care) Otic _ear} Suspension [Ciprodex] Ciprodex 0.3-0.1 % Amoxicillin Amoxic 1.0 suspend Amoxicil claudio eCW3 500 MG Oral illin {tabl ed 500 mg ([facility] son Tablet 500 mg et} [place] Amoxicillin Health 500 mg Care) Ciprofloxac UNK 4.0 active Ciprofloxac i eCW3 in-Dexameth {drop n-Dexamethas ([place] asone s_int one 0.3-0.1 [place] 0.3-0.1 % o_aff % Health ected Care) _ear} VENTOLIN UNK suspend VENTOLIN HFA eCW3 HFA ed ([facility]) Amoxicillin Amoxic 1.0 suspend Amoxicil claudio eCW3 500 MG Oral illin {tabl ed 500 mg ([facility] Tablet 500 mg et} [place] Amoxicillin Health 500 mg Care) Ciprofloxac Ciprod 4.0 suspend Ciprodex eCW3 in 3 MG/ML ex {drop ed 0.3-0.1 % (Hu dson / 0.3-0. s_int [place] Dexamethaso 1 % o_aff Health ne 1 MG/ML ected Care) Otic _ear} Suspension [Ciprodex] Ciprodex 0.3-0.1 % Naproxen UNK suspend Naproxen eCW3 ed ([facility]) VENTOLIN UNK suspend VENTOLIN HFA eCW3 HFA ed ([facility]) Naproxen UNK suspend Naproxen eCW3 ed ([facility]) Naproxen UNK suspend Naproxen eCW3 ed ([facility]) Cyanocobala UNK suspend Cyanocobal am eCW3 min 1000 ed in 1000 ([place] MCG/ML MCG/ML [facility]) topiramate Topira 1.0 suspend Topiramat e eCW3 25 MG Oral mate {tabl ed 25 MG ([place] Tablet 25 MG et} [place] Topiramate Health 25 MG Care) Ibuprofen Ibupro suspend Ibuprofen eCW3 800 MG Oral fen ed 800 MG ([facility] [facility] Tablet [address] [facility]) Doxycycline Doxycy 1.0 active Doxycycli ne eCW3 Monohydrate mendieta {caps Monohydrate ([place] 100 MG Oral Monohy ule} 100 MG Rive r Capsule drate Health 100 MG [facility]) rizatriptan Rizatr 1.0 active Rizatript an eCW3 10 MG Oral iptan {tabl Benzoate 10 ([place] Tablet Benzoa et_as MG [place] Rizatriptan te 10 _need Health Benzoate 10 MG ed_on Care) MG e_tim e} rizatriptan Rizatr 1.0 active Rizatript an eCW3 10 MG Oral iptan {tabl Benzoate 10 ([place] Tablet Benzoa et_as MG [place] Rizatriptan te 10 _need Health Benzoate 10 MG ed_on Care) MG e_tim e} topiramate Topira 1.0 suspend Topiramat e eCW3 25 MG Oral mate {tabl ed 25 MG ([place] Tablet 25 MG et} [place] Topiramate Health 25 MG Care) 21 DAY NuvaRi suspend NuvaRing eCW3 Ethinyl ng ed 0.12-0.015 ([place] Estradiol 0.12-0 MG/24HR [place] 0.269462 .015 Health MG/HR / MG/24H Care) Etonogestre R l 0.005 MG/HR Vaginal Ring [NuvaRing] NuvaRing 0.12-0.015 MG/24HR topiramate Topira 1.0 suspend Topiramat e eCW3 25 MG Oral mate {tabl ed 25 MG ([place] Tablet 25 MG et} [place] Topiramate Health 25 MG Care) 21 DAY NuvaRi suspend NuvaRing eCW3 Ethinyl ng ed 0.12-0.015 ([place] Estradiol 0.12-0 MG/24HR [place] 0.123953 .015 Health MG/HR / MG/24H Care) Etonogestre R l 0.005 MG/HR Vaginal Ring [NuvaRing] NuvaRing 0.12-0.015 MG/24HR doxycycline Doxycy 1.0 suspend Doxycycl ine eCW3 hyclate 100 mendieta {tabl ed Hyclate 100 ([place] MG Oral Hyclat et} mg [place] Tablet e 100 Health Doxycycline mg Care) Hyclate 100 mg Simethicone Gas-X 1.0 active Gas-X Extr a eCW3 125 MG Extra {tabl Strength 125 (Hu dson Chewable Streng et_af MG [place] Tablet th 125 ter_m Health [Gas-X MG eals_ Care) Extra and_a Strength] t_bed Gas-X Extra time_ Strength as_ne 125 MG eded} Hydrocortis Neomyc 4.0 suspend Neomycin -[place] eCW3 one 10 in-[place] {drop ed ymyxin-HC ([place] MG/ML / ymyxin s_int 3.5-69211-9 Ri lizzette Neomycin -HC o_aff Health 3.5 MG/ML / 3.5-10 ected Care) Polymyxin B 000-1 _ear} 94094 UNT/ML Otic Suspension Neomycin-Po lymyxin-HC 3.5-22738-9 21 DAY NuvaRi suspend NuvaRing eCW3 Ethinyl ng ed 0.12-0.015 ([place] Estradiol 0.12-0 MG/24HR [place] 0.249595 .015 Health MG/HR / MG/24H Care) Etonogestre R l 0.005 MG/HR Vaginal Ring [NuvaRing] NuvaRing 0.12-0.015 MG/24HR Doxycycline Doxycy 1.0 suspend Doxycycl ine eCW3 Monohydrate mendieta {caps ed Monohydrate ([place] 100 MG Oral Monohy ule} 100 MG Rive r Capsule drate Health 100 MG Care) 21 DAY NuvaRi suspend NuvaRing eCW3 Ethinyl ng ed 0.12-0.015 ([place] Estradiol 0.12-0 MG/24HR [place] 0.505446 .015 Health MG/HR / MG/24H Care) Etonogestre R l 0.005 MG/HR Vaginal Ring [NuvaRing] NuvaRing 0.12-0.015 MG/24HR Amoxicillin Amoxic 1.0 suspend Amoxicil claudio eCW3 500 MG Oral illin {tabl ed 500 mg ([facility] Tablet 500 mg et} [place] Amoxicillin Health 500 mg Care) gabapentin Gabape 1.0 active Gabapentin eCW3 300 MG Oral ntin {caps 300 MG ([facility] Capsule 300 MG ule} [place] Gabapentin Health 300 MG Care) doxycycline Doxycy 1.0 active Doxycycli ne eCW3 hyclate 100 mendieta {tabl Hyclate 100 ([place] MG Oral Hyclat et} mg [place] Tablet e 100 Health Doxycycline mg Care) Hyclate 100 mg 21 DAY NuvaRi suspend NuvaRing eCW3 Ethinyl ng ed 0.12-0.015 ([place] [facility] Estradiol 0.12-0 MG/24HR [place] 0.042064 .015 Health MG/HR / MG/24H Care) Etonogestre R l 0.005 MG/HR Vaginal Ring [NuvaRing] NuvaRing 0.12-0.015 MG/24HR Ciprofloxac Ciprod 4.0 suspend Ciprodex eCW3 in 3 MG/ML ex {drop ed 0.3-0.1 % ( dson / 0.3-0. s_int [place] Dexamethaso 1 % o_aff Health ne 1 MG/ML ected Care) Otic _ear} Suspension [Ciprodex] Ciprodex 0.3-0.1 % VENTOLIN UNK suspend VENTOLIN HFA eCW3 HFA ed ([facility]) Naproxen UNK suspend Naproxen eCW3 ed ([facility]) Hydrocortis Neomyc 4.0 suspend Neomycin -[place] eCW3 one 10 in-[place]au {drop ed ymyxin-HC ([facility] on MG/ML / ymyxin s_int 3.5-81440-4 Ri lizzette Neomycin -HC o_aff Health 3.5 MG/ML / 3.5-10 ected Care) Polymyxin B 000-1 _ear} 54586 UNT/ML Otic Suspension Neomycin-Po lymyxin-HC 3.5-89944-1 Ibuprofen Ibupro active Ibuprofen e CW3 800 MG [facility] fen [facility] [address] [facility]) Emgality UNK active Emgality 300 e CW3 300 Dose Dose ([facility]) Ciprofloxac Ciprod 4.0 suspend Ciprodex eCW3 in 3 MG/ML ex {drop ed 0.3-0.1 % ( dson / 0.3-0. s_int [place] Dexamethaso 1 % o_aff Health ne 1 MG/ML ected Care) Otic _ear} Suspension [Ciprodex] Ciprodex 0.3-0.1 % Naproxen UNK suspend Naproxen eCW3 ed ([facility]) 21 DAY NuvaRi suspend NuvaRing eCW3 Ethinyl ng ed 0.12-0.015 ([facility]0 MG/24HR [place] 0.829355 .015 Health MG/HR / MG/24H Care) Etonogestre R l 0.005 MG/HR Vaginal Ring [NuvaRing] NuvaRing 0.12-0.015 MG/24HR VENTOLIN UNK suspend VENTOLIN HFA eCW3 HFA ed ([facility]) Amoxicillin Amoxic 1.0 suspend Amoxicil claudio eCW3 500 MG Oral illin {tabl ed 500 mg ([facility] son Tablet 500 mg et} [place] Amoxicillin Health 500 mg [facility]) Doxycycline Doxycy 1.0 suspend Doxycycl ine eCW3 Monohydrate mendieta {caps ed Monohydrate ([place] 100 MG Oral Monohy ule} 100 MG [facility] Capsule drate Health 100 MG Care) rizatriptan Rizatr 1.0 active Rizatript an eCW3 10 MG Oral iptan {tabl Benzoate 10 ([place] Tablet Benzoa et_as MG [place] Rizatriptan te 10 _need Health Benzoate 10 MG ed_on Care) MG e_tim e} Doxycycline Doxycy 1.0 active Doxycycli ne eCW3 Monohydrate mendieta {caps Monohydrate ([place] 100 MG Oral Monohy ule} 100 MG [facility] Capsule drate Health 100 MG Care) doxycycline Doxycy 1.0 suspend Doxycycl ine eCW3 hyclate 100 mendieta {tabl ed Hyclate 100 ([place] MG Oral Hyclat et} mg [place] Tablet e 100 Health Doxycycline mg Care) Hyclate 100 mg 21 DAY NuvaRi suspend NuvaRing eCW3 Ethinyl ng ed 0.12-0.015 ([place] [facility] Estradiol 0.12-0 MG/24HR [place] 0.914229 .015 Health MG/HR / MG/24H Care) Etonogestre R l 0.005 MG/HR Vaginal Ring [NuvaRing] NuvaRing 0.12-0.015 MG/24HR Amoxicillin Amoxic 1.0 suspend Amoxicil claudio eCW3 500 MG Oral illin {tabl ed 500 mg ([facility] Tablet 500 mg et} [place] Amoxicillin Health 500 mg Care) Naproxen UNK suspend Naproxen eCW3 ed ([facility]) rizatriptan Rizatr 1.0 active Rizatript an eCW3 10 MG Oral iptan {tabl Benzoate 10 ([place] Tablet Benzoa et_as MG [place] Rizatriptan te 10 _need Health Benzoate 10 MG ed_on Care) MG e_tim e} Cyanocobala UNK suspend Cyanocobal am eCW3 min 1000 ed in 1000 ([place] MCG/ML MCG/ML [facility]) topiramate Topira 1.0 active Topiramate eCW3 25 MG Oral mate {tabl 25 MG ([place] Tablet 25 MG et} [place] Topiramate Health 25 MG Care) Emgality UNK suspend Emgality 300 eCW3 300 Dose ed Dose ([facility]) Cyanocobala UNK suspend Cyanocobal am eCW3 min 1000 ed in 1000 ([place] MCG/ML MCG/ML [facility]) gabapentin Gabape 1.0 suspend Gabapenti n eCW3 300 MG Oral ntin {caps ed 300 MG ([facility] Capsule 300 MG ule} [place] Gabapentin Health 300 MG Care) Cyanocobala UNK suspend Cyanocobal am eCW3 min 1000 ed in 1000 ([place] MCG/ML MCG/ML [place] [facility]) Ergocalcife Vitami 1.0 active Vitamin D eCW3 rol 84643 n D {caps (Ergocalcife ( [place] UNT Oral (Ergoc ule} rol) 1.25 MG R iver Capsule alcife (88258 UT) Heal th Vitamin D rol) Care) (Ergocalcif 1.25 rhonda) 1.25 MG MG (18175 (62263 UT) UT) Hydrocortis Neomyc 4.0 suspend Neomycin -[place] eCW3 one 10 in-[place] {drop ed ymyxin-HC ([facility] MG/ML / ymyxin s_int 3.5-02915-0 [place] Neomycin -HC o_aff Health 3.5 MG/ML / 3.5-10 ected Care) Polymyxin B 000-1 _ear} 00117 UNT/ML Otic Suspension Neomycin-Po lymyxin-HC 3.5-42671-1 Ciprofloxac UNK 4.0 suspend Ciprofloxa ci eCW3 in-Dexameth {drop ed n-Dexamethas ([place] asone s_int one 0.3-0.1 [place] 0.3-0.1 % o_aff % Health ected Care) _ear} doxycycline Doxycy 1.0 active Doxycycli ne eCW3 hyclate 100 mendieta {tabl Hyclate 100 ([place] MG Oral Hyclat et} mg [place] Tablet e 100 Health Doxycycline mg Care) Hyclate 100 mg Ciprofloxac UNK 4.0 suspend Ciprofloxa ci eCW3 in-Dexameth {drop ed n-Dexamethas ([place] asone s_int one 0.3-0.1 [place] 0.3-0.1 % o_aff % Health ected Care) _ear} Ibuprofen Ibupro active Ibuprofen e CW3 800 MG Oral fen 800 MG ([place] [facility] Tablet 800 MG [facility] Care) Diclofenac Diclof 1.0 suspend Diclofena c eCW3 Sodium 50 enac {tabl ed Sodium 50 mg ( [place] MG Delayed Sodium et} [place] Release 50 mg Health Oral Tablet Care) Diclofenac Sodium 50 mg doxycycline Doxycy 1.0 active Doxycycli ne eCW3 hyclate 100 mendieta {tabl Hyclate 100 ([place] MG Oral Hyclat et} mg [place] Tablet e 100 Health Doxycycline mg Care) Hyclate 100 mg rizatriptan Rizatr 1.0 active Rizatript an eCW3 10 MG Oral iptan {tabl Benzoate 10 ([place] Tablet Benzoa et_as MG [place] Rizatriptan te 10 _need Health Benzoate 10 MG ed_on Care) MG e_tim e} Hydrocortis Neomyc 4.0 suspend Neomycin -[place] eCW3 one 10 in-[place] {drop ed ymyxin-HC ([facility] MG/ML / ymyxin s_int 3.5-65106-1 [place] l[place] Neomycin -HC o_aff Health 3.5 MG/ML / 3.5-10 ected Care) Polymyxin B 000-1 _ear} 95269 UNT/ML Otic Suspension Neomycin-Po lymyxin-HC 3.5-55564-9 topiramate Topira 1.0 suspend Topiramat e eCW3 25 MG Oral mate {tabl ed 25 MG ([place] Tablet 25 MG et} [place] Topiramate Health 25 MG Care) Ciprofloxac Ciprod 4.0 suspend Ciprodex eCW3 in 3 MG/ML ex {drop ed 0.3-0.1 % (Hu dson / 0.3-0. s_int [place] Dexamethaso 1 % o_aff Health ne 1 MG/ML ected Care) Otic _ear} Suspension [Ciprodex] Ciprodex 0.3-0.1 % Amoxicillin Amoxic 1.0 suspend Amoxicil claudio eCW3 500 MG Oral illin {tabl ed 500 mg ([facility] Tablet 500 mg et} [place] Amoxicillin Health 500 mg Care) Amoxicillin Amoxic 1.0 suspend Amoxicil claudio eCW3 500 MG Oral illin {tabl ed 500 mg ([facility] Tablet 500 mg et} [place] Amoxicillin Health 500 mg Care) Insurance Providers Payer name Policy type Policy ID Covered Covered green party's Policy P alyssa / Coverage green party ID relationship to [place] Inf ormation type [place] MVP MEDICAID [id number] HMO O MVP/HHP O [id number] MEDICAID [id number] MEDICAID [id number] SP [id number] Problems, Conditions, and Diagnoses Code Display Name Description Problem Type Effective Data Sour ce(s) Dates Z72.0 Tobacco abuse Tobacco abuse Problem 01/20/2020 eCW3 ([facility] 12:00:00 AM [facility] EDT Care) Z72.0 Tobacco abuse Tobacco abuse Problem 01/20/2020 eCW3 ([facility] 12:00:00 AM [facility] EDT Care) K76.0 Fatty liver Fatty liver Problem 08/18/2019 eCW3 ([place] 12:00:00 AM [facility] EST Care) K76.0 Fatty liver Fatty liver Problem 08/18/2019 eCW3 ([place] 12:00:00 AM [facility] EST Care) K76.0 Fatty liver Fatty liver Problem 08/18/2019 eCW3 ([place] 12:00:00 AM [facility] EST Care) E66.01 Class 3 severe Class 3 severe Problem 06/10/2019 eCW3 ( [place] obesity due to obesity due to 12:00:00 AM [facility] excess calories excess calories EST Care ) without serious without serious comorbidity in comorbidity in adult, unspecified adult, unspecified BMI BMI E66.01 Class 3 severe Class 3 severe Problem 06/10/2019 eCW3 ( [place] obesity due to obesity due to 12:00:00 AM [facility] excess calories excess calories EST Care ) without serious without serious comorbidity in comorbidity in adult, unspecified adult, unspecified BMI BMI E66.01 Class 3 severe Class 3 severe Problem 06/10/2019 eCW3 ( [place] obesity due to obesity due to 12:00:00 AM [facility] excess calories excess calories EST Care ) without serious without serious comorbidity in comorbidity in adult, unspecified adult, unspecified BMI BMI E66.01 Class 3 severe Class 3 severe Problem 06/10/2019 eCW3 ( [place] obesity due to obesity due to 12:00:00 AM [facility] excess calories excess calories EST Care ) without serious without serious comorbidity in comorbidity in adult, unspecified adult, unspecified BMI BMI M51.27 Herniated nucleus Herniated nucleus Problem 04/08/2019 eCW3 ([place] pulposus, L5-S1 pulposus, L5-S1 12:00:00 AM [facility] EDT [facility]) M51.27 Herniated nucleus Herniated nucleus Problem 04/08/2019 eCW3 ([place] pulposus, L5-S1 pulposus, L5-S1 12:00:00 AM [facility] EDT [facility]) M51.27 Herniated nucleus Herniated nucleus Problem 04/08/2019 eCW3 ([place] pulposus, L5-S1 pulposus, L5-S1 12:00:00 AM [facility] EDT [facility]) M51.27 Herniated nucleus Herniated nucleus Problem 04/08/2019 eCW3 ([place] pulposus, L5-S1 pulposus, L5-S1 12:00:00 AM [facility] EDT [facility]) M51.27 Herniated nucleus Herniated nucleus Problem 04/08/2019 eCW3 ([place] pulposus, L5-S1 pulposus, L5-S1 12:00:00 AM [facility] EDT [facility]) J30.2 Seasonal allergies Seasonal allergies Problem 9 eCW3 ([place] 12:00:00 AM [facility] EDT Care) J30.2 Seasonal allergies Seasonal allergies Problem 9 eCW3 ([place] 12:00:00 AM [facility] EDT Care) J30.2 Seasonal allergies Seasonal allergies Problem 9 eCW3 ([place] 12:00:00 AM [facility] EDT Care) J30.2 Seasonal allergies Seasonal allergies Problem 9 eCW3 ([place] 12:00:00 AM [facility] EDT Care) J30.2 Seasonal allergies Seasonal allergies Problem 9 eCW3 ([place] 12:00:00 AM [facility] EDT Care) F39 Mood disorder Mood disorder Problem 11/03/2018 eCW3 ([facility] 12:00:00 AM [facility] EDT Care) F50.00 Anorexia nervosa Anorexia nervosa Problem 11/03/2018 eC W3 ([place] 12:00:00 AM [facility] EDT Care) F39 Mood disorder Mood disorder Problem 11/03/2018 eCW3 ([facility] 12:00:00 AM [facility] EDT Care) F50.00 Anorexia nervosa Anorexia nervosa Problem 11/03/2018 eC W3 ([place] 12:00:00 AM [facility] EDT Care) F39 Mood disorder Mood disorder Problem 11/03/2018 eCW3 ([facility] 12:00:00 AM [facility] EDT Care) F50.00 Anorexia nervosa Anorexia nervosa Problem 11/03/2018 eC W3 ([place] 12:00:00 AM [facility] EDT Care) F39 Mood disorder Mood disorder Problem 11/03/2018 eCW3 ([facility] 12:00:00 AM [facility] EDT Care) G89.29 Other chronic pain Other chronic pain Problem 9 eCW3 ([place] 12:00:00 AM [facility] EDT Care) F32.2 Moderately severe Moderately severe Problem 10/15/2018 eCW3 ([place] depression depression 12:00:00 AM [facility] EDT Care) G89.29 Other chronic pain Other chronic pain Problem 9 eCW3 ([place] 12:00:00 AM [facility] EDT Care) F32.2 Moderately severe Moderately severe Problem 10/15/2018 eCW3 ([place] depression depression 12:00:00 AM [facility] EDT Care) G89.29 Other chronic pain Other chronic pain Problem 9 eCW3 ([place] 12:00:00 AM [facility] EDT Care) F32.2 Moderately severe Moderately severe Problem 10/15/2018 eCW3 ([place] depression depression 12:00:00 AM [facility] EDT Care) G89.29 Other chronic pain Other chronic pain Problem 9 eCW3 ([place] 12:00:00 AM [facility] EDT Care) F32.2 Moderately severe Moderately severe Problem 10/15/2018 eCW3 ([place] depression depression 12:00:00 AM [facility] EDT Care) F41.8 Depression with Depression with Problem 07/23/2018 eCW3 ([place] anxiety anxiety 12:00:00 AM [facility] EST Care) F41.8 Depression with Depression with Problem 07/23/2018 eCW3 ([place] anxiety anxiety 12:00:00 AM [facility] EST Care) F41.8 Depression with Depression with Problem 07/23/2018 eCW3 ([place] anxiety anxiety 12:00:00 AM [facility] EST Care) G43.009 Migraine without Migraine without Problem 05/01/2018 eC W3 ([place] aura and without aura and without 12:00:00 AM [facility] status migrainosus, status migrainosus, EDT Care) not intractable not intractable K21.9 Gastroesophageal Gastroesophageal Problem 05/01/2018 eC W3 ([place] reflux disease reflux disease 12:00:00 AM [facility] without esophagitis without esophagitis EDT Care) G43.009 Migraine without Migraine without Problem 05/01/2018 eC W3 ([place] aura and without aura and without 12:00:00 AM [facility] status migrainosus, status migrainosus, EDT Care) not intractable not intractable K21.9 Gastroesophageal Gastroesophageal Problem 05/01/2018 eC W3 ([place] reflux disease reflux disease 12:00:00 AM [facility] without esophagitis without esophagitis EDT Care) G43.009 Migraine without Migraine without Problem 05/01/2018 eC W3 ([place] aura and without aura and without 12:00:00 AM [facility] status migrainosus, status migrainosus, EDT Care) not intractable not intractable K21.9 Gastroesophageal Gastroesophageal Problem 05/01/2018 eC W3 ([place] reflux disease reflux disease 12:00:00 AM [facility] without esophagitis without esophagitis EDT Care) G43.009 Migraine without Migraine without Problem 05/01/2018 eC W3 ([place] aura and without aura and without 12:00:00 AM [facility] status migrainosus, status migrainosus, EDT Care) not intractable not intractable K21.9 Gastroesophageal Gastroesophageal Problem 05/01/2018 eC W3 ([place] reflux disease reflux disease 12:00:00 AM [facility] without esophagitis without esophagitis EDT Care) K21.9 Gastroesophageal Gastroesophageal Problem 05/01/2018 eC W3 ([place] reflux disease reflux disease 12:00:00 AM [facility] without esophagitis without esophagitis EDT Care) G43.009 Migraine without Migraine without Problem 05/01/2018 eC W3 ([place] aura and without aura and without 12:00:00 AM [facility] status migrainosus, status migrainosus, EDT Care) not intractable not intractable K21.9 Gastroesophageal Gastroesophageal Problem 05/01/2018 eC W3 ([place] reflux disease reflux disease 12:00:00 AM [facility] without esophagitis without esophagitis EDT Care) E66.01 Morbid obesity Morbid obesity Problem 08/18/2017 eCW3 ( [place] 12:00:00 AM [facility] EST Care) E66.01 Morbid obesity Morbid obesity Problem 08/18/2017 eCW3 ( [place] 12:00:00 AM [facility] EST Care) E66.01 Morbid obesity Morbid obesity Problem 08/18/2017 eCW3 ( [place] 12:00:00 AM [facility] EST Care) E66.01 Morbid obesity Morbid obesity Problem 08/18/2017 eCW3 ( [place] 12:00:00 AM [facility] EST Care) E66.01 Morbid obesity Morbid obesity Problem 08/18/2017 eCW3 ( [place] 12:00:00 AM [facility] EST Care) R21 Rash and nonspecific Rash and Problem 03/20/2017 eCW3 ([place] skin eruption nonspecific skin 12:00:00 AM [facility] eruption EDT Care) R21 Rash and nonspecific Rash and Problem 03/20/2017 eCW3 ([place] skin eruption nonspecific skin 12:00:00 AM [facility] eruption EDT Care) R21 Rash and nonspecific Rash and Problem 03/20/2017 eCW3 ([place] skin eruption nonspecific skin 12:00:00 AM [facility] eruption EDT Care) R21 Rash and nonspecific Rash and Problem 03/20/2017 eCW3 ([place] skin eruption nonspecific skin 12:00:00 AM [facility] eruption EDT Care) R21 Rash and nonspecific Rash and Problem 03/20/2017 eCW3 ([place] skin eruption nonspecific skin 12:00:00 AM [facility] eruption EDT Care) E66.9 Obesity Obesity Problem 09/25/2016 eCW3 ([place] 12:00:00 AM [facility] EDT Care) J45.909 Asthma Asthma Problem 09/25/2016 eCW3 ([place] 12:00:00 AM [facility] EDT Care) F99 Neurosis Psychiatric Problem 09/25/2016 eCW3 ([place] diagnosis 12:00:00 AM [facility] EDT Care) G43.909 Migraine Migraine Problem 09/25/2016 eCW3 ([place] 12:00:00 AM [facility] EDT Care) J45.909 Asthma Asthma Problem 09/25/2016 eCW3 ([place] 12:00:00 AM [facility] EDT Care) E66.9 Obesity Obesity Problem 09/25/2016 eCW3 ([place] 12:00:00 AM [facility] EDT Care) N92.6 Menstrual disorder Irregular menses Problem 09/25/2016 eCW3 ([place] 12:00:00 AM [facility] EDT Care) G43.909 Migraine Migraine Problem 09/25/2016 eCW3 ([place] 12:00:00 AM [facility] EDT Care) E66.9 Obesity Obesity Problem 09/25/2016 eCW3 ([place] 12:00:00 AM [facility] EDT Care) F99 Neurosis Psychiatric Problem 09/25/2016 eCW3 ([place] diagnosis 12:00:00 AM [facility] EDT Care) N92.6 Menstrual disorder Irregular menses Problem 09/25/2016 eCW3 ([place] 12:00:00 AM [facility] EDT Care) J45.909 Asthma Asthma Problem 09/25/2016 eCW3 ([place] 12:00:00 AM [facility] EDT Care) F99 Neurosis Psychiatric Problem 09/25/2016 eCW3 ([place] diagnosis 12:00:00 AM [facility] EDT Care) G43.909 Migraine Migraine Problem 09/25/2016 eCW3 ([place] 12:00:00 AM [facility] EDT Care) J45.909 Asthma Asthma Problem 09/25/2016 eCW3 ([place] 12:00:00 AM [facility] EDT Care) N92.6 Menstrual disorder Irregular menses Problem 09/25/2016 eCW3 ([place] 12:00:00 AM [facility] EDT Care) G43.909 Migraine Migraine Problem 09/25/2016 eCW3 ([place] 12:00:00 AM [facility] EDT Care) E66.9 Obesity Obesity Problem 09/25/2016 eCW3 ([place] 12:00:00 AM [facility] EDT Care) F99 Neurosis Psychiatric Problem 09/25/2016 eCW3 ([place] diagnosis 12:00:00 AM [facility] EDT Care) N92.6 Menstrual disorder Irregular menses Problem 09/25/2016 eCW3 ([place] 12:00:00 AM [facility] EDT Care) J45.909 Asthma Asthma Problem 09/25/2016 eCW3 ([place] 12:00:00 AM [facility] EDT Care) 309.81 Posttraumatic stress PTSD (Posttraumatic Problem eCW3 ([place] disorder stress disorder) [facility] (NOS) Care) V69.2 High risk sexual HIGH-RISK SEXUAL Problem eC W3 ([facility]) 296.90 Mood disorder Mood disorder NOS Problem eCW3 ([facility]) 278.00 Overweight Overweight Problem eCW3 ([facility]) 309.81 Posttraumatic stress PTSD (Posttraumatic Problem eCW3 ([place] disorder stress disorder) [facility] (NOS) Care) 788.41 Urinary frequency Urinary frequency Problem eCW3 ([facility]) V69.2 High risk sexual HIGH-RISK SEXUAL Problem eC W3 ([facility]) 296.90 Mood disorder Mood disorder NOS Problem eCW3 ([facility]) 278.00 Overweight Overweight Problem eCW3 ([facility]) 278.00 Overweight Overweight Problem eCW3 ([facility]) 309.81 Posttraumatic stress PTSD (Posttraumatic Problem eCW3 ([place] disorder stress disorder) [facility] (NOS) Care) 296.90 Mood disorder Mood disorder NOS Problem eCW3 ([facility]) V69.2 High risk sexual HIGH-RISK SEXUAL Problem eC W3 ([facility]) 788.41 Urinary frequency Urinary frequency Problem eCW3 ([facility]) 296.90 Mood disorder Mood disorder NOS Problem eCW3 ([facility]) 309.81 Posttraumatic stress PTSD (Posttraumatic Problem eCW3 ([place] disorder stress disorder) [facility] (NOS) Care) 788.41 Urinary frequency Urinary frequency Problem eCW3 ([facility]) 278.00 Overweight Overweight Problem eCW3 ([facility]) V69.2 High risk sexual HIGH-RISK SEXUAL Problem eC W3 ([facility]) 309.81 Posttraumatic stress PTSD (Posttraumatic Problem eCW3 ([place] disorder stress disorder) [facility] (NOS) Care) V69.2 High risk sexual HIGH-RISK SEXUAL Problem eC W3 ([facility]) 788.41 Urinary frequency Urinary frequency Problem eCW3 ([facility]) 296.90 Mood disorder Mood disorder NOS Problem eCW3 ([facility]) 278.00 Overweight Overweight Problem eCW3 ([facility]) N91.2 Amenorrhea, AMENORRHEA, Diagnosis 03/23/2020 [place] unspecified UNSPECIFIED 06:00:00 AM [facility] EDT [facility] R39.14 Feeling of FEELING OF Diagnosis 03/16/2020 [place] incomplete bladder INCOMPLETE BLADDER 02:19:00 PM [facility] emptying EMPTYING EDT Care [facility] R11.2 Nausea with NAUSEA WITH Diagnosis 01/30/2020 [facility] vomiting, VOMITING, 09:32:00 PM [facility] unspecified UNSPECIFIED EDT R10.2 Pelvic and perineal PELVIC AND PERINEAL Diagnosis [facility] pain PAIN 09:32:00 PM [facility] EDT F43.10 Post-traumatic POST-TRAUMATIC Diagnosis 12/16/2019 [place] [facility] stress disorder, STRESS DISORDER, 06:59:00 PM edical Center unspecified UNSPECIFIED EDT I10 Essential (primary) ESSENTIAL (PRIMARY) Diagnosis [facility] hypertension HYPERTENSION 06:59:00 PM Medical C enter EDT J45.909 Unspecified asthma, UNSPECIFIED ASTHMA, Diagnosis [facility] uncomplicated UNCOMPLICATED 06:59:00 PM Medical Center EDT Y92.[address] UNSP PL[address] IN UNSP Diagnosis [facility] unspecified NON-INSTITUT 06:59:00 PM Medical Ce nter non-institutional (PRIVATE) RESIDENCE EDT (private) residence PLACE as the place of occurrence of the external cause W18.30XA Fall on same level, FALL ON SAME LEVEL, Diagnosis [facility] unspecified, initial UNSPECIFIED, 06:59:00 PM edical Center encounter INITIAL ENCOUNTER EDT S83.91XA Sprain of SPRAIN OF Diagnosis 12/16/2019 [facility] unspecified site of UNSPECIFIED SITE OF 06:59:0 0 PM Medical Center right knee, initial RIGHT KNEE, INITIAL EDT encounter ENCOUNTER Y99.8 Other external cause OTHER EXTERNAL Diagnosis 10/08/2018 [facility] status CAUSE STATUS 12:34:00 AM Medical [facility] ter EDT Y92.[address] Diagnosis 10/09/19 19 [facility] not applicable OR NOT APPLICABLE 12:34:00 AM [facility] Center EDT Y93.89 Activity, other ACTIVITY, OTHER Diagnosis 10/08/2018 [place] t [place] specified SPECIFIED 12:34:00 AM Medical Cente r EDT X58.XXXA Exposure to other EXPOSURE TO OTHER Diagnosis 10/08/2018 [facility] specified factors, SPECIFIED FACTORS, 12:34:00 AM Medical Center initial encounter INITIAL ENCOUNTER EDT S93.402A Sprain of SPRAIN OF Diagnosis 10/08/2018 [facility] unspecified ligament UNSPECIFIED 12:34:00 AM Me dical Center of left ankle, LIGAMENT OF LEFT EDT initial encounter ANKLE, INIT ENCNTR M25.579 Pain in unspecified PAIN IN UNSPECIFIED Diagnosis 019 [place] ankle and joints of ANKLE AND JOINTS OF 12:34:0 0 AM Medical Center unspecified foot UNSPECIFIED FOOT EDT Surgeries/Procedures Procedure Description Date Indications Data Source(s) EKG W INTERPRETATION 02/25/2019 eCW3 ([facility] 12:00:00 AM EDT [facility]) Injection, ketorolac 10/15/2018 eCW3 ([facility] tromethamine, per 15 mg 12:00:00 AM EDT [facility]) Results ID Date Data Source [id number] 01/30/2020 10:30:00 PM EDT [facility] 0 Name Value Range Interpretation Description Data Sup porting Code Source(s) Document(s ) Color of Urine YELLOW <content [facility] styleCode="Kristian Nelia d">Color, Medical Urine Center </content>YELL OW <content styleCode="Jaci lics"> (YELLOW )</content> UNK CLEAR <content [facility] styleCode="Kristian Nelia d">Urine Medical Clarity Center </content>ONEIDA R <content styleCode="Jaci lics"> (CLEAR )</content> Glucose NEGATIVE <content [facility] [Mass/volume] styleCode="Kristian Armijos in Urine by d">Urine Medical Test strip Glucose Center </content>NEGA TIVE MG/DL<content styleCode="Jaci lics"> (NEGATIVE MG/DL)</conten t> UNK NEGATIVE <content [facility] styleCode="Kristian Nelia d">Urine Medical Bilirubin Center </content>NEGA TIVE <content styleCode="Jaci lics"> (NEGATIVE )</content> Ketones NEGATIVE <content [facility] [Mass/volume] styleCode="Kristian Nelia in Urine by d">Urine Medical Test strip [facility] </content>NEGA TIVE MG/DL<content styleCode="Jaci lics"> (NEGATIVE MG/DL)</conten t> Specific 1.015-1.02 <content [facility] gravity of 5 styleCode="Kristian Nelia Urine by Test d">Urine Medical strip Specific [facility] [place] </content>1.02 5 <content styleCode="Jaci lics"> (1.015-1.025 )</content> Hemoglobin NEGATIVE <content [facility] [Presence] in styleCode="Kristian Nelia Urine by Test d">Urine Blood Medical strip </content>NEGA Center TIVE <content styleCode="Jaci lics"> (NEGATIVE )</content> pH of Urine by 4.5-8.0 <content [facility] Test strip styleCode="Kristian Nelia d">Urine pH Medical </content>6.0 Center <content styleCode="Jaci lics"> (4.5-8.0 )</content> Urobilinogen 0.2-1.0 <content [facility] [Units/volume] styleCode="Kristian Nelia in Urine by d">Urine Medical Test strip Urobilinogen Center </content>0.2 MG/DL<content styleCode="Jaci lics"> (0.2-1.0 MG/DL)</conten t> Protein NEGATIVE <content [facility] [Mass/volume] styleCode="Kristian Nelia in Urine by d">Urine Medical Test strip Protein Center </content>NEGA TIVE MG/DL<content styleCode="Jaci lics"> (NEGATIVE MG/DL)</conten t> Leukocyte NEGATIVE <content [facility] esterase styleCode="Kristian Nelia [Presence] in d">Urine Medical Urine by Test Leukocyte Center strip </content>NEGA TIVE <content styleCode="Jaci lics"> (NEGATIVE )</content> Nitrite NEGATIVE <content [facility] [Presence] in styleCode="Kristian Nelia Urine by Test d">Urine Medical strip Nitrite Center </content>NEGA TIVE <content styleCode="Jaci lics"> (NEGATIVE )</content> ID Date Data Source HematologyRou.[id number] 01/30/2020 09:50:00 PM EDT [facility] 0400 Name Value Range Interpretation Description Data Sup porting Code Source(s) Document(s ) Leukocytes 4.4-11.0 <content [facility] [#/volume] in styleCode="Bold Nelia Blood by ">White Blood Medical Automated count Cell Count Center </content>8.41 KCUMM<content styleCode="Ital ics"> (4.4-11.0 KCUMM)</content > Erythrocytes 4.0-5.1 <content [facility] [#/volume] in styleCode="Bold Nelia Blood by ">Red Blood Medical Automated count Cell Count Center </content>4.77 MCUMM<content styleCode="Ital ics"> (4.0-5.1 MCUMM)</content > Hemoglobin 12.3-16. <content [facility] [Mass/volume] in 0 styleCode="Bold Nelia Blood ">Hemoglobin Medical </content>12.8 Center G/DL<content styleCode="Ital ics"> (12.3-16.0 G/DL)</content> Hematocrit 36.0-46. <content [facility] [Volume 0 styleCode="Bold Nelia Fraction] of ">Hematocrit Medical Blood by </content>42.0 Center Automated count %<content styleCode="Ital ics"> (36.0-46.0 %)</content> Erythrocyte mean 26.0-34. <content [facility] corpuscular 0 styleCode="Bold Nelia hemoglobin ">Mean Medical [Entitic mass] Corposcular Center by Automated Hemoglobin count </content>26.8 PG<content styleCode="Ital ics"> (26.0-34.0 PG)</content> Erythrocyte mean 80.0-100 <content [facility] corpuscular .0 styleCode="Bold Nelia volume [Entitic ">Mean Medical volume] by Corpuscular Center Automated count Volume </content>88.1 FL<content styleCode="Ital ics"> (80.0-100.0 FL)</content> Erythrocyte 11.5-14. <content [facility] distribution 5 styleCode="Bold Nelia width [Ratio] by ">Red Cell Medical Automated count Distribution Center Width </content>12.9 %<content styleCode="Ital ics"> (11.5-14.5 %)</content> Erythrocyte mean 32.0-37. Below low normal <content [facility] corpuscular 0 styleCode="Bold Nelia hemoglobin ">Mean Corpus. Medical concentration Hgb Center [Mass/volume] by Concentration Automated count (MCHC) </content>30.5 G/DL L<content styleCode="Ital ics"> (32.0-37.0 G/DL)</content> Platelets 130-400 <content [facility] [#/volume] in styleCode="Bold Nelia Blood by ">Platelet Medical Automated count Count Center </content>375 KCUMM<content styleCode="Ital ics"> (130-400 KCUMM)</content > Platelet mean 8.0-11.0 <content [facility] volume [Entitic styleCode="Bold Nelia volume] in Blood ">Mean Platelet Medical by Automated Volume Center count </content>9.7 FL<content styleCode="Ital ics"> (8.0-11.0 FL)</content> UNK 0.0 <content Saint styleCode="Bold Nelia ">Nucleated Red Medical Blood Cell Center Count </content>0.00 KCUMM<content styleCode="Ital ics"> (0.0 KCUMM)</content > UNK 0 <content Saint styleCode="Bold Nelia ">Nucleated Red Medical Blood Cell Center </content>0.0 /100<content styleCode="Ital ics"> (0 /100)</content> ID Date Data Source GFR(Creatinine).[id number] 01/30/2020 09:50:00 PM EDT [facility] 0-0400 Name Value Range Interpretation Code Description Data Pushpa rce(s) Supporting Document(s ) UNK > 60 <content [facility] styleCode="Bold"> Medical Cent er EGFR </content>93 GFR<content styleCode="Italic s"> (> 60 GFR)</content> ID Date Data Source [id number] 01/30/2020 09:50:00 PM EDT [facility] Name Value Range Interpretation Description Data Sup porting Code Source(s) Document(s ) Sodium 137-145 <content [facility] [Moles/volume] styleCode="Kristian Nelia in Serum or d">Sodium Medical Plasma </content>138 Center MEQ/L<content styleCode="Jaci lics"> (137-145 MEQ/L)</conten t> Potassium 3.5-5.3 <content [facility] [Moles/volume] styleCode="Kristian Nelia in Serum or d">Potassium Medical Plasma </content>4.0 Center MEQ/L<content styleCode="Jaci lics"> (3.5-5.3 MEQ/L)</conten t> Chloride 98-107 <content [facility] [Moles/volume] styleCode="Kristian Nelia in Serum or d">Chloride Medical Plasma </content>107 Center MEQ/L<content styleCode="Jaci lics"> (98-107 MEQ/L)</conten t> Carbon 22-30 <content [facility] dioxide, total styleCode="Kristian Nelia [Moles/volume] d">Carbon Medical in Serum or Dioxide Center Plasma </content>24 MEQ/L<content styleCode="Jaci lics"> (22-30 MEQ/L)</conten t> UNK 7-17 <content [facility] styleCode="Kristian Nelia d">BUN Medical </content>9 Center MG/DL<content styleCode="Jaci lics"> (7-17 MG/DL)</conten t> Creatinine 0.5-1.3 <content [facility] [Mass/volume] styleCode="Kristian Nelia in Serum or d">Creatinine Medical Plasma </content>0.8 Center MG/DL<content styleCode="Jaci lics"> (0.5-1.3 MG/DL)</conten t> Calcium 8.4-10.2 <content [facility] [Mass/volume] styleCode="Kristian Nelia in Serum or d">Calcium Medical Plasma </content>9.3 Center MG/DL<content styleCode="Jaci lics"> (8.4-10.2 MG/DL)</conten t> Glucose 74-106 <content [Mass/volume] styleCode="Kristian Pickens in Serum or d">Glucose Medical Plasma </content>93 Center MG/DL<content styleCode="Jaci lics"> (74-106 MG/DL)</conten t> UNK > 60 <content [facility] styleCode="Kristian Nelia d">EGFR Medical </content>93 Center GFR<content styleCode="Jaci lics"> (> 60 GFR)</content> ID Date Data Source [id number] 01/20/2020 11:50:00 AM EDT [facility] Name Value Range Interpretation Description Data Sup porting Code Source(s) Document(s ) SARS [facility] coronavirus 2 RNA This lab was ordered by CRISTIANA BROOKS and reported by [facility]. ID Date Data Source Microbiology 08/08/2018 12:19:00 PM EST [facility] Name Value Range Interpretation Code Description Data Pushpa rce(s) Supporting Document(s ) UNK <item><content [facility] styleCode="Bold"> Medical Cent er Culture Report </content>
<t able><tbody><tr>< td>Specimen Number:</td><td>[id number]</td></tr ><tr><td>Sample Collection Date/Time: </td><td>08/08/2018 12:19 PM</td></tr><tr>< td>Specimen Source:</td><td>U RINE</td></tr><tr ><td>Urine Culture:</td><td> Collection Plate Date: 08/08/2018 12:26 </td></tr><tr><td >Culture Status:</td><td>P reliminary </td></tr><tr><td >Culture Report:</td><td>C ulture in progress </td></tr></tbody ></table></item> UNK <item><content [facility] styleCode="Bold"> Medical Cent er Culture Status </content>
<t able><tbody><tr>< td>Specimen Number:</td><td>[id number]</td></tr ><tr><td>Sample Collection Date/Time: </td><td>08/08/2018 12:19 PM</td></tr><tr>< td>Specimen Source:</td><td>U RINE</td></tr><tr ><td>Culture Status:</td><td>P reliminary </td></tr><tr><td >Culture Report:</td><td>C ulture in progress </td></tr><tr><td >Urine Culture:</td><td> Collection Plate Date: 08/08/2018 12:26 </td></tr></tbody ></table></item> ID Date Data Source Urinalysis 08/08/2018 12:19:00 PM EST [facility] Name Value Range Interpretation Description Data Sup porting Code Source(s) Document(s ) UNK CLEAR <content [facility] styleCode="Kristian Nelia d">Urine Medical Clarity Center </content>ONEIDA R <content styleCode="Jaci lics"> (CLEAR )</content> Glucose NEGATIVE <content [facility] [Mass/volume] styleCode="Kristian Pickens in Urine by d">Urine Medical Test strip Glucose Center </content>NEGA TIVE MG/DL<content styleCode="Jaci lics"> (NEGATIVE MG/DL)</conten t> UNK NEGATIVE <content [facility] styleCode="Kristian Nelia d">Urine Medical Bilirubin Center </content>NEGA TIVE <content styleCode="Jaci lics"> (NEGATIVE )</content> Color of Urine YELLOW <content [facility] styleCode="Kristian Nelia d">Color, Medical Urine Center </content>YELL OW <content styleCode="Jaci lics"> (YELLOW )</content> Ketones NEGATIVE <content [facility] [Mass/volume] styleCode="Kristian Nelia in Urine by d">Urine Medical Test strip [facility] </content>NEGA TIVE MG/DL<content styleCode="Jaci lics"> (NEGATIVE MG/DL)</conten t> Specific 1.015-1.02 <content [facility] gravity of 5 styleCode="Kristian Nelia Urine by Test d">Urine Medical strip Specific [facility] [place] </content>1.02 5 NM<content styleCode="Jaci lics"> (1.015-1.025 NM)</content> Urobilinogen 0.2-1.0 <content [facility] [Units/volume] styleCode="Kristian Nelia in Urine by d">Urine Medical Test strip Urobilinogen Center </content>0.2 MG/DL<content styleCode="Jaci lics"> (0.2-1.0 MG/DL)</conten t> Nitrite NEGATIVE <content [facility] [Presence] in styleCode="Kristian Nelia Urine by Test d">Urine Medical strip Nitrite Center </content>NEGA TIVE <content styleCode="Jaci lics"> (NEGATIVE )</content> Hemoglobin NEGATIVE <content [facility] [Presence] in styleCode="Kristian Nelia Urine by Test d">Urine Blood Medical strip </content>NEGA Center TIVE <content styleCode="Jaci lics"> (NEGATIVE )</content> pH of Urine by 4.5-8.0 <content [facility] Test strip styleCode="Kristian Nelia d">Urine pH Medical </content>6.0 Center NM<content styleCode="Jaci lics"> (4.5-8.0 NM)</content> Protein NEGATIVE <content [facility] [Mass/volume] styleCode="Kristian Nelia in Urine by d">Urine Medical Test strip Protein Center </content>NEGA TIVE MG/DL<content styleCode="Jaci lics"> (NEGATIVE MG/DL)</conten t> UNK 0-3 <content [facility] styleCode="Kristian Nelia d">Urine White Medical Blood Cell Center </content>5 - 10 HPF<content styleCode="Jaci lics"> (0-3 HPF)</content> UNK <content [facility] styleCode="Kristian Pickens d">Epithelial Medical Cell Center </content>2-5 LPF (Reference Range: not available)<br/ > Leukocyte NEGATIVE <content [facility] esterase styleCode="Kristian Pickens [Presence] in d">Urine Medical Urine by Test Leukocyte Center strip </content>MODE RATE <content styleCode="Jaci lics"> (NEGATIVE )</content> ID Date Data Source BMP 08/08/2018 12:15:00 PM EST [facility] Name Value Range Interpretation Description Data Sup porting Code Source(s) Document(s ) Chloride 98-107 <content [facility] [Moles/volume] in styleCode="Bold"> [facility] Serum or Plasma Chloride Medical </content>106 Center MEQ/L<content styleCode="Italic s"> (98-107 MEQ/L)</content> Carbon dioxide, 22-30 <content [facility] total styleCode="Bold"> Nelia [Moles/volume] in Carbon Dioxide Medical Serum or Plasma </content>23 Center MEQ/L<content styleCode="Italic s"> (22-30 MEQ/L)</content> Potassium 3.5-5.3 <content [facility] [Moles/volume] in styleCode="Bold"> [facility] Serum or Plasma Potassium Medical </content>4.1 Center MEQ/L<content styleCode="Italic s"> (3.5-5.3 MEQ/L)</content> Sodium 137-145 <content [facility] [Moles/volume] in styleCode="Bold"> [facility] Serum or Plasma Sodium Medical </content>139 Center MEQ/L<content styleCode="Italic s"> (137-145 MEQ/L)</content> UNK 7-17 <content Saint styleCode="Bold"> Nelia BUN </content>9 Medical MG/DL<content Center styleCode="Italic s"> (7-17 MG/DL)</content> Creatinine 0.5-1.3 <content [facility] [Mass/volume] in styleCode="Bold"> [facility] Serum or Plasma Creatinine Medical </content>0.8 Center MG/DL<content styleCode="Italic s"> (0.5-1.3 MG/DL)</content> Alanine 7-30 <content [facility] aminotransferase styleCode="Bold"> [facility] hs [Enzymatic Alanine Medical activity/volume] Aminotransferase Center in Serum or Plasma (ALT) </content>19 IU/L<content styleCode="Italic s"> (7-30 IU/L)</content> Alkaline 38-126 <content [facility] phosphatase styleCode="Bold"> Nelia [Enzymatic Alkaline Medical activity/volume] Phosphatase (ALP) Cente r in Serum or Plasma </content>61 IU/L<content styleCode="Italic s"> (38-126 IU/L)</content> Aspartate 14-36 <content [facility] aminotransferase styleCode="Bold"> [facility] hs [Enzymatic Aspartate Medical activity/volume] Aminotransferase Center in Serum or Plasma (AST) </content>25 IU/L<content styleCode="Italic s"> (14-36 IU/L)</content> Calcium 8.4-10. <content [facility] [Mass/volume] in 2 styleCode="Bold"> [facility] hs Serum or Plasma Calcium Medical </content>9.1 Center MG/DL<content styleCode="Italic s"> (8.4-10.2 MG/DL)</content> UNK > 60 <content [facility] styleCode="Bold"> Nelia EGFR </content>94 Medical GFR<content Center styleCode="Italic s"> (> 60 GFR)</content> Glucose 74-106 Above high <content [facility] [Mass/volume] in normal styleCode="Bold"> Joshua hs Serum or Plasma Glucose Medical </content>113 Center MG/DL H<content styleCode="Italic s"> (74-106 MG/DL)</content> Albumin 3.5-5.0 <content [facility] [Mass/volume] in styleCode="Bold"> [facility] hs Serum or Plasma Albumin Medical </content>3.8 Center G/DL<content styleCode="Italic s"> (3.5-5.0 G/DL)</content> Bilirubin.total 0.2-1.3 <content [facility] [Mass/volume] in styleCode="Bold"> Joshua hs Serum or Plasma Bilirubin Total Medical </content>0.5 Center MG/DL<content styleCode="Italic s"> (0.2-1.3 MG/DL)</content> ID Date Data Source CHMROUTINECCDA 08/08/2018 12:15:00 PM [facility] Name Value Range Interpretation Description Data Sup porting Code Source(s) Document(s ) Lipase 23-300 <content [facility] [Enzymatic styleCode="Bold Medical activity/vo ">Lipase Center lume] in </content>73 Serum or IU/L<content Plasma styleCode="Ital ics"> (23-300 IU/L)</content> ID Date Data Source GFR(Creatinine) 08/08/2018 12:15:00 PM [facility] Name Value Range Interpretation Code Description Data Pushpa rce(s) Supporting Document(s ) UNK > 60 <content [facility] styleCode="Bold"> Medical Cent er EGFR </content>94 GFR<content styleCode="Italic s"> (> 60 GFR)</content> ID Date Data Source HematologyRou 08/08/2018 12:15:00 PM [facility] Name Value Range Interpretation Description Data Sup porting Code Source(s) Document(s ) Leukocytes 4.4-11.0 <content [facility] [#/volume] in styleCode="Bold Nelia Blood by ">White Blood Medical Automated count Cell Count Center </content>9.35 KCUMM<content styleCode="Ital ics"> (4.4-11.0 KCUMM)</content > Erythrocytes 4.0-5.1 <content [facility] [#/volume] in styleCode="Bold Nelia Blood by ">Red Blood Medical Automated count Cell Count Center </content>4.67 MCUMM<content styleCode="Ital ics"> (4.0-5.1 MCUMM)</content > Hematocrit 36.0-46. <content [facility] [Volume 0 styleCode="Bold Nelia Fraction] of ">Hematocrit Medical Blood by </content>40.5 Center Automated count %<content styleCode="Ital ics"> (36.0-46.0 %)</content> Erythrocyte mean 80.0-100 <content [facility] corpuscular .0 styleCode="Bold Nelia volume [Entitic ">Mean Medical volume] by Corpuscular Center Automated count Volume </content>86.7 FL<content styleCode="Ital ics"> (80.0-100.0 FL)</content> Erythrocyte mean 26.0-34. <content [facility] corpuscular 0 styleCode="Bold Nelia hemoglobin ">Mean Medical [Entitic mass] Corposcular Center by Automated Hemoglobin count </content>26.6 PG<content styleCode="Ital ics"> (26.0-34.0 PG)</content> Hemoglobin 12.3-16. <content [facility] [Mass/volume] in 0 styleCode="Bold Nelia Blood ">Hemoglobin Medical </content>12.4 Center G/DL<content styleCode="Ital ics"> (12.3-16.0 G/DL)</content> Erythrocyte mean 32.0-37. Below low normal <content [facility] corpuscular 0 styleCode="Bold Nelia hemoglobin ">Mean Corpus. Medical concentration Hgb Center [Mass/volume] by Concentration Automated count (MCHC) </content>30.6 G/DL L<content styleCode="Ital ics"> (32.0-37.0 G/DL)</content> Erythrocyte 11.5-14. <content [facility] distribution 5 styleCode="Bold Nelia width [Ratio] by ">Red Cell Medical Automated count Distribution Center Width </content>12.8 %<content styleCode="Ital ics"> (11.5-14.5 %)</content> Platelet mean 8.0-11.0 <content [facility] volume [Entitic styleCode="Bold Nelia volume] in Blood ">Mean Platelet Medical by Automated Volume Center count </content>9.8 FL<content styleCode="Ital ics"> (8.0-11.0 FL)</content> UNK 0 <content [facility] styleCode="Bold Nelia ">Nucleated Red Medical Blood Cell Center </content>0.0 /100<content styleCode="Ital ics"> (0 /100)</content> Platelets 130-400 <content [facility] [#/volume] in styleCode="Bold [facility] Blood by ">Platelet Medical Automated count Count Center </content>368 KCUMM<content styleCode="Ital ics"> (130-400 KCUMM)</content > UNK 0.0 <content [facility] styleCode="Bold Nelia ">Nucleated Red Medical Blood Cell Center Count </content>0.00 KCUMM<content styleCode="Ital ics"> (0.0 KCUMM)</content > ID Date Data Source Liver Profile 08/08/2018 12:15:00 PM EST [facility] Name Value Range Interpretation Description Data Sup porting Code Source(s) Document(s ) Aspartate 14-36 <content [facility] aminotransferase styleCode="Bold"> [facility] hs [Enzymatic Aspartate Medical activity/volume] Aminotransferase Center in Serum or Plasma (AST) </content>25 IU/L<content styleCode="Italic s"> (14-36 IU/L)</content> Alanine 7-30 <content [facility] aminotransferase styleCode="Bold"> [facility] hs [Enzymatic Alanine Medical activity/volume] Aminotransferase Center in Serum or Plasma (ALT) </content>19 IU/L<content styleCode="Italic s"> (7-30 IU/L)</content> Albumin 3.5-5.0 <content [facility] [Mass/volume] in styleCode="Bold"> [facility] hs Serum or Plasma Albumin Medical </content>3.8 Center G/DL<content styleCode="Italic s"> (3.5-5.0 G/DL)</content> Bilirubin.total 0.2-1.3 <content [facility] [Mass/volume] in styleCode="Bold"> [facility] hs Serum or Plasma Bilirubin Total Medical </content>0.5 Center MG/DL<content styleCode="Italic s"> (0.2-1.3 MG/DL)</content> Alkaline 38-126 <content [facility] phosphatase styleCode="Bold"> Nelia [Enzymatic Alkaline Medical activity/volume] Phosphatase (ALP) Cente r in Serum or Plasma </content>61 IU/L<content styleCode="Italic s"> (38-126 IU/L)</content> UNK 0.0-0.3 <content [facility] styleCode="Bold"> Nelia Bilirubin, Direct Medical </content>< 0.2 Center MG/DL<content styleCode="Italic s"> (0.0-0.3 MG/DL)</content> Procedure Social History Code Duration Value Status Description Data Source(s ) Smoking 02/16/2020 Former Smoker completed Former Smoker eCW3 [facility] 01/30/2020 Former Smoker completed Former Smoker [facility] 09:50:00 PM EDT Medical C enter Smoking 01/30/2020 Former Smoker completed Former Smoker [facility] 09:40:00 PM EDT Medical C enter Smoking 01/13/2020 Current Smoker completed Current Smoker eCW3 ( [place] [facility] Smoking 12/23/2019 Current Smoker completed Current Smoker eCW3 ( [place] [facility] Smoking 12/23/2019 Current Smoker completed Current Smoker eCW3 ( [place] 12:00:00 AM [facility] Care) Smoking 12/16/2019 Former Smoker completed Former Smoker [facility] 07:30:00 PM EDT Medical C enter Smoking 12/16/2019 Former Smoker completed Former Smoker [facility] 07:23:00 PM EDT Medical C enter Smoking 09/27/2019 Current Smoker completed Current Smoker eCW3 ( [place] 12:00:00 AM EDT [facility] Care) Smoking 09/27/2019 Current Smoker completed Current Smoker eCW3 ( [place] [facility] Smoking 08/27/2019 Current Smoker completed Current Smoker eCW3 ( [place] 12:00:00 AM EST [facility]) Smoking 06/19/2019 Current Smoker completed Current Smoker eCW3 ( [place] 12:00:00 AM EST [facility] Care) Smoking 05/27/2019 Current Smoker completed Current Smoker eCW3 ( [place] 12:00:00 AM EST [facility]) Smoking 02/17/2019 Current Smoker completed Current Smoker eCW3 ( [place] 12:00:00 AM T [facility]) Smoking 10/08/2018 Former Smoker completed Former Smoker [facility] 12:53:00 AM EDT Medical C enter Smoking 10/08/2018 Former Smoker completed Former Smoker [facility] 12:38:00 AM EDT Medical C enter Smoking 10/08/2018 Former Smoker completed Former Smoker [facility] 12:36:00 AM EDT Medical C enter Smoking 08/08/2018 Former Smoker completed Former Smoker [facility] 12:00:00 PM EST Medical C enter Smoking 08/08/2018 Former Smoker completed Former Smoker [facility] 11:39:00 AM EST Medical C enter Smoking 08/08/2018 Former Smoker completed Former Smoker [facility] 11:30:00 AM EST Medical C enter Smoking 06/04/2018 Former Smoker completed Former Smoker [facility] 11:14:00 AM EST Medical C enter Smoking 06/04/2018 Former Smoker completed Former Smoker [facility] 10:49:00 AM EST Medical C enter Smoking 06/02/2018 Former Smoker completed Former Smoker [facility] 05:11:00 PM EST Medical C enter Former Smoker completed Former Smoker eCW3 ([facility]) Smoking Unknown if ever completed Unknown if ever Jennifer Pickens smoked [facility] Current Smoker completed Current Smoker eCW3 ( [facility]) Current Smoker completed Current Smoker eCW3 ( [facility] Current Smoker completed Current Smoker eCW3 ( [facility]) Current Smoker completed Current Smoker eCW3 ( [facility]) Current Smoker completed Current Smoker eCW3 ( [facility]) Current Smoker completed Current Smoker eCW3 ( [facility]) Current Smoker completed Current Smoker eCW3 ( [facility]) Current Smoker completed Current Smoker eCW3 ( [facility]) Current Smoker completed Current Smoker eCW3 ( [facility]) Vital Signs ID Date Data Source UNK Name Value Range Interpretation Code Description Data Source(s) Body temperature 37.100284 37.954755 [facility] Respiratory rate 18 /min 18 /min [facility] Oxygen saturation 99 % 99 % [facility] Arterial blood Medical Center by Pulse oximetry Heart rate 74 /min 74 /min [facility] Diastolic blood 67 mm[Hg] 67 mm[Hg] [facility] pressure [facility] Systolic blood 121 mm[Hg] 121 mm[Hg] [facility] Body temperature 36.584915 36.863915 [facility] Respiratory rate 17 /min 17 /min [facility] Oxygen saturation 97 % 97 % [facility] Arterial blood [facility] Center by Pulse oximetry Heart rate 78 /min 78 /min [facility] Diastolic blood 68 mm[Hg] 68 mm[Hg] [facility] Systolic blood 125 mm[Hg] 125 mm[Hg] [facility] Body weight 113.711974 113.258624 kg [facility] Measured kg Medical Center Body temperature 36.426327 36.686888 [facility] Respiratory rate 18 /min 18 /min [facility] Oxygen saturation 99 % 99 % [facility] Arterial blood [facility] [facility] by Pulse oximetry Heart rate 74 /min 74 /min [facility] Body height 154.902958 154.822077 cm [facility] Diastolic blood 63 mm[Hg] 63 mm[Hg] [facility] Systolic blood 113 mm[Hg] 113 mm[Hg] [facility] Body mass index 47.0 kg/m2 47.0 kg/m2 [facility] (BMI) [Ratio] [facility] Diastolic blood 67 mm[Hg] 67 mm[Hg] eCW3 ([facility]) Systolic blood 98 mm[Hg] 98 mm[Hg] eCW3 ([facility]) Body temperature 97.9 [degF] 97.9 [degF] eCW3 ( [facility]) Body mass index 48.42 kg/m2 48.42 kg/m2 eCW3 ([facility] (BMI) [Ratio] [facility]) Body weight 250 [lb_av] 250 [lb_av] eCW3 ([facility]) Body height 60.25 [in_i] 60.25 [in_i] eCW3 ([facility]) Diastolic blood 64 mm[Hg] 64 mm[Hg] eCW3 ([facility]) Systolic blood 99 mm[Hg] 99 mm[Hg] eCW3 ([facility]) Body temperature 98.7 [degF] 98.7 [degF] eCW3 ( [facility]) Body mass index 48.42 kg/m2 48.42 kg/m2 eCW3 ([facility] (BMI) [Ratio] [facility]) Body weight 250 [lb_av] 250 [lb_av] eCW3 ([facility]) Body height 60.25 [in_i] 60.25 [in_i] eCW3 ([facility]) Diastolic blood 58 mm[Hg] 58 mm[Hg] eCW3 ([facility]) Systolic blood 99 mm[Hg] 99 mm[Hg] eCW3 ([facility]) Body temperature 98.4 [degF] 98.4 [degF] eCW3 ( [facility]) Body mass index 48.42 kg/m2 48.42 kg/m2 eCW3 ([facility] (BMI) [Ratio] [facility]) Body weight 250 [lb_av] 250 [lb_av] eCW3 ([facility]) Body height 60.25 [in_i] 60.25 [in_i] eCW3 ([facility]) Diastolic blood 79 mm[Hg] 79 mm[Hg] eCW3 ([facility]) Systolic blood 118 mm[Hg] 118 mm[Hg] eCW3 ([facility]) Body temperature 98.0 [degF] 98.0 [degF] eCW3 ( [facility]) Body mass index 48.42 kg/m2 48.42 kg/m2 eCW3 ([facility] (BMI) [Ratio] [facility]) Body weight 250 [lb_av] 250 [lb_av] eCW3 ([facility]) Body height 60.25 [in_i] 60.25 [in_i] eCW3 ([facility]) Diastolic blood 71 mm[Hg] 71 mm[Hg] eCW3 ([facility]) Systolic blood 105 mm[Hg] 105 mm[Hg] eCW3 ([facility]) Body temperature 98.0 [degF] 98.0 [degF] eCW3 ( [facility]) Body mass index 48.22 kg/m2 48.22 kg/m2 eCW3 ([facility] (BMI) [Ratio] [facility]) Body weight 249 [lb_av] 249 [lb_av] eCW3 ([facility]) Body height 60.25 [in_i] 60.25 [in_i] eCW3 ([facility]) Diastolic blood 70 mm[Hg] 70 mm[Hg] eCW3 ([facility]) Systolic blood 116 mm[Hg] 116 mm[Hg] eCW3 ([facility]) Body temperature 98.4 [degF] 98.4 [degF] eCW3 ( [facility]) Body mass index 47.83 kg/m2 47.83 kg/m2 eCW3 ([facility] (BMI) [Ratio] [facility]) Body weight 247 [lb_av] 247 [lb_av] eCW3 ([facility]) Body height 60.25 [in_i] 60.25 [in_i] eCW3 ([facility]) Diastolic blood 73 mm[Hg] 73 mm[Hg] eCW3 ([facility]) Systolic blood 109 mm[Hg] 109 mm[Hg] eCW3 ([facility]) Body temperature 98.3 [degF] 98.3 [degF] eCW3 ( [facility]) Body mass index 46.87 kg/m2 46.87 kg/m2 eCW3 ([facility] (BMI) [Ratio] [facility]) Body weight 242 [lb_av] 242 [lb_av] eCW3 ([facility]) Body height 60.25 [in_i] 60.25 [in_i] eCW3 ([facility]) Diastolic blood 54 mm[Hg] 54 mm[Hg] eCW3 ([facility]) Systolic blood 83 mm[Hg] 83 mm[Hg] eCW3 ([facility]) Body temperature 98.3 [degF] 98.3 [degF] eCW3 ( [facility]) Body mass index 47.64 kg/m2 47.64 kg/m2 eCW3 ([facility] (BMI) [Ratio] [facility]) Body weight 246 [lb_av] 246 [lb_av] eCW3 ([facility]) Body height 60.25 [in_i] 60.25 [in_i] eCW3 ([facility]) Body weight 110.161287 110.468115 kg [facility] Measured kg [facility] Body temperature 36.818155 36.676518 [facility] Respiratory rate 18 /min 18 /min [facility] Oxygen saturation 99 % 99 % [facility] Arterial blood [facility] by Pulse oximetry Heart rate 89 /min 89 /min [facility] Diastolic blood 83 mm[Hg] 83 mm[Hg] [facility] pressure [facility] [place] Systolic blood 144 mm[Hg] 144 mm[Hg] [facility] pressure [facility] Diastolic blood 67 mm[Hg] 67 mm[Hg] eCW3 ([facility]) Systolic blood 91 mm[Hg] 91 mm[Hg] eCW3 ([facility]) Body temperature 98.6 [degF] 98.6 [degF] eCW3 ( [facility]) Body mass index 48.03 kg/m2 48.03 kg/m2 eCW3 ([facility] (BMI) [Ratio] [facility]) Body weight 248 [lb_av] 248 [lb_av] eCW3 ([facility]) Body height 60.25 [in_i] 60.25 [in_i] eCW3 ([facility]) Systolic blood 139 mm[Hg] 139 mm[Hg] [facility] pressure [facility] Diastolic blood 77 mm[Hg] 77 mm[Hg] [facility] Heart rate 78 /min 78 /min [facility] Oxygen saturation 100 % 100 % [facility] Arterial blood [facility] by Pulse oximetry Respiratory rate 18 /min 18 /min [facility] Body temperature 37.868933 37.465647 [facility] Systolic blood 139 mm[Hg] 139 mm[Hg] [facility] Diastolic blood 77 mm[Hg] 77 mm[Hg] [facility] Heart rate 78 /min 78 /min [facility] Oxygen saturation 97 % 97 % [facility] Arter[facility] by Pulse oximetry Respiratory rate 18 /min 18 /min [facility] Body temperature 37.989979 37.495547 [facility] Systolic blood 144 mm[Hg] 144 mm[Hg] [facility] Diastolic blood 85 mm[Hg] 85 mm[Hg] [facility] Heart rate 83 /min 83 /min [facility] Oxygen saturation 98 % 98 % [facility] Arterial blood [facility] by Pulse oximetry Respiratory rate 20 /min 20 /min [facility] Body temperature 36.018440 36.272072 [facility] Diastolic blood 110 mm[Hg] 110 mm[Hg] [facility] Systolic blood 71 mm[Hg] 71 mm[Hg] [facility] Heart rate 72 /min 72 /min [facility] Deprecated Oxygen 99 % 99 % [facility] saturation in [facility] Capillary blood by Oximetry Respiratory rate 16 /min 16 /min [facility] Body temperature 37.072862 37.859410 [facility] Diastolic blood 129 mm[Hg] 129 mm[Hg] [facility] Systolic blood 89 mm[Hg] 89 mm[Hg] [facility] Heart rate 91 /min 91 /min [facility] Deprecated Oxygen 96 % 96 % [facility] saturation in [facility] Capillary blood by Oximetry Respiratory rate 17 /min 17 /min [facility] Body temperature 36.811106 36.594656 [facility] Patient Treatment Plan of Care Planned Activity Planned Date Details Description Data Source (s) Ondansetron 4 MG Oral 12/23/2019 eCW3 ( [place] Tablet [Zofran] 12:00:00 AM [facility]) Acidophilus Probiotic Blend 09/27/2019 eCW3 ([place] - 12:00:00 AM [facility]) Levofloxacin 500 MG Oral 09/27/2019 eCW 3 ([place] Tablet [Levaquin] 12:00:00 AM [facility]) trolamine salicylate 100 05/27/2019 eCW 3 ([place] MG/ML Topical Lotion 12:00:00 AM [facility]) [Aspercreme] 12 HR Guaifenesin 600 MG 05/27/2019 eCW 3 ([place] Extended Release Oral 12:00:00 AM [facility]) Tablet [Mucinex] Amoxicillin 875 MG / 05/27/2019 eCW3 ([place] Clavulanate 125 MG Oral 12:00:00 AM [facility]) Tablet Cyclobenzaprine 02/17/2019 eCW3 ([place] hydrochloride 10 MG Oral 12:00:00 AM [facility]) Tablet Doxycycline Monohydrate 100 02/17/2019 eCW3 ([place] MG Oral Capsule 12:00:00 AM [facility] re) Propranolol Hydrochloride 05/01/2018 eC W3 ([place] 80 MG Oral Tablet 12:00:00 AM [facility]) Propranolol Hydrochloride 05/01/2018 eC W3 ([place] 80 MG Oral Tablet 12:00:00 AM [facility]) Ibuprofen 800 MG Oral 08/18/2017 eCW3 ( [place] Tablet 12:00:00 AM [facility]) Ibuprofen 800 MG Oral 08/18/2017 eCW3 ( [place] Tablet 12:00:00 AM [facility]) 200 ACTUAT Albuterol 0.09 09/25/2016 eC W3 ([place] MG/ACTUAT Metered Dose 12:00:00 AM [facility]) Inhaler [Ventolin] Ibuprofen 800 MG Oral eCW3 ( [place] [facility]) Ciprofloxacin-Dexamethasone eCW3 ([place] 0.3-0.1 % [facility]) Doxycycline Monohydrate 100 eCW3 ([place] MG Oral Capsule [facility]) Doxycycline Monohydrate 100 eCW3 ([place] [facility] Caps[facility]) doxycycline hyclate 100 MG e CW3 ([place] Oral [facility]) pantoprazole 40 MG Delayed S aint Nelia Release Oral Tablet [facility] Diclofenac Sodium 50 MG Jennifer Pickens Delayed Release Oral Tablet [facility]
[2020-03-21 02:41] LABS: BASO % 0.5 % (0-2.0); EOS % 0.8 % (0-4.5); HEMATOCRIT 37.8 % (32.4-45.2); HEMOGLOBIN 12.3 GM/dL (10.7-15.3); LYMPH % 22.4 % (8-40); MCH 27.2 pg (25.7-33.7); MCHC 32.7 g/dl (32.0-36.0); MEAN CELL VOLUME 83.4 fl (80-96); MEAN PLT VOLUME 8.1 fl (7.5-11.1); MONO % 5.8 % (3.8-10.2); NEUT % 70.5 % (42.8-82.8); PLATELET COUNT 383 K/MM3 (134-434); RBC 4.53 M/mm3 (3.60-5.2); RDW 13.4 % (11.6-15.6); WHITE BLOOD COUNT 8.4 K/mm3 (4.0-10.0)
[2020-03-21 03:11] LABS: ALBUMIN 3.3 g/dl (3.4-5.0); BILIRUBIN,TOTAL 0.3 mg/dL (0.2-1); BLOOD UREA NITROGEN 6.1 mg/dL (7-18); CALCIUM 8.7 mg/dL (8.5-10.1); CREATININE 0.9 mg/dL (0.55-1.3); POTASSIUM 3.9 mmol/L (3.5-5.1); TOT PROT 7.3 g/dl (6.4-8.2)
[2020-03-21 03:58] LABS: EPI CELLS >36 /uL (0-25.1); HYALINE CASTS 9 /uL (0-3.1); URINE APPEARANCE CLOUDY; URINE BACTERIA 2763 /uL (0-1359); URINE BILIRUBIN NEGATIVE (NEGATIVE); URINE COLOR YELLOW; URINE GLUCOSE (UA) NEGATIVE (NEGATIVE); URINE KETONE 1+ (NEGATIVE); URINE LEUK ESTERASE 1+ (NEGATIVE); URINE NITRITE NEGATIVE (NEGATIVE); URINE PROTEIN TRACE (NEGATIVE); URINE UROBILINOGEN 0.2 mg/dL (0.2-1.0); URINE WBC 82 /uL (0-25.8)
[2020-03-21 04:26] VITALS: BP 105/78; PULSE 87
--- NOTE | 2020-03-21 10:06 | EKG ---
Test Reason : Blood Pressure : / mmHG Vent. Rate : 071 BPM Atrial Rate : 071 BPM P-R Int : 140 ms QRS Dur : 078 ms QT Int : 390 ms P-R-T Axes : 004 -02 019 degrees QTc Int : 423 ms NORMAL SINUS RHYTHM WITH SINUS ARRHYTHMIA NORMAL ECG WHEN COMPARED WITH ECG OF 10-MAR-2019 13:50, T WAVE INVERSION LESS EVIDENT IN ANTERIOR LEADS Confirmed by MD WINSTON, JEANNE ([id number]) on 03/21/2020 10:06:37 AM Referred By: Confirmed By:JEANNE MONTERO MD
== END 2020-03-21 04:26 | disposition home or self-care (01) ==
LOC: JER 01:25
PROC: 3E0333Z Introduction of Anti-inflammatory into Peripheral Vein, Percutaneous Approach (ICD-10-PCS; principal; 2020-03-21)
PROC: 3E0337Z Introduction of Electrolytic and Water Balance Substance into Peripheral Vein, Percutaneous Approach (ICD-10-PCS; 2020-03-21)
DX: I95.1 Orthostatic hypotension (principal); O21.1 Hyperemesis gravidarum with metabolic disturbance; N30.00 Acute cystitis without hematuria
CPT/HCPCS: 36415; 76801-TC; 80053; 81003; 84702; 85025; 93005; 93010; 99285-25

== ENCOUNTER 2020-12-25 07:44 | Day surgery (SDC) | payer OTHER ==
[2020-12-25 08:36] VITALS: BMI 46.0
[2020-12-25] MEDS ORDERED: BUPIVACAINE LIPOSOME/PF (EXPAREL) 266 MG/20 ML VIAL ONE (08:39)
[2020-12-25] MEDS ORDERED: MIDAZOLAM HCL 2 MG/2 ML SINGLE DOSE VIAL ONE ×2 (08:39→09:49)
[2020-12-25] MEDS ORDERED: BUPIVACAINE HCL 50 ML ONE ×2 (08:40→09:30)
[2020-12-25] MEDS ORDERED: SODIUM CHLORIDE 0.9% P/F 10 ML VIAL IJ ONE (08:40)
[2020-12-25] MEDS ORDERED: BUPIVACAINE HCL/PF 0.25% (2.5MG/ML) 10 ML VIAL ONE (09:20)
[2020-12-25] MEDS ORDERED: BUPIVACAINE HCL/EPINEPHRINE/PF 30 ML VIAL IJ ONE (09:46)
[2020-12-25] MEDS ORDERED: ONDANSETRON 4 MG/2 ML VIAL ONE (09:46)
[2020-12-25] MEDS ORDERED: DEXAMETHASONE SOD PHOSPHATE 4 MG/1 ML VIAL ONE (09:46)
[2020-12-25] MEDS ORDERED: ceFAZolin SODIUM 1 GM VIAL ONE (09:52)
[2020-12-25] MEDS ORDERED: PHENYLEPHRINE HCL 10 MG/1 ML SINGLE DOSE VIAL ONE ×2 (09:53)
[2020-12-25] MEDS ORDERED: FAMOTIDINE 20 MG/50 ML IVPB 20 MG/50 ML MG IVPB ONE (09:57)
[2020-12-25] MEDS ORDERED: HALOPERIDOL LACTATE 5 MG/ML ONE (10:31)
[2020-12-25] MEDS ORDERED: ONDANSETRON 4 MG/2 ML VIAL IVPUSH PRN (10:46)
[2020-12-25] MEDS ORDERED: oxyCODONE HCL 5 MG TABLET PO PRN ×2 (10:46)
[2020-12-25] MEDS ORDERED: LACTATED RINGERS SOLUTION 1,000 ML IV SCH (11:00)
[2020-12-25 13:40] VITALS: PULSE 72
[2020-12-25 13:48] VITALS: BP 118/53
[2020-12-25 14:03] VITALS: TEMP 97.8
== END 2020-12-25 14:06 | disposition home or self-care (01) ==
LOC: FASU 07:44
PROVIDERS: ATTEND Orthopaedic Surgery
PROC: 0YQF0ZZ Repair Right Knee Region, Open Approach (ICD-10-PCS; principal; 2020-12-25 10:21)
PROC: 0SBC4ZZ Excision of Right Knee Joint, Percutaneous Endoscopic Approach (ICD-10-PCS; 2020-12-25 10:21)
DX: M23.51 Chronic instability of knee, right knee (principal); M22.41 Chondromalacia patellae, right knee; M65.9 Synovitis and tenosynovitis, unspecified
CPT/HCPCS: 27427; 29876; C1713; 73560-TC-RT-FY; 76000-TC-FY; 84703; 88304-TC; 94760

== ENCOUNTER 2020-12-27 22:01 | Emergency (ER) | payer OTHER ==
[2020-12-27 22:09] VITALS: TEMP 98.8; BMI 42.8
[2020-12-27] MEDS ORDERED: oxyCODONE HCL 5 MG TABLET PO ONE (22:24)
[2020-12-27] MEDS ORDERED: KETOROLAC TROMETHAMINE 60 MG/2 ML VIAL IM ONE (22:31)
[2020-12-27] MEDS ORDERED: oxyCODONE HCL 5 MG TABLET ONE (22:50)
[2020-12-27] MEDS ORDERED: KETOROLAC TROMETHAMINE 60 MG/2 ML VIAL ONE (22:51)
[2020-12-28] MEDS ORDERED: ASPIRIN 81 MG CHEWABLE TABLETS PO ONE (01:01)
[2020-12-28 01:23] VITALS: BP 96/51; PULSE 62
[2020-12-28] MEDS ORDERED: METHOCARBAMOL 500 MG TABLET PO ONE (01:27)
[2020-12-28] MEDS ORDERED: ASPIRIN 81 MG CHEWABLE TABLETS ONE (01:36)
[2020-12-28] MEDS ORDERED: METHOCARBAMOL 500 MG TABLET ONE (01:36)
== END 2020-12-28 02:06 | disposition home or self-care (01) ==
LOC: JER 22:01
PROC: 3E0233Z Introduction of Anti-inflammatory into Muscle, Percutaneous Approach (ICD-10-PCS; principal; 2020-12-27)
DX: M25.561 Pain in right knee (principal); G89.18 Other acute postprocedural pain
CPT/HCPCS: 73560-TC-RT-FY; 93971-TC; 99284-25

== ENCOUNTER 2021-01-22 18:26 | Inpatient (IN) | payer OTHER ==
[2021-01-22] MEDS ORDERED: SODIUM CHLORIDE 1,000 ML IV STA (20:23)
[2021-01-22] MEDS ORDERED: ONDANSETRON 4 MG/2 ML VIAL IVPUSH ONE (20:23)
[2021-01-22] MEDS ORDERED: morphine CARPU-JECT 4 MG/1 ML DISP.SYRIN IVPUSH ONE (20:23)
[2021-01-22] MEDS ORDERED: ONDANSETRON 4 MG/2 ML VIAL ONE (20:58)
[2021-01-22] MEDS ORDERED: morphine SULFATE 4 MG/ML VIAL ONE (20:58)
[2021-01-22 21:21] LABS: BASO % 0.4 % (0-2.0); EOS % 1.3 % (0-4.5); HEMATOCRIT 36.7 % (32.4-45.2); HEMOGLOBIN 11.7 GM/dL (10.7-15.3); LYMPH % 19.6 % (8-40); MCH 25.9 pg (25.7-33.7); MCHC 31.9 g/dl (32.0-36.0); MEAN PLT VOLUME 7.2 fl (7.5-11.1); MONO % 6.2 % (3.8-10.2); NEUT % 72.5 % (42.8-82.8); PLATELET COUNT 402 10^3/uL (134-434); RBC 4.53 M/mm3 (3.60-5.2); RDW 14.4 % (11.6-15.6); WHITE BLOOD COUNT 13.3 K/mm3 (4.0-10.0)
[2021-01-22 21:47] LABS: CALCIUM 9.1 mg/dL (8.5-10.1)
[2021-01-22 21:48] LABS: ALBUMIN 3.9 g/dl (3.4-5.0); BLOOD UREA NITROGEN 12.8 mg/dL (7-18)
[2021-01-22 21:50] LABS: CREATININE 0.9 mg/dL (0.55-1.3)
[2021-01-22 21:52] LABS: BILIRUBIN,TOTAL 0.4 mg/dL (0.2-1); TOT PROT 7.9 g/dl (6.4-8.2)
[2021-01-22] MEDS ORDERED: morphine CARPU-JECT 8 MG/1 ML DISP.SYRIN IVPUSH ONE (21:56)
[2021-01-22 23:08] LABS: EPI CELLS >36 /uL (0-25.1); HCG,QUALITATIVE URINE Negative; HYALINE CASTS 0 /uL (0-3.1); URINE APPEARANCE CLEAR; URINE BACTERIA 1363 /uL (0-1359); URINE BILIRUBIN NEGATIVE (NEGATIVE); URINE COLOR YELLOW; URINE GLUCOSE (UA) NEGATIVE (NEGATIVE); URINE KETONE NEGATIVE (NEGATIVE); URINE LEUK ESTERASE 1+ (NEGATIVE); URINE NITRITE NEGATIVE (NEGATIVE); URINE PROTEIN NEGATIVE (NEGATIVE); URINE WBC 53 /uL (0-25.8)
[2021-01-22] MEDS ORDERED: MORPHINE SULFATE 2 MG/ML VIAL ONE (23:24)
[2021-01-23 00:41] LABS: URINE RBC 3-5/HPF /uL (0-23.9)
[2021-01-23] MEDS ORDERED: CEFTRIAXONE 1,000 MG in DEXTROSE 5%-WATER - 50 ML IVPB ONE (00:52)
[2021-01-23] MEDS ORDERED: morphine CARPU-JECT 10 MG/1 ML DISP.SYRIN IVPUSH ONE (00:53)
[2021-01-23] MEDS ORDERED: SODIUM CHLORIDE 1,000 ML IV SCH (01:00)
[2021-01-23] MEDS ORDERED: CEFTRIAXONE 1 GM/50 ML BAG ONE (01:02)
[2021-01-23] MEDS ORDERED: morphine SULFATE 4 MG/ML VIAL ONE (01:04)
[2021-01-23] MEDS ORDERED: MORPHINE SULFATE 2 MG/ML VIAL ONE (01:05)
[2021-01-23 04:39] VITALS: BMI 44.5
[2021-01-23] MEDS ORDERED: MORPHINE SULFATE 2 MG/ML VIAL IVPUSH PRN ×2 (05:26→15:21)
[2021-01-23] MEDS ORDERED: D5-NS + 20 MEQ KCL - 20 MEQ/1,000 ML INFUS.BAG IV SCH ×2 (08:00→15:31)
[2021-01-23 08:26] LABS: BASO % 0.4 % (0-2.0); EOS % 1.6 % (0-4.5); HEMATOCRIT 36.6 % (32.4-45.2); HEMOGLOBIN 11.5 GM/dL (10.7-15.3); MCH 25.6 pg (25.7-33.7); MCHC 31.3 g/dl (32.0-36.0); MEAN CELL VOLUME 81.9 fl (80-96); MEAN PLT VOLUME 7.8 fl (7.5-11.1); MONO % 5.5 % (3.8-10.2); NEUT % 60.5 % (42.8-82.8); PLATELET COUNT 375 10^3/uL (134-434); RBC 4.47 M/mm3 (3.60-5.2); RDW 14.6 % (11.6-15.6); WHITE BLOOD COUNT 8.8 K/mm3 (4.0-10.0)
[2021-01-23 08:33] LABS: INR 0.97 (0.83-1.09)
[2021-01-23 08:36] LABS: ACTIVATED PTT 29.6 SECONDS (25.2-36.5)
[2021-01-23 08:41] LABS: MAGNESIUM 2.2 mg/dL (1.8-2.4)
[2021-01-23 08:45] LABS: PHOSPHOROUS 4.4 mg/dL (2.5-4.9)
[2021-01-23] MEDS ORDERED: BUPIVACAINE HCL/PF 0.5% (5MG/ML) 10 ML VIAL ONE ×2 (11:57→12:50)
[2021-01-23] MEDS ORDERED: DEXAMETHASONE SOD PHOSPHATE 4 MG/1 ML VIAL ONE (12:03)
[2021-01-23] MEDS ORDERED: ONDANSETRON 4 MG/2 ML VIAL ONE ×2 (12:03→15:03)
[2021-01-23] MEDS ORDERED: LIDOCAINE HCL/PF 2% SDV 5ML VIAL ONE (12:03)
[2021-01-23] MEDS ORDERED: MIDAZOLAM HCL 2 MG/2 ML SINGLE DOSE VIAL ONE (12:04)
[2021-01-23] MEDS ORDERED: fentaNYL CITRATE 250 MCG/5 ML VIAL ONE (12:04)
[2021-01-23] MEDS ORDERED: PROPOFOL 20 ML ONE (12:04)
[2021-01-23] MEDS ORDERED: BUPIVACAINE HCL/PF 0.5% (5MG/ML) 10 ML VIAL IJ ONE (13:01)
[2021-01-23] MEDS ORDERED: ROCURONIUM BROMIDE 50 MG/5 ML SYRINGE ONE (13:54)
[2021-01-23] MEDS ORDERED: NEOSTIGMINE METHYLSULFATE 0.5 MG/1 ML - 10 ML MDV ONE (14:25)
[2021-01-23] MEDS ORDERED: KETOROLAC TROMETHAMINE 30 MG/1 ML VIAL ONE (14:26)
[2021-01-23] MEDS ORDERED: GLYCOPYRROLATE 0.2 MG/1 ML VIAL ONE (14:26)
[2021-01-23] MEDS ORDERED: BUPIVACAINE HCL/PF 0.5% (5 MG/ML) 30 ML VIAL IJ ONE (14:33)
[2021-01-23] MEDS ORDERED: PROMETHAZINE HCL 25 MG/1 ML VIAL ONE (15:15)
[2021-01-23] MEDS ORDERED: ALBUTEROL SO4 HFA INHALER IH PRN (15:15)
[2021-01-23] MEDS ORDERED: oxyCODONE HCL 5 MG TABLET PO PRN (15:16)
[2021-01-23] MEDS ORDERED: ACETAMINOPHEN 500 MG TABLET (FP) PO PRN (15:17)
[2021-01-23] MEDS ORDERED: PROMETHAZINE HCL 25 MG/1 ML VIAL IVPB ONE (15:48)
[2021-01-23] MEDS ORDERED: CEFTRIAXONE 1 GM in DEXTROSE 5%-WATER - 50 ML IVPB SCH (18:00)
[2021-01-23] MEDS: oxyCODONE HCL 5 MG TABLET PO PRN (18:26)
[2021-01-23] MEDS: LACTATED RINGERS SOLUTION 1,000 ML IV SCH (18:27)
[2021-01-23] MEDS ORDERED: ASPIRIN 325 MG ENTERIC COATED TABLET (FP) PO SCH (22:00)
[2021-01-23] MEDS: HEPARIN NA (PORCINE) 5,000 UNITS/ML 1ML VIAL SQ SCH (22:53)
[2021-01-24] MEDS: LACTATED RINGERS SOLUTION 1,000 ML IV SCH (06:11)
[2021-01-24] MEDS: oxyCODONE HCL 5 MG TABLET PO PRN ×2 (08:10→14:38)
[2021-01-24] MEDS ORDERED: PANTOPRAZOLE SODIUM 40 MG VIAL IVPUSH SCH ×2 (10:00)
[2021-01-24] MEDS ORDERED: ARIPiprazole 2 MG TABLET PO SCH (10:00)
[2021-01-24] MEDS: HEPARIN NA (PORCINE) 5,000 UNITS/ML 1ML VIAL SQ SCH (11:20)
[2021-01-24 18:38] VITALS: BP 124/73; PULSE 66; TEMP 98
== END 2021-01-24 19:33 | disposition home or self-care (01) | DRG 225 ==
LOC: JER 18:26 → JERBED 01-23 01:34 → UNDOADMOB 01-23 01:34 → JERBED 01-23 04:12 → J5S 01-23 04:12 → OBSVTOIN 01-23 05:19 → INTOOBSV 01-23 05:19 → JASUSAT 01-23 13:18 → J5S 01-23 14:49 → JASUSAT 01-24 15:03 → J5S 01-24 15:04
PROVIDERS: ADMIT Internal Medicine; ATTEND Internal Medicine
PROC: 0DTJ4ZZ Resection of Appendix, Percutaneous Endoscopic Approach (ICD-10-PCS; principal; 2021-01-23 13:30)
DX: K35.80 Unspecified acute appendicitis (principal); J45.909 Unspecified asthma, uncomplicated; K59.09 Other constipation; E66.01 Morbid (severe) obesity due to excess calories; Z68.41 Body mass index [BMI] 40.0-44.9, adult; K58.9 Irritable bowel syndrome, unspecified; M79.7 Fibromyalgia; G43.909 Migraine, unspecified, not intractable, without status migrainosus; N39.0 Urinary tract infection, site not specified; M32.9 Systemic lupus erythematosus, unspecified; K44.9 Diaphragmatic hernia without obstruction or gangrene; K76.0 Fatty (change of) liver, not elsewhere classified; F41.8 Other specified anxiety disorders; A04.8 Other specified bacterial intestinal infections
CPT/HCPCS: 36415; 71046-TC-FY; 74177-TC; 76705-TC; 80053; 81003; 83690; 83735; 84100; 84436; 84443; 84703; 85025; 85027; 85610; 85730; 86850; 86900; 86901; 87086; 93005; 93010; 94760; 99285-25; C9803; J1644; Q9967; U0003; U0005

== ENCOUNTER 2021-05-07 19:21 | Emergency (ER) | payer OTHER ==
[2021-05-07 19:29] VITALS: BP 107/73; PULSE 92; TEMP 98.6; BMI 50.8
[2021-05-07 20:47] LABS: PH,URINE 7.5 (5.0-8.0); URINE APPEARANCE CLEAR; URINE BILIRUBIN NEGATIVE (NEGATIVE); URINE COLOR YELLOW; URINE GLUCOSE (UA) NEGATIVE (NEGATIVE); URINE KETONE NEGATIVE (NEGATIVE); URINE LEUK ESTERASE NEGATIVE (NEGATIVE); URINE NITRITE NEGATIVE (NEGATIVE); URINE PROTEIN NEGATIVE (NEGATIVE)
[2021-05-07] MEDS ORDERED: ACETAMINOPHEN 500 MG TABLET (FP) PO ONE (20:53)
[2021-05-07] MEDS ORDERED: ACETAMINOPHEN 500 MG TABLET (FP) ONE (21:24)
[2021-05-07 21:30] LABS: BASO % 0.7 % (0-2.0); EOS % 3.2 % (0-4.5); HEMATOCRIT 37.7 % (32.4-45.2); HEMOGLOBIN 12.2 GM/dL (10.7-15.3); MCH 25.8 pg (25.7-33.7); MCHC 32.3 g/dl (32.0-36.0); MEAN CELL VOLUME 79.9 fl (80-96); MEAN PLT VOLUME 7.7 fl (7.5-11.1); MONO % 7.2 % (3.8-10.2); NEUT % 53.9 % (42.8-82.8); PLATELET COUNT 368 10^3/uL (134-434); RBC 4.72 M/mm3 (3.60-5.2); RDW 14.8 % (11.6-15.6); WHITE BLOOD COUNT 8.1 K/mm3 (4.0-10.0)
[2021-05-07 22:29] LABS: ALBUMIN 3.5 g/dl (3.4-5.0); ALK PHOS 74 U/L (45-117); ANION GAP 11 MMOL/L (8-16); BILIRUBIN,TOTAL 0.5 mg/dL (0.2-1); BLOOD UREA NITROGEN 11.5 mg/dL (7-18); CALCIUM 8.7 mg/dL (8.5-10.1); CHLORIDE 110 mmol/L (98-107); CO2 19 mmol/L (21-32); GLUCOSE,RANDOM 89 mg/dL (74-106); SGOT/AST 27 U/L (15-37); SGPT/ALT 31 U/L (13-61); SODIUM 141 mmol/L (136-145); TOT PROT 7.7 g/dl (6.4-8.2)
[2021-05-07] MEDS ORDERED: IBUPROFEN 600 MG TABLET (FP) PO ONE ×2 (22:42→22:46)
== END 2021-05-07 22:48 | disposition home or self-care (01) ==
LOC: JER 19:21
DX: N83.202 Unspecified ovarian cyst, left side (principal); K59.00 Constipation, unspecified
CPT/HCPCS: 36415; 76830-TC; 80053; 81003; 84702; 84703; 85025; 87086; 99284-25

== ENCOUNTER 2021-07-09 08:09 | Emergency (ER) | payer OTHER ==
[2021-07-09 08:17] VITALS: BP 107/54; PULSE 97; TEMP 98.1; BMI 47.5
== END 2021-07-09 09:05 | disposition home or self-care (01) ==
LOC: JER 08:09
DX: O98.512 Other viral diseases complicating pregnancy, second trimester (principal); U07.1 COVID-19; Z34.90 Encounter for supervision of normal pregnancy, unspecified, unspecified trimester
CPT/HCPCS: 87804; 99283-25; C9803; U0003; U0005

== ENCOUNTER 2022-02-10 21:05 | Emergency (ER) | payer OTHER ==
[2022-02-10 21:36] VITALS: TEMP 98.8; BMI 43.2
[2022-02-10] MEDS ORDERED: BEBTELOVIMAB (EUA) 175 MG/2 ML VIAL IVPUSH ONE (22:58)
[2022-02-11] MEDS ORDERED: SODIUM CHLORIDE 0.9% 500 ML INFUS.BAG IV ONE (00:03)
[2022-02-11 00:39] VITALS: BP 102/68; PULSE 91; RESP 18
== END 2022-02-11 01:00 | disposition left against medical advice (07) ==
LOC: JER 21:05
DX: O98.53 Other viral diseases complicating the puerperium (principal); U07.1 COVID-19
CPT/HCPCS: 0241U-QW; 93005; 93010; 96374; 99284-25; M0222; Q0222

== ENCOUNTER 2022-05-03 06:33 | Day surgery (SDC) | payer OTHER ==
[2022-05-01 18:45] VITALS: BMI 44.9
[2022-05-03 07:02] VITALS: RESP 16
[2022-05-03] MEDS ORDERED: ROPIVACAINE HCL 0.5% 30ML VIAL ONE (07:32)
[2022-05-03] MEDS ORDERED: MIDAZOLAM HCL 2 MG/2 ML SINGLE DOSE VIAL ONE (07:32)
[2022-05-03] MEDS ORDERED: DEXAMETHASONE SOD PHOSPHATE/PF 10 MG/ML SDV ONE (07:32)
[2022-05-03] MEDS ORDERED: BUPIVACAINE HCL/EPINEPHRINE/PF 30 ML VIAL IJ ONE (07:39)
[2022-05-03] MEDS ORDERED: ROCURONIUM BROMIDE 50 MG/5 ML SYRINGE ONE ×2 (07:46→09:24)
[2022-05-03] MEDS ORDERED: PROPOFOL 40 ML ONE (07:46)
[2022-05-03] MEDS ORDERED: SUCCINYLCHOLINE CHLORIDE 200 MG/10 ML SYRINGE ONE (07:47)
[2022-05-03] MEDS ORDERED: LIDOCAINE HCL 2% JELLY 11 ML TP ONE (07:48)
[2022-05-03] MEDS ORDERED: LIDOCAINE HCL/PF 2% SDV 5ML VIAL ONE (07:48)
[2022-05-03] MEDS ORDERED: ACETAMINOPHEN 325 MG TABLET (FP) PO PRN (07:51)
[2022-05-03] MEDS ORDERED: IBUPROFEN 400 MG TABLET (FP) PO PRN (07:51)
[2022-05-03] MEDS ORDERED: GLYCOPYRROLATE 0.2 MG/1 ML VIAL ONE ×2 (08:24→10:09)
[2022-05-03] MEDS ORDERED: NEOSTIGMINE METHYLSULFATE 0.5 MG/1 ML - 10 ML MDV ONE (10:09)
[2022-05-03] MEDS ORDERED: ONDANSETRON 4 MG/2 ML VIAL IVPUSH PRN (10:38)
[2022-05-03] MEDS ORDERED: oxyCODONE HCL 5 MG TABLET PO PRN ×2 (10:38)
[2022-05-03] MEDS ORDERED: FENTANYL CITRATE/PF 50 MCG/ML VIAL ONE (10:59)
[2022-05-03 11:39] VITALS: TEMP 97.7
[2022-05-03] MEDS ORDERED: oxyCODONE HCL 5 MG TABLET PO ONE (11:50)
[2022-05-03] MEDS ORDERED: oxyCODONE HCL 5 MG TABLET ONE (11:56)
[2022-05-03 13:06] VITALS: BP 114/77; PULSE 93
== END 2022-05-03 13:00 | disposition home or self-care (01) ==
LOC: FASU 06:33
PROVIDERS: ATTEND Orthopaedic Surgery
PROC: 0RQK4ZZ Repair Left Shoulder Joint, Percutaneous Endoscopic Approach (ICD-10-PCS; principal; 2022-05-03 08:48)
PROC: 0LM24ZZ Reattachment of Left Shoulder Tendon, Percutaneous Endoscopic Approach (ICD-10-PCS; 2022-05-03 08:48)
DX: S43.015D Anterior dislocation of left humerus, subsequent encounter (principal); S43.432D Superior glenoid labrum lesion of left shoulder, subsequent encounter; M24.412 Recurrent dislocation, left shoulder; X58.XXXD Exposure to other specified factors, subsequent encounter
CPT/HCPCS: 81025; 82962; 94760; C1713

== ENCOUNTER 2022-05-20 11:04 | Emergency (ER) | payer OTHER ==
[2022-05-20 11:56] VITALS: BP 125/68; PULSE 72; RESP 18; TEMP 98.1; BMI 43.4
== END 2022-05-20 15:14 | disposition left against medical advice (07) ==
LOC: JER 11:04
DX: R11.2 Nausea with vomiting, unspecified (principal); R10.9 Unspecified abdominal pain
CPT/HCPCS: 99281-25

== ENCOUNTER 2022-06-07 06:22 | Emergency (ER) | payer OTHER ==
[2022-06-07 06:34] VITALS: BMI 43.3
[2022-06-07] MEDS ORDERED: ONDANSETRON 4 MG/2 ML VIAL IVPUSH ONE (07:42)
[2022-06-07] MEDS ORDERED: ACETAMINOPHEN 1000 MG/100 ML BAG IVPB ONE (07:42)
[2022-06-07] MEDS ORDERED: ACETAMINOPHEN INJECTION 100 ML IVPB ONE (08:07)
[2022-06-07] MEDS ORDERED: ONDANSETRON 4 MG/2 ML VIAL ONE (08:07)
[2022-06-07 08:25] LABS: BASO % 0.5 % (0-2.0); EOS % 1.7 % (0-4.5); HEMATOCRIT 36.9 % (32.4-45.2); HEMOGLOBIN 11.6 GM/dL (10.7-15.3); LYMPH % 25.8 % (8-40); MCH 25.4 pg (25.7-33.7); MCHC 31.5 g/dl (32.0-36.0); MEAN CELL VOLUME 80.7 fl (80-96); MEAN PLT VOLUME 7.7 fl (7.5-11.1); MONO % 6.1 % (3.8-10.2); NEUT % 65.9 % (42.8-82.8); PLATELET COUNT 415 10^3/uL (134-434); RBC 4.57 M/mm3 (3.60-5.2); RDW 14.1 % (11.6-15.6); WHITE BLOOD COUNT 10.5 K/mm3 (4.0-10.0)
[2022-06-07 08:30] LABS: ACTIVATED PTT 30.9 SECONDS (25.2-36.5); INR 1.12 (0.83-1.09); PROTHROMBIN TIME (PATIENT) 12.9 SEC (9.7-13.0)
[2022-06-07 08:32] LABS: CALCIUM 8.3 mg/dL (8.5-10.1)
[2022-06-07 08:33] LABS: ALBUMIN 3.3 g/dl (3.4-5.0); BLOOD UREA NITROGEN 9.9 mg/dL (7-18)
[2022-06-07 08:36] LABS: CREATININE 0.7 mg/dL (0.55-1.3)
[2022-06-07 08:37] LABS: TOT PROT 7.2 g/dl (6.4-8.2)
[2022-06-07 08:38] LABS: BILIRUBIN,TOTAL 0.5 mg/dL (0.2-1)
[2022-06-07] MEDS ORDERED: KETOROLAC TROMETHAMINE 30 MG/1 ML VIAL IVPUSH ONE (11:09)
[2022-06-07] MEDS ORDERED: KETOROLAC TROMETHAMINE 30 MG/1 ML VIAL ONE (11:18)
[2022-06-07 12:02] LABS: URINE APPEARANCE CLEAR; URINE BILIRUBIN NEGATIVE (NEGATIVE); URINE COLOR YELLOW; URINE GLUCOSE (UA) NEGATIVE (NEGATIVE); URINE KETONE NEGATIVE (NEGATIVE); URINE LEUK ESTERASE NEGATIVE (NEGATIVE); URINE NITRITE NEGATIVE (NEGATIVE); URINE PROTEIN TRACE (NEGATIVE); URINE UROBILINOGEN 0.2 mg/dL (0.2-1.0)
[2022-06-07 12:49] VITALS: BP 94/46; PULSE 72; RESP 18
== END 2022-06-07 12:50 | disposition home or self-care (01) ==
LOC: JER 06:22
PROC: 3E0333Z Introduction of Anti-inflammatory into Peripheral Vein, Percutaneous Approach (ICD-10-PCS; principal; 2022-06-07)
PROC: 3E0333Z Introduction of Anti-inflammatory into Peripheral Vein, Percutaneous Approach (ICD-10-PCS; 2022-06-07)
PROC: 3E033GC Introduction of Other Therapeutic Substance into Peripheral Vein, Percutaneous Approach (ICD-10-PCS; 2022-06-07)
DX: R10.11 Right upper quadrant pain (principal)
CPT/HCPCS: 0241U-QW; 36415; 71046-TC-FY; 76705-TC; 80053; 81003; 83690; 84703; 85025; 85610; 85730; 99285-25; C9803-CS; U0003; U0005

== ENCOUNTER 2023-09-13 18:16 | Emergency (ER) | payer OTHER ==
[2023-09-13 18:32] VITALS: BP 133/58; PULSE 99; RESP 16; TEMP 98.4; BMI 49.8
== END 2023-09-13 21:27 | disposition home or self-care (01) ==
LOC: JER 18:16 → JERFT 18:16
DX: M79.631 Pain in right forearm (principal)
CPT/HCPCS: 93971; 99284-25